=== PATIENT | male | born 1950 | race African-American/Black ===

== ENCOUNTER 2018-01-16 22:08 | Emergency (ER) | payer OTHER ==
[2018-01-16 22:37] VITALS: BP 137/91; PULSE 88; TEMP 98.2; BMI 22.8
--- NOTE | 2018-01-16 22:53 | PDOC ---
Attending Attestation - HPI HPI: 01/16/18 23:38 The patient is a 67 year old male brought in by EMS, with a significant past medical history of HIV, COPD, lung cancer, pneumonia, sepsis, and alcoholism, who presents to the emergency department for alcohol intoxication. The patient reports he drank "2 beers", took the #2 bus to go home, but ended up in a location he was not familiar with, and dialed 911, which prompted his visit to the emergency department. The patient denies falls, complaints, and any other symptoms. PCP: Dr. Cortes <Felicia Robles - Last Filed: 01/16/18 23:38> - Resident Resident Name: Ruth Ann Keyes - ED Attending Attestation I have performed the following: I have examined & evaluated the patient, The case was reviewed & discussed with the resident, I agree w/resident's findings & plan, Exceptions are as noted - Physicial Exam PE: 01/17/18 01:44 patient is Somnolent, easily arousable to verbal stimuli, alcohol on breath is noted, in no distress Normocephalic, atraumatic PERRLA, EOMI, no nystagmus Cranial nerves II through XII grossly intact, motor is 5 of 54; gait is deferred at this time - Medical Decision Making 01/17/18 01:45 Patient 67-year-old male with history of HIV, alcohol abuse who presents to the ER with acute alcohol intoxication. No traumatic injuries are noted. Patient denies toxic co-ingestion. No focal neurological deficits are noted. There is no evidence of overt trauma. Will observe to clinical sobriety and will discharge. <Walter Fine - Last Filed: 01/17/18 01:46> Attestations - Attestations Documentation prepared by Felicia Robles, acting as site medical director for Walter Fine MD. <Felicia Robles - Last Filed: 01/16/18 23:38>
--- NOTE | 2018-01-16 23:46 | PDOC ---
History of Present Illness - General Chief Complaint: Alcohol intoxication Stated Complaint: INTOX Time Seen by Provider: 01/16/18 22:13 History Source: Patient Exam Limitations: No Limitations - History of Present Illness Initial Comments: This is a 67 YOM with h/o HIV (CD4 256 and HIV-1 RNA 30 on 12/23/17, patient states he is on HAART), COPD, HLD, and elevated PSA for which he had a prostate biopsy about [address] Purcell, who was BIBA for intoxication. The patient states he was drinking around [facility] after buying beer from a convenience store, and he took the #2 bus to get home, but somehow the bus took him too far and he ended up being dropped off near our hospital. He called 911 because he did not know what else to do. He denies any symptoms currently, and denies having fallen or injured himself tonight or any time recently. He is followed by Dr. Cortes for ID and also by Dr. Purcell. Past History - Past Medical History Allergies/Adverse Reactions: Allergies Allergy/AdvReac Type Severity Reaction Status Date / Time No Known Allergies Allergy Verified 01/08/16 15:21 Home Medications: Ambulatory Orders Ipratropium/Albuterol Sulfate [Combivent Respimat Inhal [place]] 4 gm IH BID #1 mist.inhal 05/13/17 Albuterol Sulfate 0.5% [Ventolin 0.5% Nebulizing Soln. -] 1 amp NEB Q6H PRN #1 box 06/24/17 Budesonide/Formeterol Fumarate [SYMBICORT 160/4.5mcg -] 1 inh PO DAILY #1 cannister 06/24/17 Ipratropium/Albuterol Sulfate [Combivent Respimat Inhal [place]] 4 gm IH BID #30 aer.w.adap 06/24/17 Nebulizer [Compact Compressor Nebulizer] 1 each MC PRN #1 each 06/24/17 Albuterol Sulfate Inhaler - [Ventolin Hfa Inhaler -] 1 - 2 inh PO QID PRN #1 inhaler 06/25/17 Elviteg/Cob/Emtri/Tenof Alafen [Genvoya (Non-Formulary)] 1 each PO DAILY #30 tablet 08/12/17 Atorvastatin Ca [Lipitor] 10 mg PO HS #30 tablet 08/19/17 Anemia: No Asthma: No Cancer: No Cardiac Disorders: No CVA: No COPD: Yes CHF: No Dementia: No Diabetes: No GI Disorders: No Disorders: No HTN: No Hypercholesterolemia: No Liver Disease: No Seizures: No Thyroid Disease: No - Suicide/Smoking/Psychosocial Hx Smoking History: Former smoker Have you smoked in the past 12 months: Yes Number of Cigarettes Smoked Daily: 10 If you are a former smoker, when did you quit?: 3 MONTHS AGO Cigars Per Day: 0 Information on smoking cessation initiated: No 'Breaking Loose' booklet given: 01/21/15 Hx Alcohol Use: No Drug/Substance Use Hx: No Substance Use Type: None Hx Substance Use Treatment: No Review of Systems - Review of Systems Able to Perform ROS?: Yes Constitutional: No: Chills, Fever, Unexplained wgt Loss HEENTM: No: Nose Congestion, Throat Pain Respiratory: No: Cough, Shortness of Breath Cardiac (ROS): No: Chest Pain, Palpitations ABD/GI: No: Constipated, Diarrhea, Nausea, Vomiting : No: Burning, Dysuria Musculoskeletal: No: Back Pain, Neck Pain Integumentary: No: Bruising, Rash Neurological: No: Headache, Numbness, Tingling, Weakness, Dizziness Endocrine: No: Unexplained Weight Gain, Unexplained Weight Loss *Physical Exam - Vital Signs Last Vital Signs Temp Pulse Resp BP Pulse Ox 98.2 F 88 18 137/91 97 01/16/18 22:19 01/16/18 22:19 01/16/18 22:19 01/16/18 22:19 01/16/18 22:19 - Physical Exam General Appearance: Yes: Nourished, Other (slurred speech, odor of alcohol is present, appears intoxicated). No: Apparent Distress HEENT: positive: EOMI, SARIKA, Normal Voice, Hearing Grossly Normal. negative: Scleral Icterus (R), Scleral Icterus (L), Nasal Congestion Neck: positive: Trachea midline, Supple. negative: Tender, Rigid Respiratory/Chest: positive: Lungs Clear, Normal Breath Sounds. negative: Respiratory Distress, Crackles, Rhonchi, Stridor, Wheezing Cardiovascular: positive: Regular Rhythm, Regular Rate, S1, S2. negative: Edema , JVD, Murmur Gastrointestinal/Abdominal: positive: Normal Bowel Sounds, Flat, Soft. negative : Tender, Organomegaly, Pulsatile Mass, Guarding Musculoskeletal: positive: Normal Inspection. negative: Decreased Range of Motion, Vertebral Tenderness Extremity: positive: Normal Capillary Refill, Normal Inspection, Normal Range of Motion. negative: Tender, Cyanosis Integumentary: positive: Normal Color, Dry, Warm, Other (new-appearing superficial skin tears overlying anterior mid-shaft tibia which are hemostatic and appear clean). negative: Erythema, Rash, Bruising Neurologic: positive: mitten sewer II-XII NML intact, Fully Oriented, Alert, Normal Mood/ Affect, Normal Response, Motor Strength 5/5. negative: EOM Palsy, Facial Droop , Confused, Disoriented Medical Decision Making - Medical Decision Making 67 YOM patient p/w acute intoxication with alcohol. Initial Vital Signs Temp Pulse Resp BP Pulse Ox 98.2 F 88 18 137/91 97 01/16/18 22:19 01/16/18 22:19 01/16/18 22:19 01/16/18 22:19 01/16/18 22:19 Exam: Slurred speech, odor of alcohol present, appears intoxicated, atraumatic except superficial skin avulsions overlying left anterior tibia. The patient receives regular care with Dr. Cortes, which is corroborated by [facility] EMR. He does not have recent anemia on his labs, or macrocytosis of RBC, and his neuro exam is normal other than intoxication. I am not concerned for thiamine or B12 deficiency at this time. He has very clean-appearing superficial skin tears W/U ordered: None TX ordered: None The patient is acutely intoxicated and is not appropriate for discharge home at this time. He will stay in the ED pending sobriety. The patient's care is signed out to Dr. Cohen at the end of my shift. *DC/Admit/Observation/Transfer Diagnosis at time of Disposition: Alcohol intoxication - Referrals Referrals: Carlos Cortes MD [Primary Care Provider] - - Patient Instructions Additional Instructions: You were seen in the ER for alcohol intoxication. We did an examination, found some small skin tears you sustained tonight, and dressed them with gauze. We kept you in the ER until you became sober enough to walk out and get yourself home. Please follow up with your regular doctor in 1-3 days. Please avoid drinking alcohol to excess, especially because you have chronic illness and this could create complications. Please come back to the ER at any time, 24 hours a day, for any new or worsening symptoms. If you are having severe or life threatening symptoms, or symptoms that make it unsafe to drive or have someone drive you, please call 911. - Post Discharge Activity
--- NOTE | 2018-01-17 06:36 | PDOC ---
*Physical Exam - Vital Signs Last Vital Signs Temp Pulse Resp BP Pulse Ox 98.2 F 88 18 137/91 97 01/16/18 22:19 01/16/18 22:19 01/16/18 22:19 01/16/18 22:19 01/16/18 22:19 Medical Decision Making - Medical Decision Making 01/17/18 06:37 PT SIGNED OUT TO ME AND HE IS AWAKE AND ALERT. HANGING OUT AND WAITING FOR SUN TO COME UP. HE IS REQUESTING A MEDICAID CAB TO GET HOME IN . WE WILL CALL. *DC/Admit/Observation/Transfer Diagnosis at time of Disposition: Alcohol intoxication - Discharge Dispostion Disposition: HOME Condition at time of disposition: Improved Decision to Admit order: No - Referrals Referrals: Carlos Cortes MD [Primary Care Provider] - - Patient Instructions Printed Discharge Instructions: DI for Alcohol Abuse Additional Instructions: You were seen in the ER for alcohol intoxication. We did an examination, found some small skin tears you sustained tonight, and dressed them with gauze. We kept you in the ER until you became sober enough to walk out and get yourself home. Please follow up with your regular doctor in 1-3 days. Please avoid drinking alcohol to excess, especially because you have chronic illness and this could create complications. Please come back to the ER at any time, 24 hours a day, for any new or worsening symptoms. If you are having severe or life threatening symptoms, or symptoms that make it unsafe to drive or have someone drive you, please call 911. - Post Discharge Activity
== END 2018-01-17 07:04 | disposition home or self-care (01) ==
LOC: JER 22:08
DX: F10.120 Alcohol abuse with intoxication, uncomplicated (principal); J44.9 Chronic obstructive pulmonary disease, unspecified; Z21 Asymptomatic human immunodeficiency virus [HIV] infection status; Z85.118 Personal history of other malignant neoplasm of bronchus and lung
CPT/HCPCS: 99281-25

== ENCOUNTER 2018-07-03 09:41 | Emergency (ER) | payer OTHER ==
[2018-07-03 09:50] VITALS: BMI 20.9
--- NOTE | 2018-07-03 10:04 | PDOC ---
History of Present Illness - General Chief Complaint: Shortness of Breath Stated Complaint: SOB Time Seen by Provider: 07/03/18 10:04 History Source: Patient Exam Limitations: No Limitations - History of Present Illness Initial Comments: 07/03/18 11:48 Mr Carrillo is a 68 yo M h/o HIV (CD4 256 and HIV-1 RNA 30 on 12/23/17, on HAART) , COPD, HLD. He is s/p recent diagnosis of lung cancer s/p radiation therapy. Pt presents with a complaint of progressively worsening shortness of breath Pt states that approximately 2 weeks ago, he was set up for home O2 by Dr Gurrola He was supposed to call the company for some reason buy failed to do so He had an appointment with his Oncologist today who referred him to the ER because he reports dyspnea on exertion and shortness of breath AND pt was unable to set up his home O2 No fevers or chills No cough Pt has been using nebs with minimal improvement No chest pain No lower extremity edema PMH: HIV, COPD, HLD, Lung Cancer PSH: Meds: Combivent, Genvoya, Lipitor, Symbicort, Advair, Incruse ALL: NKDA Social: (+) tobacco use, denies drugs, (+) alcohol use Review of Systems Constitutional: No: Chills, Fever, Unexplained wgt Loss HEENTM: No: Nose Congestion, Throat Pain Respiratory: No: Cough, Shortness of Breath Cardiac (ROS): No: Chest Pain, Palpitations ABD/GI: No: Constipated, Diarrhea, Nausea, Vomiting : No: Burning, Dysuria Musculoskeletal: No: Back Pain, Neck Pain Integumentary: No: Bruising, Rash Neurological: No: Headache, Numbness, Tingling, Weakness, Dizziness Endocrine: No: Unexplained Weight Gain, Unexplained Weight Loss 07/03/18 12:05 GENERAL: The patient is in no acute distress. HEAD: Normal with no signs of trauma. EYES: PERRLA, EOMI, sclera anicteric, conjunctiva clear. ENT: Ears normal, nares patent, oropharynx clear without exudates. Moist mucous membranes. NECK: Normal range of motion LUNGS: faint breath sounds, expiratory wheezing noted HEART:Regular rate and rhythm, normal S1 and S2 without murmur, rub or gallop. ABDOMEN: Soft, nontender, normoactive bowel sounds. EXTREMITIES: Normal range of motion, no edema. No clubbing or cyanosis. No erythema, or tenderness. NEUROLOGICAL: Cranial nerves II through XII grossly intact. Normal speech. No focal neurological deficits. MUSCULOSKELETAL: Back non-tender to palpation, no CVA tenderness SKIN: Warm, Dry, normal turgor, no rashes or lesions noted. 07/03/18 12:09 07/03/18 12:10 Past History - Past Medical History Allergies/Adverse Reactions: Allergies Allergy/AdvReac Type Severity Reaction Status Date / Time No Known Allergies Allergy Verified 07/03/18 09:47 Home Medications: Ambulatory Orders Albuterol Sulfate Inhaler - [Ventolin Hfa Inhaler -] 1 - 2 inh PO QID PRN #1 inhaler 06/25/17 Budesonide/Formeterol Fumarate [SYMBICORT 160/4.5mcg -] 1 inh PO DAILY #1 cannister 01/23/18 Fluticasone/Salmeterol [Advair Hfa 230-21 Mcg Inhaler] 1 inh PO BID #1 inhaler 01/23/18 Albuterol Sulfate 0.5% [Ventolin 0.5% Nebulizing Soln. -] 1 amp NEB Q6H PRN #1 box 02/06/18 Atorvastatin Ca [Lipitor] 10 mg PO HS #30 tablet 03/17/18 Elviteg/Cob/Emtri/Tenof Alafen [Genvoya Tablet] 1 each PO DAILY #30 tablet 05/14 Ipratropium/Albuterol Sulfate [Combivent Respimat 20-100 Mcg] 1 inh IH QID #1 aer.w.adap 06/18/18 Anemia: No Asthma: No Cancer: Yes (lung cancer 2017) Cardiac Disorders: No CVA: No COPD: Yes CHF: No Dementia: No Diabetes: No GI Disorders: No Disorders: No HTN: No Hypercholesterolemia: No Liver Disease: No Seizures: No Thyroid Disease: No - Suicide/Smoking/Psychosocial Hx Smoking History: Former smoker Have you smoked in the past 12 months: No Number of Cigarettes Smoked Daily: 20 If you are a former smoker, when did you quit?: 2017 Cigars Per Day: 0 Information on smoking cessation initiated: No 'Breaking Loose' booklet given: 01/21/15 Hx Alcohol Use: No Drug/Substance Use Hx: No Substance Use Type: None Hx Substance Use Treatment: No *Physical Exam - Vital Signs Last Vital Signs Temp Pulse Resp BP Pulse Ox 98.3 F 82 22 H 119/77 98 07/03/18 09:45 07/03/18 09:45 07/03/18 09:45 07/03/18 09:45 07/03/18 09:45 ED Treatment Course - LABORATORY CBC & Chemistry Diagram: 07/03/18 10:45 07/03/18 10:45 Medical Decision Making - Medical Decision Making 07/03/18 12:10 Twelve-lead EKG was performed and reviewed by me. There is normal sinus rhythm with a normal rate of 71 bpm, axis nml, no ST elevation or depressions. T wave abnormalities. 07/03/18 12:57 Laboratory Tests 07/03/18 07/03/18 07/03/18 10:45 10:45 10:45 WBC 5.0 Hgb 13.9 Hct 42.5 Plt Count 310 D Neutrophils % 52.2 Lymphocytes % 30.0 Monocytes % 13.8 H INR 0.98 BUN 6 L Creatinine 0.7 CTA pending I have contacted case management They have contacted this patient's O2 supplier company Awaiting a call back to see if this can be scheduled 07/03/18 13:58 CTA: No PE, Slight increase in nodule size Call placed to Dr montgomery to update her on CT finding Pt O2 arranged, it will be delivered between 2:30 and 3pm Ambulance being arranged to get pt home Clinical impression: COPD requiring O2 *DC/Admit/Observation/Transfer Diagnosis at time of Disposition: COPD (chronic obstructive pulmonary disease) with chronic bronchitis - Discharge Dispostion Disposition: HOME Condition at time of disposition: Stable Decision to Admit order: No - Referrals - Patient Instructions Printed Discharge Instructions: DI for Chronic Obstructive Pulmonary Disease Additional Instructions: Thank you for coming in to the ER today Your Oxygen will be delivered today Please return to the ER for any other concerns or complaints Please follow up with your primary care physician within 1 week - Post Discharge Activity
[2018-07-03] MEDS ORDERED: ALBUTEROL SO4 2.5/IPRATROPIUM 0.5 INH SOL 3 ML VIAL.NEB. NEB ONE ×2 (10:27→10:56)
[2018-07-03 11:10] LABS: ARTERIAL BLD GAS O2 SATURATION 90.8 % (90-98.9); ARTERIAL BLOOD GAS BASE EXCESS 1.4 meq/l (-2-2); ARTERIAL BLOOD GAS PCO2 45.8 mmHg (35-45); ARTERIAL BLOOD GAS PO2 63.5 mmHg (80-100); ARTERIAL BLOOD GAS pH 7.38 (7.35-7.45); CARBOXYHEMOGLOBIN 1.5 gm% (0.5-2.0)
[2018-07-03 11:10] LABS: BASO % 1.3 % (0-2.0); EOS % 2.7 % (0-4.5); HEMATOCRIT 42.5 % (35.4-49); HEMOGLOBIN 13.9 GM/dL (11.7-16.9); MCH 31.7 pg (25.7-33.7); MCHC 32.7 g/dl (32.0-35.9); MEAN PLT VOLUME 7.7 fl (7.5-11.1); MONO % 13.8 % (3.8-10.2); NEUT % 52.2 % (42.8-82.8); PLATELET COUNT 310 K/MM3 (134-434); RBC 4.38 M/mm3 (4.00-5.60); RDW 14.8 % (11.9-15.9)
[2018-07-03 11:18] LABS: ALBUMIN 3.7 g/dl (3.4-5.0); ALK PHOS 148 U/L (45-117); ANION GAP 9 MMOL/L (8-16); BILIRUBIN,TOTAL 0.7 mg/dL (0.2-1); BLOOD UREA NITROGEN 6 mg/dL (7-18); CALCIUM 9.4 mg/dL (8.5-10.1); CHLORIDE 104 mmol/L (98-107); CO2 27 mmol/L (21-32); CREATININE 0.7 mg/dL (0.55-1.3); GLUCOSE,RANDOM 100 mg/dL (74-106); POTASSIUM 4.1 mmol/L (3.5-5.1); SGOT/AST 36 U/L (15-37); SGPT/ALT 24 U/L (13-61); SODIUM 140 mmol/L (136-145); TOT PROT 7.2 g/dl (6.4-8.2)
[2018-07-03 11:18] LABS: ALLENS TEST POSITIVE
[2018-07-03 11:48] LABS: INR 0.98 (0.83-1.09); PROTHROMBIN TIME (PATIENT) 11.6 SEC (9.7-13.0)
[2018-07-03 13:54] VITALS: BP 146/77; PULSE 86; TEMP 98.4
[2018-07-03 23:49] LABS: PLATELET ESTIMATE ADEQUATE
--- NOTE | 2018-07-04 12:47 | EKG ---
Test Reason : Blood Pressure : / mmHG Vent. Rate : 071 BPM Atrial Rate : 071 BPM P-R Int : 156 ms QRS Dur : 076 ms QT Int : 368 ms P-R-T Axes : 086 077 071 degrees QTc Int : 399 ms NORMAL SINUS RHYTHM RIGHT ATRIAL ENLARGEMENT WHEN COMPARED WITH ECG OF 18-JUN-2018 10:57, NO SIGNIFICANT CHANGE WAS FOUND Confirmed by ANNIE NOLASCO MD ([id number]) on 07/04/2018 12:47:19 PM Referred By: Confirmed By:ANNIE NOLASCO MD
== END 2018-07-03 14:25 | disposition home or self-care (01) ==
LOC: JER 09:41
PROC: 3E0F7GC Introduction of Other Therapeutic Substance into Respiratory Tract, Via Natural or Artificial Opening (ICD-10-PCS; principal; 2018-07-03)
DX: J44.9 Chronic obstructive pulmonary disease, unspecified (principal); Z87.891 Personal history of nicotine dependence; Z85.118 Personal history of other malignant neoplasm of bronchus and lung
CPT/HCPCS: 36415; 36600; 71275-TC; 80053; 82375; 82803; 83050; 85025; 85610; 93005; 93010; 94640; 99284-25

== ENCOUNTER 2018-07-31 12:32 | Inpatient (IN) | payer OTHER ==
--- NOTE | 2018-07-31 12:46 | PDOC ---
History of Present Illness - General Chief Complaint: Shortness of Breath Stated Complaint: FLUID IN LUNG Time Seen by Provider: 07/31/18 12:46 History Source: Patient Exam Limitations: No Limitations - History of Present Illness Initial Comments: 07/31/18 13:11 68 year old male with PMH HIV (compliant with medication, unknown last CD4), COPD, lung CA (radiation), hydrocele, thrush x1 month ago presented to ED for SOB. Pt was seen by urologist today for hydrocele, was noted to have increased work of breathing, and sent to ED. Pt reported increasing SOB, increasing productive yellow cough, sore throat, rhinorrhea x2 weeks. Pt finished his last steroid course x2 weeks ago, and since then has had increased work of breathing/ cough. Pt denied fever, chills, chest pain, nausea, vomiting, diarrhea, abdominal pain. Pt is prescribed 2L home O2, but per home health aid pt is noncompliant. Recent PE study 07/03/18 negative. Lumbar spine MRI 10/09/17 concerning for mets to L3. Recent bone scan 06/10/18 was concerning for mets to lumbar/thoracic spine. Pending PET scan. Supervisor [employer]: Dr. Gurrola Hem/Onc: Claritza Past History - Past Medical History Allergies/Adverse Reactions: Allergies Allergy/AdvReac Type Severity Reaction Status Date / Time No Known Allergies Allergy Verified 07/03/18 09:47 Home Medications: Ambulatory Orders Albuterol Sulfate Inhaler - [Ventolin Hfa Inhaler -] 1 - 2 inh PO QID PRN #1 inhaler 06/25/17 Albuterol Sulfate 0.5% [Ventolin 0.5% Nebulizing Soln. -] 1 amp NEB Q6H PRN #1 box 02/06/18 Atorvastatin Ca [Lipitor] 10 mg PO HS #30 tablet 03/17/18 Elviteg/Cob/Emtri/Tenof Alafen [Genvoya Tablet] 1 each PO DAILY #30 tablet 05/14 Ipratropium/Albuterol Sulfate [Combivent Respimat 20-100 Mcg] 1 inh IH QID #1 aer.w.adap 06/18/18 Albuterol 2.5/Ipratropium 0.5 [Duoneb -] 1 neb NEB Q8H PRN #30 vial 11/08/18 Fluticasone/Salmeterol [Advair Hfa 230-21 Mcg Inhaler] 1 inh PO BID #1 inhaler 07/09/18 Anemia: No Asthma: No Cancer: Yes (lung cancer 2017) Cardiac Disorders: No CVA: No COPD: Yes CHF: No Dementia: No Diabetes: No GI Disorders: No Disorders: No HTN: No Hypercholesterolemia: No Liver Disease: No Seizures: No Thyroid Disease: No - Suicide/Smoking/Psychosocial Hx Smoking History: Smoker current status UNK Have you smoked in the past 12 months: No Number of Cigarettes Smoked Daily: 20 If you are a former smoker, when did you quit?: 2017 Cigars Per Day: 0 'Breaking Loose' booklet given: 01/21/15 Hx Alcohol Use: No Drug/Substance Use Hx: No Substance Use Type: None Hx Substance Use Treatment: No Review of Systems - Review of Systems Able to Perform ROS?: Yes Comments:: 07/31/18 13:13 General: denied fever, chills, night sweats, generalized weakness. HEENT: denied sore throat, rhinorrhea, ear pain. Heart: denied chest pain, palpitations, syncope, lower extremity swelling, diaphoresis. Respiratory: admitted to shortness of breath, cough, sputum production. denied hemoptysis. Abdomen: denied abdominal pain, nausea, vomiting, diarrhea, constipation, blood in stool. : denied dysuria, increased urinary frequency, hematuria, urinary incontinence , flank pain. Back: denied back pain. Musculoskeletal: denied joint pain, muscle pain, joint swelling. Neurological: denied headache, dizziness, numbness, tingling, weakness. Skin: denied rash, laceration, abrasion. *Physical Exam - Vital Signs Last Vital Signs Temp Pulse Resp BP Pulse Ox 97.9 F 119 H 28 H 109/74 90 L 07/31/18 12:42 07/31/18 12:42 07/31/18 12:42 07/31/18 12:42 07/31/18 12:42 - Physical Exam Comments: 07/31/18 13:14 Constitutional: Well-nourished, Well-developed, appearing stated age. HEENT: head is normocephalic, atraumatic. EOMI. PERRLA. no posterior pharyngeal erythema. no tonsillar swelling. no tonsillar exudates. white patch on tongue, unable to be scraped off with tongue depressor. Neck: supple. Full ROM. Heart: regular rhythm. no murmurs, rubs or gallops. Lungs: decreased air movement and wheezing bilaterally. speaking full sentences. Abdomen: soft, nontender. normal bowel sounds. no rebound, guarding, masses. Extremities: Peripheral pulses intact. No lower extremity edema. Neurological: CN 2-12 grossly intact. Moves all four extremities. Psych: awake, alert, oriented x3. Follows commands. Answers questions appropriately. Moderate Sedation - Procedure Monitoring Vital Signs: Procedure Monitoring Vital Signs Temperature 97.9 F 07/31/18 12:42 Pulse Rate 119 H 07/31/18 12:42 Respiratory Rate 28 H 07/31/18 12:42 Blood Pressure 109/74 07/31/18 12:42 O2 Sat by Pulse Oximetry (%) 90 L 07/31/18 12:42 ED Treatment Course - LABORATORY CBC & Chemistry Diagram: 07/31/18 13:41 07/31/18 13:20 Medical Decision Making - Medical Decision Making 07/31/18 13:14 68 year old male with PMH HIV unknown last CD4, COPD, lung CA (radiation) presented to ED for increasing SOB/cough/sputum production x1-2 weeks since finishing last steroid course. REcent CTA negative for PE 07/03/18. Recent bone scan 06/10/18 was concerning for mets to lumbar/thoracic spine. Initial Vital Signs Temp Pulse Resp BP Pulse Ox 97.9 F 119 H 28 H 109/74 90 L 07/31/18 12:42 07/31/18 12:42 07/31/18 12:42 07/31/18 12:42 07/31/18 12:42 Afebrile. Tachycardic. Tachypneic. Hypotensive. Hypoxic on room air. 500 cc bolus normal saline ordered for hydration. Duonebs ordered for SOB/hypoxia. Pt was placed on 2L O2, SpO2 increased to 97%. Pt was taken off O2, SpO2 94%. - Will conservatively use O2 to prevent CO2 retention. Magnesium ordered for COPD exacerbation. EKG performed at 1409: rate 100, regular rhythm, normal axis, normal intervals, no acute ST changes. 07/31/18 15:40 Pt reassesed, reported improved SOB with duonebs. Increased air movement on auscultation. Improved wheezing. CBC WBC 7.0 K/mm3 (4.0-10.0) 07/31/18 13:41 RBC 4.43 M/mm3 (4.00-5.60) 07/31/18 13:41 Hgb 14.7 GM/dL (11.7-16.9) 07/31/18 13:41 Hct 43.0 % (35.4-49) 07/31/18 13:41 MCV 97.0 fl (80-96) H 07/31/18 13:41 MCH 33.3 pg (25.7-33.7) 07/31/18 13:41 MCHC 34.3 g/dl (32.0-35.9) 07/31/18 13:41 RDW 13.4 % (11.9-15.9) 07/31/18 13:41 Plt Count 240 K/MM3 (134-434) D 07/31/18 13:41 MPV 8.8 fl (7.5-11.1) D 07/31/18 13:41 Absolute Neuts (auto) 5.9 K/mm3 (1.5-8.0) 07/31/18 13:41 Neutrophils % 84.6 % (42.8-82.8) H D 07/31/18 13:41 Lymphocytes % 10.6 % (8-40) D 07/31/18 13:41 Monocytes % 4.6 % (3.8-10.2) 07/31/18 13:41 Eosinophils % 0.1 % (0-4.5) D 07/31/18 13:41 Basophils % 0.1 % (0-2.0) 07/31/18 13:41 Nucleated RBC % 0 % (0-0) 07/31/18 13:41 No leukocytosis. No anemia. CMP Sodium 136 mmol/L (136-145) 07/31/18 13:20 Potassium 4.4 mmol/L (3.5-5.1) 07/31/18 13:20 Chloride 101 mmol/L (98-107) 07/31/18 13:20 Carbon Dioxide 26 mmol/L (21-32) 07/31/18 13:20 Anion Gap 9 MMOL/L (8-16) 07/31/18 13:20 BUN 14 mg/dL (7-18) 07/31/18 13:20 Creatinine 0.9 mg/dL (0.55-1.3) 07/31/18 13:20 Creat Clearance w eGFR > 60 (>60) 07/31/18 13:20 Random Glucose 142 mg/dL (74-106) H 07/31/18 13:20 Lactic Acid 2.1 mmol/L (0.4-2.0) H 07/31/18 13:20 Calcium 10.2 mg/dL (8.5-10.1) H 07/31/18 13:20 Total Bilirubin 0.6 mg/dL (0.2-1) 07/31/18 13:20 AST 42 U/L (15-37) H 07/31/18 13:20 ALT 47 U/L (13-61) 07/31/18 13:20 Alkaline Phosphatase 121 U/L (45-117) H 07/31/18 13:20 Creatine Kinase 248 IU/L (26-308) 07/31/18 13:41 Creatine Kinase Index 3.9 % (0.0-5.0) 07/31/18 13:41 CK-MB (CK-2) 9.9 ng/mL (0.5-3.6) H 07/31/18 13:41 Troponin I < 0.02 ng/ml (0.00-0.05) 07/31/18 13:41 B-Natriuretic Peptide 85.2 pg/ml (5-125) 07/31/18 13:41 Total Protein 7.8 g/dl (6.4-8.2) 07/31/18 13:20 Albumin 4.0 g/dl (3.4-5.0) 07/31/18 13:20 No electrolyte deficiencies. Mild lactic acidosis. - second 500 cc normal saline bolus ordered No MICHAEL Normal troponin Elevated CKMB BNP normal VBG: no acidosis. no CO2 retention. increased O2. mild increased HCO3. 07/31/18 15:58 Pt to be admitted for COPD exacerbation. - Microblog sent - Ceftriaxone ordered CXR: no focal airspace disease or pleural effusion. normal cardiac silhouette size. old healed right posterior rib fractures. calcification of the aortic knob. 07/31/18 16:35 I spoke with Claritza, hem/onc, about the patient to let her know he will be admitted to the hospital. She stated that his lung cancer is stable and she will not consult on his admission at this time. She rec outpatient PET scan. 07/31/18 17:38 Repeat lactate 3.0 - Microblog sent to admitting team *DC/Admit/Observation/Transfer Diagnosis at time of Disposition: COPD exacerbation, HIV (human immunodeficiency virus infection), Hypoxia, Lung cancer - Discharge Dispostion Condition at time of disposition: Stable Decision to Admit order: Yes - Referrals Referrals: Melissa Coronel MD [Primary Care Provider] - - Patient Instructions - Post Discharge Activity
[2018-07-31] MEDS ORDERED: methylPREDNISolone NA SUCC 125 MG/2 ML VIAL IVPB ONE (13:06)
[2018-07-31] MEDS ORDERED: ALBUTEROL SO4 2.5/IPRATROPIUM 0.5 INH SOL 3 ML VIAL.NEB. NEB ONE ×5 (13:06→20:05)
[2018-07-31] MEDS ORDERED: MAGNESIUM SULF 50% (8.12 MEQ/2 ML-1 GM VIAL) IVPB ONE (13:06)
[2018-07-31] MEDS ORDERED: SODIUM CHLORIDE 500 ML IV STA ×2 (13:06→15:47)
[2018-07-31] MEDS ORDERED: MAGNESIUM 1GM/D5W - 2 GM/200 ML IVPB IVPB ONE (13:21)
[2018-07-31] MEDS ORDERED: methylPREDNISolone NA SUCC 125 MG/2 ML VIAL ONE (13:21)
[2018-07-31 14:05] LABS: VENOUS PC02 50.3 mmHg (38-52); VENOUS PH 7.34 (7.32-7.42)
[2018-07-31 14:06] LABS: BASO % 0.1 % (0-2.0); EOS % 0.1 % (0-4.5); HEMOGLOBIN 14.7 GM/dL (11.7-16.9); LYMPH % 10.6 % (8-40); MCH 33.3 pg (25.7-33.7); MCHC 34.3 g/dl (32.0-35.9); MEAN PLT VOLUME 8.8 fl (7.5-11.1); MONO % 4.6 % (3.8-10.2); NEUT % 84.6 % (42.8-82.8); PLATELET COUNT 240 K/MM3 (134-434); RBC 4.43 M/mm3 (4.00-5.60); RDW 13.4 % (11.9-15.9)
[2018-07-31 14:30] LABS: ALK PHOS 121 U/L (45-117); ANION GAP 9 MMOL/L (8-16); BILIRUBIN,TOTAL 0.6 mg/dL (0.2-1); BLOOD UREA NITROGEN 14 mg/dL (7-18); CALCIUM 10.2 mg/dL (8.5-10.1); CHLORIDE 101 mmol/L (98-107); CO2 26 mmol/L (21-32); CREATININE 0.9 mg/dL (0.55-1.3); GLUCOSE,RANDOM 142 mg/dL (74-106); POTASSIUM 4.4 mmol/L (3.5-5.1); SGOT/AST 42 U/L (15-37); SGPT/ALT 47 U/L (13-61); SODIUM 136 mmol/L (136-145); TOT PROT 7.8 g/dl (6.4-8.2)
--- NOTE | 2018-07-31 14:43 | PDOC ---
Attending Attestation - Resident Resident Name: Debby Castaneda - ED Attending Attestation I have performed the following: I have examined & evaluated the patient, The case was reviewed & discussed with the resident, I agree w/resident's findings & plan, Exceptions are as noted - HPI HPI: 07/31/18 14:40 68 yo male ho HIV copd, htn lung CA ( s/p radiation) questionable mets to spine unclear , followed by dr peter and dr montgomery, here from urologist office where he was being evaluated for a hydrocele, noted to be sob. pt states has been feeling more sob for last two days. no f/c no leg swelling. no ho pe or dvt. pt did have a negative cta for pe earlier this month. no leg swelling. no other comlaints. - Physicial Exam PE: 07/31/18 14:41 awake alert lungs decrased air flow bilaterally, prolonged expiration, wheezing bilaterally heart rrr no mrg abd soft nt nd. ext wwp no edema no calf tenderness. nuero alert oriented x 3 skin warm and dry. - Medical Decision Making 07/31/18 14:42 differential copd, postobstructive pna, chf, effusion. plan labs ekg cxr trop duonebs steroids. pardeep admit.
[2018-07-31 14:44] LABS: N-TERMINAL BNP 85.2 pg/ml (5-125)
[2018-07-31] MEDS ORDERED: CEFTRIAXONE 1 GM in DEXTROSE 5%-WATER - 100 ML IVPB ONE (15:54)
--- NOTE | 2018-07-31 16:08 | HP ---
CHIEF COMPLAINT:sob PCP:Dr peter HISTORY OF PRESENT ILLNESS: 68 year old male with PMH HIV (compliant with medication, unknown last CD4), COPD, lung CA (radiation), hydrocele, thrush x1 month ago presented to ED for SOB. Pt was seen by urologist today for hydrocele, was noted to have increased work of breathing, and sent to ED. Pt reported increasing SOB, increasing productive yellow cough, sore throat, rhinorrhea x2 weeks. Pt finished his last steroid course x2 weeks ago, and since then has had increased work of breathing/ cough. Pt denied fever, chills, chest pain, nausea, vomiting, diarrhea, abdominal pain. Pt is prescribed 2L home O2, but per home health aid pt is noncompliant. Recent PE study 07/03/18 negative. Lumbar spine MRI 10/09/17 concerning for mets to L3. Recent bone scan 06/10/18 was concerning for mets to lumbar/thoracic spine. Pending PET scan. Medical Practice Administrator: Dr. Gurrola Hem/Onc: Claritza ER course was notable for: (1)cbc, cmp (2)NS bolus 500 ccx 2 (3)Broncho dilators Recent Travel:denies PAST MEDICAL HISTORY: as per HPI PAST SURGICAL HISTORY: hydrocele drainage 3 years ago Social History: Smokin PPD for 54 years quit 2 years ago Alcohol:used to be heavy drinker bottle of vodka daily , quit 2 years ago Drugs: Marijuana Family History: Allergies No Known Allergies Allergy (Verified 07/03/18 09:47) HOME MEDICATIONS: Home Medications Medication Instructions Recorded Albuterol Sulfate Inhaler - 1 - 2 inh PO QID PRN #1 inhaler 06/25/17 [Ventolin Hfa Inhaler -] Albuterol Sulfate 0.5% [Ventolin 1 amp NEB Q6H PRN #1 box 02/06/18 0.5% Nebulizing Soln. -] Atorvastatin Ca [Lipitor] 10 mg PO HS #30 tablet 03/17/18 Elviteg/Cob/Emtri/Tenof Alafen 1 each PO DAILY #30 tablet 05/14/18 [Genvoya Tablet] Ipratropium/Albuterol Sulfate 1 inh IH QID #1 aer.w.adap 06/18/18 [Combivent Respimat 20-100 Mcg] Albuterol 2.5/Ipratropium 0.5 1 neb NEB Q8H PRN #30 vial 07/09/18 [Duoneb -] Fluticasone/Salmeterol [Advair Hfa 1 inh PO BID #1 inhaler 07/09/18 230-21 Mcg Inhaler] REVIEW OF SYSTEMS CONSTITUTIONAL: Absent: fever, chills, diaphoresis, generalized weakness, malaise, loss of appetite, weight change HEENT: Absent: rhinorrhea, nasal congestion, throat pain, throat swelling, difficulty swallowing, mouth swelling, ear pain, eye pain, visual changes CARDIOVASCULAR: Absent: chest pain, syncope, palpitations, irregular heart rate, lightheadedness , peripheral edema RESPIRATORY: Absent: cough, shortness of breath, dyspnea with exertion, orthopnea, wheezing, stridor, hemoptysis GASTROINTESTINAL: Absent: abdominal pain, abdominal distension, nausea, vomiting, diarrhea, constipation, melena, hematochezia GENITOURINARY: Absent: dysuria, frequency, urgency, hesitancy, hematuria, flank pain, genital pain MUSCULOSKELETAL: Absent: myalgia, arthralgia, joint swelling, back pain, neck pain SKIN: Absent: rash, itching, pallor HEMATOLOGIC/IMMUNOLOGIC: Absent: easy bleeding, easy bruising, lymphadenopathy, frequent infections ENDOCRINE: Absent: unexplained weight gain, unexplained weight loss, heat intolerance, cold intolerance NEUROLOGIC: Absent: headache, focal weakness or paresthesias, dizziness, unsteady gait, seizure, mental status changes, bladder or bowel incontinence PSYCHIATRIC: Absent: anxiety, depression, suicidal or homicidal ideation, hallucinations. PHYSICAL EXAMINATION Vital Signs - 24 hr 07/31/18 07/31/18 12:42 13:41 Temperature 97.9 F Pulse Rate 119 H Respiratory 28 H Rate Blood Pressure 109/74 O2 Sat by Pulse 90 L 87 L Oximetry (%) GENERAL: Awake, alert, and fully oriented, in no acute distress.with poor hygiene HEAD: Normal with no signs of trauma. EYES: Pupils equal, round and reactive to light, extraocular movements intact, ENT: Dry mucous membranes. NECK: Normal range of motion, LUNGS:diffuse exp wheezing HEART: Regular rate and rhythm, normal S1 and S2 without murmur, rub or gallop. ABDOMEN: Soft, nontender, not distended, normoactive bowel sounds, LOWER EXTREMITIES: 2+ pulses, warm, well-perfused. No calf tenderness. No peripheral edema. NEUROLOGICAL: Cranial nerves II-XII intact. Normal speech. Normal gait. Laboratory Results - last 24 hr 07/31/18 07/31/18 07/31/18 13:20 13:20 13:38 WBC RBC Hgb Hct MCV MCH MCHC RDW Plt Count MPV Absolute Neuts (auto) Neutrophils % Lymphocytes % Monocytes % Eosinophils % Basophils % Nucleated RBC % VBG pH POC VBG pCO2 POC VBG pO2 Mixed VBG HCO3 Sodium 136 Potassium 4.4 Chloride 101 Carbon Dioxide 26 Anion Gap 9 BUN 14 Creatinine 0.9 Creat Clearance w eGFR > 60 Random Glucose 142 H Lactic Acid 2.1 H Calcium 10.2 H Total Bilirubin 0.6 AST 42 H ALT 47 Alkaline Phosphatase 121 H Creatine Kinase Creatine Kinase Index CK-MB (CK-2) Troponin I B-Natriuretic Peptide Total Protein 7.8 Albumin 4.0 Influenza A (Rapid) Negative Influenza B (Rapid) Negative 07/31/18 07/31/18 07/31/18 13:41 13:41 13:41 WBC 7.0 RBC 4.43 Hgb 14.7 Hct 43.0 MCV 97.0 H MCH 33.3 MCHC 34.3 RDW 13.4 Plt Count 240 D MPV 8.8 D Absolute Neuts (auto) 5.9 Neutrophils % 84.6 H D Lymphocytes % 10.6 D Monocytes % 4.6 Eosinophils % 0.1 D Basophils % 0.1 Nucleated RBC % 0 VBG pH 7.34 POC VBG pCO2 50.3 POC VBG pO2 49.0 H Mixed VBG HCO3 26.7 H Sodium Potassium Chloride Carbon Dioxide Anion Gap BUN Creatinine Creat Clearance w eGFR Random Glucose Lactic Acid Calcium Total Bilirubin AST ALT Alkaline Phosphatase Creatine Kinase 248 Creatine Kinase Index 3.9 CK-MB (CK-2) 9.9 H Troponin I < 0.02 B-Natriuretic Peptide 85.2 Total Protein Albumin Influenza A (Rapid) Influenza B (Rapid) CBC, BMP 07/31/18 13:41 07/31/18 13:20 ASSESSMENT/PLAN: 68 year old male with PMH HIV (compliant with medication, unknown last CD4), COPD, lung CA (radiation), hydrocele,was sent to ED by his primary due to SOB was found to have acute asthma exacerbation,. # Acute respiratory Failure due to copd exacerbation * DUO neb * Albuterol * MG sulfate * Prednison 40 mg IV q 8hr * Pulse oxy * o2 to keep o2 sat > 89-92% * Abx ceftriaxone /azithro * incentive spirometry when improved * sputum cx , RAPID , Flue swap # elevated Lactc acid due to hypoxia * repeat lab after iv fluids # HIV * ID on board * Continue home meds # Lung CA S/P radiation with possible L5 mets * f/u out pt with Dr montgomery # Thrush X1 month * fluconazole 100 mg IV BP Daily for 7 days # Hydrocele * conservative management * f/u out pt # FEN * F: NS bolus [id number] in ED , 1L Bolus , 100 CC NS maintenance * E: monitor * N: NPO for now , low sodium diabetic diet when stable # Proph * DVTS: SCDs B/L , hip SQ TID # dispo * admit to med surg # Code * Full code Visit type - Emergency Visit Emergency Visit: Yes ED Registration Date: 07/31/18 Care time: The patient presented to the Emergency Department on the above date and was hospitalized for further evaluation of their emergent condition. - New Patient This patient is new to me today: Yes Date on this admission: 07/31/18 - Critical Care Critical Care patient: No
[2018-07-31] MEDS ORDERED: CEFTRIAXONE 1 GM/50 ML BAG ONE (16:30)
[2018-07-31] MEDS ORDERED: ALBUTEROL SO4 0.083% IH SOL 2.5 MG/3 ML VIAL.NEB. NEB PRN (17:13)
[2018-07-31] MEDS ORDERED: SODIUM CHLORIDE 1,000 ML IV STA (17:41)
[2018-07-31] MEDS ORDERED: SODIUM CHLORIDE 1,000 ML IV SCH (17:45)
[2018-07-31] MEDS ORDERED: PATIENT'S OWN MEDICATION (NON-FORMULARY) (Ipratropium/Albuterol Sulfate [Combivent Respima IH SCH (18:00)
--- NOTE | 2018-07-31 18:29 | PN ---
Teaching Attending Note Name of Resident: Max Alfredo ATTENDING PHYSICIAN STATEMENT I saw and evaluated the patient. I reviewed the resident's note and discussed the case with the resident. I agree with the resident's findings and plan as documented. SUBJECTIVE:68yo M with PMH HIV on HARRT, lung ca s/p RTx, COPD on home O2 ( however is not compliant),hydrocele with drainage done today in urologist presented to the ER [facility] SOB and cough. cough is productive of yellow sputum. assoc with subjective fever and chills and rhinorrhea. states he is supposed to be on home O2 but ran out of the tank for about a month and has not been using it. denies CP, N/V/C/D, blurred vision. pt also reports he was treated for oral thrush a month ago with nystatin. has no odynophagia or dysphagia OBJECTIVE: Last Vital Signs Temp Pulse Resp BP Pulse Ox 97.9 F 119 H 28 H 109/74 87 L 07/31/18 12:42 07/31/18 12:42 07/31/18 12:42 07/31/18 12:42 07/31/18 13:41 General NAD HEENT plaques on tongue. no throat erythema. no sinus tenderness CV S1 S2 RRR no murmur/rub/gallop Lungs tight lungs,. poor inspiratory effort. no wheezing Abdomen soft NT/ND extremities no pedal edema ASSESSMENT AND PLAN: 68yo M with PMH HIV on HARRT, lung ca s/p RTx, COPD on home O2 (however is not compliant),hydrocele with drainage done today in urologist presented to the ER wt SOB 1. Acute COPD exacerbation-medical admission. start on medrol 40mg Q8H, ceftriaxone, Azithromycin. nebs RTC and prn. supplemental oxygen spO2 >90%. cont home inhalers 2. Lactic acidosis- due to hypoxia. will bolus 1L NS. and repeat. 3. HIV on HARRT- cont therapy 4. Lung ca- outpatient follow up 5. Oral thrush- completed nystatin x1 month and has not responded. start fluconazole x7D 6. DVT ppx- hep sq
[2018-07-31] MEDS ORDERED: AZITHROMYCIN 500 MG TABLET ONE (18:57)
[2018-07-31] MEDS ORDERED: methylPREDNISolone NA SUCC 40 MG/1 ML VIAL ONE (18:57)
[2018-07-31] MEDS: AZITHROMYCIN 500 MG TABLET PO SCH ×2 (19:01→19:04)
[2018-07-31] MEDS: methylPREDNISolone NA SUCC 40 MG/1 ML VIAL IVPUSH SCH (19:01)
[2018-07-31] MEDS: ALBUTEROL SO4 2.5/IPRATROPIUM 0.5 INH SOL 3 ML VIAL.NEB. NEB SCH ×2 (20:11→21:15)
[2018-07-31] MEDS: NYSTATIN 500,000 UNITS/5 ML SUSPENSION PO SCH (20:11)
[2018-07-31] MEDS ORDERED: PATIENT'S OWN MEDICATION (NON-FORMULARY) (Fluticasone/Salmeterol [Advair Hfa 230-21 Mcg In PO SCH (22:00)
[2018-07-31] MEDS: BUDESONIDE/FORMETEROL FUMARATE 80/4.5 mcg INHALER IH SCH (22:44)
[2018-07-31] MEDS: ATORVASTATIN CA 10 MG TABLET (FP) PO SCH (22:45)
[2018-07-31] MEDS: HEPARIN NA (PORCINE) 5,000 UNITS/ML 1ML VIAL SQ SCH (22:46)
[2018-08-01] MEDS: NYSTATIN 500,000 UNITS/5 ML SUSPENSION PO SCH ×2 (00:05→06:20)
[2018-08-01] MEDS: ALBUTEROL SO4 2.5/IPRATROPIUM 0.5 INH SOL 3 ML VIAL.NEB. NEB SCH ×5 (01:15→20:30)
[2018-08-01] MEDS: methylPREDNISolone NA SUCC 40 MG/1 ML VIAL IVPUSH SCH ×3 (01:35→17:26)
[2018-08-01] MEDS: HEPARIN NA (PORCINE) 5,000 UNITS/ML 1ML VIAL SQ SCH ×3 (06:18→21:48)
--- NOTE | 2018-08-01 08:02 | PN ---
Progress Note (short form) - Note Progress Note: states breathing is slightly improved. feels better with rescue inhaler. has not gotten out of bed since arrival. denies CP, SOB, fever, chills, N/V/C/D Current Medications Generic Name Dose Route Start Last Admin Trade Name Freq PRN Reason Stop Dose Admin Albuterol Sulfate 1 amp 07/31/18 17:13 08/01/18 01:36 Ventolin 0.083% Nebulizer Soln - NEB 1 amp Q4H PRN Administration SHORT OF BREATH/WHEEZING Albuterol/Ipratropium 1 amp 07/31/18 18:00 08/01/18 06:52 Duoneb - NEB 1 amp Q4HPO JAY JAY Administration Atorvastatin Calcium 10 mg 07/31/18 22:00 07/31/18 22:45 Lipitor - PO 10 mg HS JAY JAY Administration Azithromycin 500 mg 07/31/18 19:00 07/31/18 19:04 Azithromycin PO 08/02/18 10:01 500 mg DAILY JAY JAY Administration Budesonide/Formoterol Fumarate 2 puff 07/31/18 22:00 07/31/18 22:44 Symbicort 80/4.5mcg - IH 2 puff BID JAY JAY Administration Heparin Sodium (Porcine) 5,000 unit 07/31/18 22:00 08/01/18 06:18 Heparin - SQ 5,000 unit TID JAY JAY Administration Sodium Chloride 1,000 mls @ 83 mls/hr 07/31/18 17:45 07/31/18 20:11 Normal Saline - IV 83 mls/hr ASDIR JAY JAY Administration Ceftriaxone Sodium 1 gm/ 50 mls @ 100 mls/hr 08/01/18 10:00 Dextrose IVPB DAILY JAY JAY Protocol Fluconazole 50 mls @ 50 mls/hr 08/01/18 10:00 Diflucan 100 Mg/D5w Premixed Ivpb - IVPB DAILY JAY JAY Methylprednisolone Sodium Succinate 40 mg 07/31/18 18:00 08/01/18 01:35 Solu-Medrol - IVPUSH 40 mg Q8H-IV JAY JAY Administration Non-Formulary Medication 1 each 08/01/18 10:00 Elviteg/Cob/Emtri/Tenof Alafen [Genvoya Tablet] PO DAILY JAY JAY Last Vital Signs Temp Pulse Resp BP Pulse Ox 97.7 F 77 20 112/59 L 96 08/01/18 06:00 08/01/18 06:00 08/01/18 06:00 08/01/18 06:00 07/31/18 21:00 General NAD HEENT plaques on tongue. no throat erythema. no sinus tenderness CV S1 S2 RRR no murmur/rub/gallop Lungs tight lungs, poor inspiratory effort. no wheezing Abdomen soft NT/ND extremities no pedal edema CBCD WBC 7.0 K/mm3 (4.0-10.0) 07/31/18 13:41 RBC 4.43 M/mm3 (4.00-5.60) 07/31/18 13:41 Hgb 14.7 GM/dL (11.7-16.9) 07/31/18 13:41 Hct 43.0 % (35.4-49) 07/31/18 13:41 MCV 97.0 fl (80-96) H 07/31/18 13:41 MCHC 34.3 g/dl (32.0-35.9) 07/31/18 13:41 RDW 13.4 % (11.9-15.9) 07/31/18 13:41 Plt Count 240 K/MM3 (134-434) D 07/31/18 13:41 MPV 8.8 fl (7.5-11.1) D 07/31/18 13:41 CMP Sodium 142 mmol/L (136-145) 08/01/18 07:00 Potassium 4.3 mmol/L (3.5-5.1) 08/01/18 07:00 Chloride 109 mmol/L (98-107) H 08/01/18 07:00 Carbon Dioxide 26 mmol/L (21-32) 08/01/18 07:00 Anion Gap 7 MMOL/L (8-16) L 08/01/18 07:00 BUN 11 mg/dL (7-18) 08/01/18 07:00 Creatinine 0.8 mg/dL (0.55-1.3) 08/01/18 07:00 Creat Clearance w eGFR > 60 (>60) 08/01/18 07:00 Calcium 8.5 mg/dL (8.5-10.1) 08/01/18 07:00 Total Bilirubin 0.5 mg/dL (0.2-1) 08/01/18 07:00 AST 32 U/L (15-37) 08/01/18 07:00 ALT 35 U/L (13-61) 08/01/18 07:00 Alkaline Phosphatase 94 U/L (45-117) 08/01/18 07:00 Total Protein 6.1 g/dl (6.4-8.2) L 08/01/18 07:00 Albumin 3.1 g/dl (3.4-5.0) L 08/01/18 07:00 ASSESSMENT AND PLAN: 68yo M with PMH HIV on HARRT, lung ca s/p RTx, COPD on home O2 (however is not compliant),hydrocele with drainage done today in urologist presented to the ER wtih SOB 1. Acute COPD exacerbation-only mild improvement since yesterday. will keep same dosing of steroids. cont medrol 40mg Q8H, ceftriaxone and azithro day 2. nebs and inhalers. supplemental oxygen spO2 >90%. 2. Lactic acidosis- due to hypoxia. will bolus 1L NS. resolved. d/c IVF 3. HIV on HARRT- cont therapy 4. Lung ca- outpatient follow up 5. Oral thrush- completed nystatin x1 month and has not responded. on fluconazole day 09/07 6. DVT ppx- hep sq Visit type - Emergency Visit Emergency Visit: Yes ED Registration Date: 07/31/18 Care time: The patient presented to the Emergency Department on the above date and was hospitalized for further evaluation of their emergent condition. - New Patient This patient is new to me today: No - Critical Care Critical Care patient: No - Discharge Referral Referred to [facility] No
[2018-08-01 08:50] LABS: ALBUMIN 3.1 g/dl (3.4-5.0); ALK PHOS 94 U/L (45-117); ANION GAP 7 MMOL/L (8-16); BILIRUBIN,TOTAL 0.5 mg/dL (0.2-1); BLOOD UREA NITROGEN 11 mg/dL (7-18); CALCIUM 8.5 mg/dL (8.5-10.1); CHLORIDE 109 mmol/L (98-107); CO2 26 mmol/L (21-32); CREATININE 0.8 mg/dL (0.55-1.3); GLUCOSE,RANDOM 132 mg/dL (74-106); MAGNESIUM 2.4 mg/dL (1.8-2.4); PHOSPHOROUS 3.1 mg/dL (2.5-4.9); POTASSIUM 4.3 mmol/L (3.5-5.1); SGOT/AST 32 U/L (15-37); SGPT/ALT 35 U/L (13-61); SODIUM 142 mmol/L (136-145); TOT PROT 6.1 g/dl (6.4-8.2)
[2018-08-01 09:11] LABS: INR 0.99 (0.83-1.09); PROTHROMBIN TIME (PATIENT) 11.7 SEC (9.7-13.0)
[2018-08-01 09:14] LABS: ACTIVATED PTT 31.1 SECONDS (25.2-36.5)
[2018-08-01] MEDS ORDERED: PT OWN MED DRAWER 7, Y5N ONE ×2 (10:05→10:10)
[2018-08-01] MEDS ORDERED: cefTRIAXone SODIUM 1 GM VIAL ONE (10:06)
[2018-08-01] MEDS ORDERED: DEXTROSE 5%-WATER - 50 ML IVPB ONE (10:06)
[2018-08-01 10:08] LABS: BASO % 0.1 % (0-2.0); HEMATOCRIT 39.2 % (35.4-49); HEMOGLOBIN 12.7 GM/dL (11.7-16.9); LYMPH % 13.9 % (8-40); MCH 32.1 pg (25.7-33.7); MCHC 32.3 g/dl (32.0-35.9); MEAN CELL VOLUME 99.3 fl (80-96); MEAN PLT VOLUME 8.8 fl (7.5-11.1); MONO % 3.2 % (3.8-10.2); NEUT % 82.8 % (42.8-82.8); PLATELET COUNT 218 K/MM3 (134-434); RBC 3.95 M/mm3 (4.00-5.60); RDW 13.1 % (11.9-15.9); WHITE BLOOD COUNT 4.5 K/mm3 (4.0-10.0)
[2018-08-01] MEDS: CEFTRIAXONE 1 GM in DEXTROSE 5%-WATER - 50 ML IVPB SCH (10:08)
[2018-08-01] MEDS: BUDESONIDE/FORMETEROL FUMARATE 80/4.5 mcg INHALER IH SCH ×2 (10:08→21:48)
[2018-08-01] MEDS ORDERED: AZITHROMYCIN 250 MG TABLET PO SCH (10:13)
[2018-08-01] MEDS: AZITHROMYCIN 500 MG TABLET PO SCH (10:17)
[2018-08-01] MEDS: FLUCONAZOLE 100 MG/D5W 50 ML IVPB SCH (12:31)
--- NOTE | 2018-08-01 17:19 | EKG ---
Test Reason : Blood Pressure : / mmHG Vent. Rate : 100 BPM Atrial Rate : 100 BPM P-R Int : 154 ms QRS Dur : 066 ms QT Int : 316 ms P-R-T Axes : 090 073 068 degrees QTc Int : 407 ms POOR DATA QUALITY, INTERPRETATION MAY BE ADVERSELY AFFECTED NORMAL SINUS RHYTHM SEPTAL INFARCT , AGE UNDETERMINED ABNORMAL ECG WHEN COMPARED WITH ECG OF 03-JUL-2018 10:09, SEPTAL INFARCT IS NOW PRESENT ST NOW DEPRESSED IN ANTERIOR LEADS Confirmed by MD EMILEE, BRUNO ([id number]) on 08/01/2018 5:18:55 PM Referred By: Confirmed By:BRUNO HEBERT MD
[2018-08-01] MEDS: ATORVASTATIN CA 10 MG TABLET (FP) PO SCH (21:48)
[2018-08-02] MEDS: ALBUTEROL SO4 2.5/IPRATROPIUM 0.5 INH SOL 3 ML VIAL.NEB. NEB SCH ×6 (00:37→20:40)
[2018-08-02] MEDS: methylPREDNISolone NA SUCC 40 MG/1 ML VIAL IVPUSH SCH ×3 (01:28→22:58)
[2018-08-02] MEDS: HEPARIN NA (PORCINE) 5,000 UNITS/ML 1ML VIAL SQ SCH ×3 (07:30→22:58)
[2018-08-02] MEDS ORDERED: PT OWN MED DRAWER 7, Y5N ONE (10:13)
[2018-08-02] MEDS ORDERED: cefTRIAXone SODIUM 1 GM VIAL ONE (10:13)
[2018-08-02] MEDS ORDERED: DEXTROSE 5%-WATER - 50 ML IVPB ONE (10:13)
[2018-08-02] MEDS: BUDESONIDE/FORMETEROL FUMARATE 80/4.5 mcg INHALER IH SCH ×2 (10:27→22:58)
[2018-08-02] MEDS: CEFTRIAXONE 1 GM in DEXTROSE 5%-WATER - 50 ML IVPB SCH (10:28)
[2018-08-02] MEDS ORDERED: ALBUTEROL SO4 0.083% IH SOL 2.5 MG/3 ML VIAL.NEB. NEB PRN (10:43)
[2018-08-02] MEDS: FLUCONAZOLE 100 MG/D5W 50 ML IVPB SCH (11:33)
--- NOTE | 2018-08-02 11:34 | PN ---
Teaching Attending Note Name of Resident: Wil Mckenzie ATTENDING PHYSICIAN STATEMENT I saw and evaluated the patient. I reviewed the resident's note and discussed the case with the resident. I agree with the resident's findings and plan as documented. SUBJECTIVE:breathing is improved but still cant walk too far. states cough is no longer productive. denies CP, SOB, fever, chills, N/V/C/D OBJECTIVE: Last Vital Signs Temp Pulse Resp BP Pulse Ox 97.5 F L 95 H 20 128/80 98 08/02/18 06:00 08/02/18 06:00 08/02/18 06:00 08/02/18 06:00 08/01/18 21:00 General NAD Lungs CTA B/L no wheezing. improved inspiratory effort ASSESSMENT AND PLAN: 68yo M with PMH HIV on HARRT, lung ca s/p RTx, COPD on home O2 (however is not compliant),hydrocele with drainage done today in urologist presented to the ER wtih SOB 1. Acute COPD exacerbation-improved inspiratory effort. decrease medrol to BID dosing. ceftriaxone and azithro day 3. nebs and inhalers. supplemental oxygen spO2 >90%. check pre and post in the AM. is supposed to be on home O2 however unclear if pt has tank at home 2. Lactic acidosis- due to hypoxia. resolved 3. HIV on HARRT- cont therapy 4. Lung ca- outpatient follow up 5. Oral thrush- completed nystatin x1 month and has not responded. on fluconazole day 10/08 6. DVT ppx- hep sq
--- NOTE | 2018-08-02 12:35 | PN ---
Physical Exam: SUBJECTIVE: Patient seen and examined at bedside. No acute events. Pt has no complaints. Somewhat difficult historian. Circumferential OBJECTIVE: Vital Signs Period Temp Pulse Resp BP Sys/Pollock Pulse Ox Last 24 Hr 97.5 F-98.1 F 82-95 18-20 128-142/77-80 98-98 Gen: tachypnic. Not speaking in full sentences, however, very talkative. Pt does not appear to be uncomfortable with his breathing HEENT: NCAT, EOMI Cardio: rrr, norm s1s2, no mrg Pulm: poor inspiratory effort, limited exam. poor air entry b/l Abd: soft, nondistended, nontender. Scrotum with mild residual swelling. Nontender Ext: no edema Laboratory Results - last 24 hr 08/01/18 08/02/18 23:35 07:32 POC Glucometer 174 116 Active Medications Generic Name Dose Route Start Last Admin Trade Name Freq PRN Reason Stop Dose Admin Albuterol Sulfate 1 amp 08/02/18 10:43 Ventolin 0.083% Nebulizer Soln - NEB Q6H PRN SHORT OF BREATH/WHEEZING Albuterol/Ipratropium 1 amp 08/01/18 08:49 08/02/18 11:37 Duoneb - NEB 1 amp RQ4H JAY JAY Administration Atorvastatin Calcium 10 mg 07/31/18 22:00 08/01/18 21:48 Lipitor - PO 10 mg HS JAY JAY Administration Budesonide/Formoterol Fumarate 2 puff 07/31/18 22:00 08/02/18 10:27 Symbicort 80/4.5mcg - IH 2 puff BID JAY JAY Administration Heparin Sodium (Porcine) 5,000 unit 07/31/18 22:00 08/02/18 07:30 Heparin - SQ 5,000 unit TID JAY JAY Administration Ceftriaxone Sodium 1 gm/ 50 mls @ 100 mls/hr 08/01/18 10:00 08/02/18 10:28 Dextrose IVPB 100 mls/hr DAILY JAY JAY Administration Protocol Fluconazole 50 mls @ 50 mls/hr 08/01/18 10:00 08/02/18 11:33 Diflucan 100 Mg/D5w Premixed Ivpb - IVPB 50 mls/hr DAILY JAY JAY Administration Methylprednisolone Sodium Succinate 40 mg 08/02/18 22:00 Solu-Medrol - IVPUSH BID JAY JAY (Non-Formulary) ( 1 each 08/01/18 14:00 08/02/18 10:28 Elviteg/Cob/Emtri/ PO 1 each Tenof Alafen [ DAILY JAY JAY Administration Genvoya Tablet] ASSESSMENT/PLAN: Pt is a 68 y/o M with PMH COPD, lung CA, HIV (on HARRT) who recently had a hydrocele drained by urologist and was subsequently sent to ED with SOB. #COPD exacerbation -improving -good O2 sat on 2L -duonebs q6h -solumedrol bid -O2 -Azith/Roceph day 3 -Pre and post #HIV -c/w home HARRT #Lung CA -f/u out pt #oral thrush -failed nystatin -fluconazole day 2 of 7 #lactic acidosis -? work of breathing -resolved #FEN -not on fluids -lytes wnl -reg diet #PPx -Hep SubQ #Dispo -Med surg Wil Mckenzie MD PGY-2 IM Visit type - Emergency Visit Emergency Visit: No - New Patient This patient is new to me today: No - Critical Care Critical Care patient: No
[2018-08-02] MEDS: ATORVASTATIN CA 10 MG TABLET (FP) PO SCH (22:58)
[2018-08-03] MEDS ORDERED: PT OWN MED DRAWER 7, Y5N ONE ×2 (00:07→12:49)
[2018-08-03] MEDS: HEPARIN NA (PORCINE) 5,000 UNITS/ML 1ML VIAL SQ SCH ×3 (06:13→22:20)
[2018-08-03] MEDS: ALBUTEROL SO4 2.5/IPRATROPIUM 0.5 INH SOL 3 ML VIAL.NEB. NEB SCH ×5 (07:26→23:37)
[2018-08-03] MEDS ORDERED: cefTRIAXone SODIUM 1 GM VIAL ONE (09:45)
[2018-08-03] MEDS ORDERED: DEXTROSE 5%-WATER - 50 ML IVPB ONE (09:45)
[2018-08-03] MEDS: CEFTRIAXONE 1 GM in DEXTROSE 5%-WATER - 50 ML IVPB SCH (09:58)
[2018-08-03] MEDS: BUDESONIDE/FORMETEROL FUMARATE 80/4.5 mcg INHALER IH SCH ×2 (09:59→22:20)
[2018-08-03] MEDS: methylPREDNISolone NA SUCC 40 MG/1 ML VIAL IVPUSH SCH ×3 (09:59→19:27)
[2018-08-03] MEDS: FLUCONAZOLE 100 MG/D5W 50 ML IVPB SCH (10:17)
--- NOTE | 2018-08-03 12:18 | PN ---
Teaching Attending Note Name of Resident: Wil Purcell ATTENDING PHYSICIAN STATEMENT I saw and evaluated the patient. I reviewed the resident's note and discussed the case with the resident. I agree with the resident's findings and plan as documented. SUBJECTIVE:c/o dyspnea after walking several feet to the bathroom. pt is found tripod in the room 86% on 2L NC OBJECTIVE: Last Vital Signs Temp Pulse Resp BP Pulse Ox 98.4 F 105 H 18 137/85 98 08/03/18 10:00 08/03/18 10:00 08/03/18 10:00 08/03/18 10:00 08/02/18 21:00 General tachypnic, tripoding, unable to speak in complete sentences Lungs diffuse wheezing ASSESSMENT AND PLAN: 68yo M with PMH HIV on HARRT, lung ca s/p RTx, COPD on home O2 (however is not compliant),hydrocele with drainage done today in urologist presented to the ER wtih SOB 1. Acute Hypoxic respiratory failure- found to tachpnic and hypoxic after exertion. states he just received a nebulizer treatment less than an hour ago. stat solumedrol 80mg IVP, placed on non-rebreather with saturation improved to 99%. will obtain CT chest when more stable. will need to consider PE as well due to acute hypoxic episode but believe this was more from exertion. will re- assess later. 1. Acute COPD exacerbation- will increase medrol back to Q8H dosing. On ceftriaxone and azithro day 4. nebs and inhalers. supplemental oxygen spO2 >90% . refused pre and post yesterday. may need to repeat prior to d/c if pt does not have O2 tank at home. unclear if he has one currently. 2. Lactic acidosis- due to hypoxia. resolved 3. HIV on HARRT- cont therapy 4. Lung ca- outpatient follow up 5. Oral thrush- completed nystatin x1 month and has not responded. on fluconazole day 11/05 6. DVT ppx- hep sq
[2018-08-03] MEDS: ELVITEG/COB/EMTRI/TENOF (GENVOYA) TABLET (NF) PO SCH (13:00)
--- NOTE | 2018-08-03 14:53 | PN ---
Physical Exam: SUBJECTIVE: Patient seen and examined at bedside in am. C/o shortness of breath while receiving nebulizer treatment. No acute events overnight. OBJECTIVE: Vital Signs Period Temp Pulse Resp BP Sys/Pollock Pulse Ox Last 24 Hr 97.9 F-98.4 F 98-107 18-22 137-154/85-97 98 GENERAL: AAOx3 HEAD: NC/AT EYES: EOMI ENT: Ears normal, nares patent, oropharynx clear without exudates, moist mucous membranes. NECK: Trachea midline, full range of motion, supple. LUNGS: Diffuse Expiratory wheezing HEART: Tachycardic No MRG S1S2 ABDOMEN: Soft, NDNT EXTREMITIES: 2+ pulses, warm, well-perfused, no edema. NEUROLOGICAL: Cranial nerves II through XII grossly intact. Normal speech, gait not observed. PSYCH: Normal mood, normal affect. SKIN: No rashes or lesions appreciated Laboratory Results - last 24 hr 08/02/18 08/03/18 08/03/18 17:42 05:44 12:24 POC Glucometer 132 119 163 Active Medications Generic Name Dose Route Start Last Admin Trade Name Freq PRN Reason Stop Dose Admin Albuterol Sulfate 1 amp 08/02/18 10:43 Ventolin 0.083% Nebulizer Soln - NEB Q6H PRN SHORT OF BREATH/WHEEZING Albuterol/Ipratropium 1 amp 08/01/18 08:49 08/03/18 11:33 Duoneb - NEB 1 amp RQ4H JAY JAY Administration Atorvastatin Calcium 10 mg 07/31/18 22:00 08/02/18 22:58 Lipitor - PO 10 mg HS JAY JAY Administration Budesonide/Formoterol Fumarate 2 puff 07/31/18 22:00 08/03/18 09:59 Symbicort 80/4.5mcg - IH 2 puff BID JAY JAY Administration Elvitegravir/Cobicis/Emtricit/Tenof 1 tab 08/03/18 10:54 08/03/18 13:00 Genvoya (Non-Formulary) PO 1 tab DAILY JAY JAY Administration Heparin Sodium (Porcine) 5,000 unit 07/31/18 22:00 08/03/18 06:13 Heparin - SQ 5,000 unit TID JAY JAY Administration Ceftriaxone Sodium 1 gm/ 50 mls @ 100 mls/hr 08/01/18 10:00 08/03/18 09:58 Dextrose IVPB 100 mls/hr DAILY JAY JAY Administration Protocol Fluconazole 50 mls @ 50 mls/hr 08/01/18 10:00 08/03/18 10:17 Diflucan 100 Mg/D5w Premixed Ivpb - IVPB 50 mls/hr DAILY JAY JAY Administration Methylprednisolone Sodium Succinate 40 mg 08/03/18 13:15 Solu-Medrol - IVPUSH Q8H-IV JAY JAY ASSESSMENT/PLAN: Pt is a 68 y/o M with PMH COPD, lung CA, HIV (on HARRT) who recently had a hydrocele drained by urologist and was subsequently sent to ED with SOB. #COPD exacerbation -NC 2L -Duonebs q6h -Solumedtrol 80 IVPUSH STAT in AM as pt in respiratory distress satting in mid 80's -Solumedrol 40 Q8H. Previously BID -O2 -Azith/Roceph day 4 -Pre and post refused by pt last night. Chest CT performed today--> Moderate centrilobular emphysema. 0.4 cm RU pulmonary nodule. Repeat CT in 2 mo follow up. #HIV -c/w home HARRT #Lung CA -f/u out pt #Yolette -fluconazole day 3 of 7 #FEN -not on fluids -lytes wnl -reg diet #PPx -Hep SubQ #Dispo -Med surg Visit type - Emergency Visit Emergency Visit: Yes ED Registration Date: 07/31/18 Care time: The patient presented to the Emergency Department on the above date and was hospitalized for further evaluation of their emergent condition. - New Patient This patient is new to me today: No - Critical Care Critical Care patient: No - Discharge Referral Referred to [facility] Med P.C.: No
[2018-08-03] MEDS: ATORVASTATIN CA 10 MG TABLET (FP) PO SCH (22:20)
[2018-08-04] MEDS: methylPREDNISolone NA SUCC 40 MG/1 ML VIAL IVPUSH SCH ×3 (01:23→18:20)
[2018-08-04] MEDS: ALBUTEROL SO4 2.5/IPRATROPIUM 0.5 INH SOL 3 ML VIAL.NEB. NEB SCH ×4 (05:50→20:05)
[2018-08-04] MEDS: HEPARIN NA (PORCINE) 5,000 UNITS/ML 1ML VIAL SQ SCH ×3 (06:23→21:37)
[2018-08-04 07:23] LABS: HEMATOCRIT 42.4 % (35.4-49); HEMOGLOBIN 13.6 GM/dL (11.7-16.9); MCH 31.5 pg (25.7-33.7); MEAN CELL VOLUME 98.5 fl (80-96); MEAN PLT VOLUME 8.3 fl (7.5-11.1); PLATELET COUNT 239 K/MM3 (134-434); RBC 4.31 M/mm3 (4.00-5.60); RDW 12.5 % (11.9-15.9); WHITE BLOOD COUNT 5.9 K/mm3 (4.0-10.0)
[2018-08-04 08:02] LABS: ANION GAP 9 MMOL/L (8-16); BLOOD UREA NITROGEN 18 mg/dL (7-18); CALCIUM 9.3 mg/dL (8.5-10.1); CHLORIDE 98 mmol/L (98-107); CO2 35 mmol/L (21-32); CREATININE 0.8 mg/dL (0.55-1.3); GLUCOSE,RANDOM 122 mg/dL (74-106); MAGNESIUM 2.5 mg/dL (1.8-2.4); PHOSPHOROUS 3.2 mg/dL (2.5-4.9); SODIUM 141 mmol/L (136-145)
[2018-08-04] MEDS ORDERED: DEXTROSE 5%-WATER - 50 ML IVPB ONE (08:49)
[2018-08-04] MEDS ORDERED: cefTRIAXone SODIUM 1 GM VIAL ONE (08:49)
[2018-08-04] MEDS ORDERED: PT OWN MED DRAWER 7, Y5N ONE ×2 (08:52→21:32)
[2018-08-04] MEDS: CEFTRIAXONE 1 GM in DEXTROSE 5%-WATER - 50 ML IVPB SCH (10:53)
[2018-08-04] MEDS: ELVITEG/COB/EMTRI/TENOF (GENVOYA) TABLET (NF) PO SCH (10:54)
[2018-08-04] MEDS: BUDESONIDE/FORMETEROL FUMARATE 80/4.5 mcg INHALER IH SCH ×2 (11:01→21:37)
[2018-08-04] MEDS: FLUCONAZOLE 100 MG/D5W 50 ML IVPB SCH (12:51)
--- NOTE | 2018-08-04 14:30 | PN ---
Progress Note (short form) - Note Progress Note: PULMONARY CONSULTATION DICTATED 08/04/18 IMP ACUTE ON CHRONIC HYPOXEMIC RESPIRATORY FAILURE COPD EXACERBATION H/O LUNG CA S/P RT RUL NODULE HIV PLAN IV STEROIDS INHALED BRONCHODILATORS O2 PFTS OUTPATIENT STRESS COMPLIANCE WITH HOME O2 DR GRAHAM Problem List - Problems (1) Acute and chronic respiratory failure with hypoxia Code(s): J96.21 - ACUTE AND CHRONIC RESPIRATORY FAILURE WITH HYPOXIA (2) HIV (human immunodeficiency virus infection) Code(s): Z21 - ASYMPTOMATIC HUMAN IMMUNODEFICIENCY VIRUS INFECTION STATUS (3) Lung cancer Code(s): C34.90 - MALIGNANT NEOPLASM OF UNSP PART OF UNSP BRONCHUS OR LUNG (4) HIV antibody positive Code(s): Z21 - ASYMPTOMATIC HUMAN IMMUNODEFICIENCY VIRUS INFECTION STATUS (5) COPD exacerbation Code(s): J44.1 - CHRONIC OBSTRUCTIVE PULMONARY DISEASE W (ACUTE) EXACERBATION
[2018-08-04] MEDS: TIOTROPIUM BROMIDE 2.5 MCG (SPIRIVA) RESPIMAT INHALER IH SCH (16:06)
--- NOTE | 2018-08-04 16:21 | PN ---
Physical Exam: SUBJECTIVE: Patient seen and examined at bedside. Endorses shortness of breath when walking to bathroom right next to bed. No acute events overnight. OBJECTIVE: Vital Signs Period Temp Pulse Resp BP Sys/Pollock Pulse Ox Last 24 Hr 97.7 F-98.2 F 66-91 18-20 131-146/76-99 100 GENERAL:NAD AAOx3 HEAD: NC/AT EYES: EOMI ENT: MMM NECK: Supple, no accessory muscle use for respiration LUNGS: Wheezing b/l HEART: Tachycardic No MRG S1S2 ABDOMEN: Soft, NDNT EXTREMITIES: 2+ pulses, warm, well-perfused, no edema. PSYCH: Normal mood, normal affect. SKIN: No rashes or lesions appreciated Laboratory Results - last 24 hr 08/03/18 08/03/18 08/04/18 17:03 23:24 06:15 WBC 5.9 RBC 4.31 Hgb 13.6 Hct 42.4 MCV 98.5 H MCH 31.5 MCHC 32.0 RDW 12.5 Plt Count 239 MPV 8.3 Sodium Potassium Chloride Carbon Dioxide Anion Gap BUN Creatinine Creat Clearance w eGFR POC Glucometer 133 194 Random Glucose Hemoglobin A1c % Calcium Phosphorus Magnesium 08/04/18 08/04/18 08/04/18 06:15 06:22 11:22 WBC RBC Hgb Hct MCV MCH MCHC RDW Plt Count MPV Sodium 141 Potassium 4.0 Chloride 98 Carbon Dioxide 35 H Anion Gap 9 BUN 18 Creatinine 0.8 Creat Clearance w eGFR > 60 POC Glucometer 119 192 Random Glucose 122 H Hemoglobin A1c % Calcium 9.3 Phosphorus 3.2 Magnesium 2.5 H 08/04/18 12:06 WBC RBC Hgb Hct MCV MCH MCHC RDW Plt Count MPV Sodium Potassium Chloride Carbon Dioxide Anion Gap BUN Creatinine Creat Clearance w eGFR POC Glucometer Random Glucose Hemoglobin A1c % 6.2 Calcium Phosphorus Magnesium Active Medications Generic Name Dose Route Start Last Admin Trade Name Freq PRN Reason Stop Dose Admin Albuterol Sulfate 1 amp 08/02/18 10:43 Ventolin 0.083% Nebulizer Soln - NEB Q6H PRN SHORT OF BREATH/WHEEZING Albuterol/Ipratropium 1 amp 08/01/18 08:49 08/04/18 11:20 Duoneb - NEB 1 amp RQ4H JAY JAY Administration Atorvastatin Calcium 10 mg 07/31/18 22:00 12/03/18 22:20 Lipitor - PO 10 mg HS JAY JAY Administration Budesonide/Formoterol Fumarate 2 puff 07/31/18 22:00 08/04/18 11:01 Symbicort 80/4.5mcg - IH 2 puff BID JAY JAY Administration Elvitegravir/Cobicis/Emtricit/Tenof 1 tab 08/03/18 10:54 08/04/18 10:54 Genvoya (Non-Formulary) PO 1 tab DAILY JAY JAY Administration Heparin Sodium (Porcine) 5,000 unit 07/31/18 22:00 08/04/18 14:01 Heparin - SQ 5,000 unit TID JAY JAY Administration Fluconazole 50 mls @ 50 mls/hr 08/01/18 10:00 08/04/18 12:51 Diflucan 100 Mg/D5w Premixed Ivpb - IVPB 50 mls/hr DAILY JAY JAY Administration Methylprednisolone Sodium Succinate 40 mg 08/03/18 13:15 08/04/18 10:52 Solu-Medrol - IVPUSH 40 mg Q8H-IV JAY JAY Administration Tiotropium [place] 2 puff 08/04/18 14:45 08/04/18 16:06 Spiriva Respimat IH 2 puff DAILY JAY JAY Administration ASSESSMENT/PLAN: Pt is a 68 y/o M with PMH COPD, lung CA, HIV (on HARRT) who recently had a hydrocele drained by urologist and was subsequently sent to ED with SOB. #COPD exacerbation -NC 2L -Duonebs q6h -Solumedrol 80 IVPUSH STAT yesterday 08/03/18. -Solumedrol 40 Q8H. -O2 3 l NC -Antibiotics discontinued Chest CT 08/03/18--> Moderate centrilobular emphysema. 0.4 cm RU pulmonary nodule. Repeat CT in [address] Vu on board. Spiriva started #HIV -c/w home HARRT #Lung CA -f/u out pt #Yolette -Fluconazole day 4 of 7 #FEN -Not on fluids -Monitor Electrolytes -Reg Diet #DVTPPx -Hep SubQ #Dispo -Med surg Visit type - Emergency Visit Emergency Visit: Yes ED Registration Date: 07/31/18 Care time: The patient presented to the Emergency Department on the above date and was hospitalized for further evaluation of their emergent condition. - New Patient This patient is new to me today: No - Critical Care Critical Care patient: No - Discharge Referral Referred to [facility] Med P.C.: No
--- NOTE | 2018-08-04 16:54 | PN ---
Teaching Attending Note Name of Resident: Wil Purcell ATTENDING PHYSICIAN STATEMENT I saw and evaluated the patient. I reviewed the resident's note and discussed the case with the resident. I agree with the resident's findings and plan as documented with exceptions below. SUBJECTIVE: Patient seen and examined, breathing with some improvement, ambulate to ambulate better today. OBJECTIVE: Vital Signs Period Temp Pulse Resp BP Sys/Pollock Pulse Ox Last 24 Hr 97.7 F-98.2 F 66-91 18-20 131-146/76-99 100-100 Intake & Output 08/01/18 08/02/18 08/03/18 08/04/18 23:59 23:59 23:59 23:59 Intake Total 2892 650 750 750 Balance 2892 650 750 750 Weight 123 lb 123 lb 2 oz 128 lb 124 lb 8 oz General: lying in bed in no acute distress, mild use of accessory muscles of respiration Chest: bibasilar fine rales, scattered wheezing, positive air entry Abdomen: Soft, NT, ND, positive bowel sounds Extremities: no edema Home Medications Medication Instructions Recorded Albuterol Sulfate Inhaler - 1 - 2 inh PO QID PRN #1 inhaler 06/25/17 [Ventolin Hfa Inhaler -] Albuterol Sulfate 0.5% [Ventolin 1 amp NEB Q6H PRN #1 box 02/06/18 0.5% Nebulizing Soln. -] Atorvastatin Ca [Lipitor] 10 mg PO HS #30 tablet 03/17/18 Elviteg/Cob/Emtri/Tenof Alafen 1 each PO DAILY #30 tablet 05/14/18 [Genvoya Tablet] Ipratropium/Albuterol Sulfate 1 inh IH QID #1 aer.w.adap 06/18/18 [Combivent Respimat 20-100 Mcg] Albuterol 2.5/Ipratropium 0.5 1 neb NEB Q8H PRN #30 vial 07/09/18 [Duoneb -] Fluticasone/Salmeterol [Advair Hfa 1 inh PO BID #1 inhaler 07/09/18 230-21 Mcg Inhaler] Active Medications Albuterol Sulfate (Ventolin 0.083% Nebulizer Soln -) 1 amp NEB Q6H PRN PRN Reason: SHORT OF BREATH/WHEEZING Albuterol/Ipratropium (Duoneb -) 1 amp NEB RQ4H [facility] Last Admin: 08/04/18 11:20 Dose: 1 amp Atorvastatin Calcium (Lipitor -) 10 mg PO HS [facility] Last Admin: 08/03/18 22:20 Dose: 10 mg Budesonide/Formoterol Fumarate (Symbicort 80/4.5mcg -) 2 puff IH BID [facility] Last Admin: 08/04/18 11:01 Dose: 2 puff Elvitegravir/Cobicis/Emtricit/Tenof (Genvoya (Non-Formulary)) 1 tab PO DAILY [facility] Last Admin: 08/04/18 10:54 Dose: 1 tab Heparin Sodium (Porcine) (Heparin -) 5,000 unit SQ TID [facility] Last Admin: 08/04/18 14:01 Dose: 5,000 unit Fluconazole (Diflucan 100 Mg/D5w Premixed Ivpb -) 50 mls @ 50 mls/hr IVPB DAILY [facility] Last Admin: 08/04/18 12:51 Dose: 50 mls/hr Methylprednisolone Sodium Succinate (Solu-Medrol -) 40 mg IVPUSH Q8H-IV [facility] Last Admin: 08/04/18 10:52 Dose: [address] (Spiriva Respimat) 2 puff IH DAILY [facility] Last Admin: 08/04/18 16:06 Dose: 2 puff Laboratory Results - last 24 hr 08/03/18 08/03/18 08/04/18 17:03 23:24 06:15 WBC 5.9 RBC 4.31 Hgb 13.6 Hct 42.4 MCV 98.5 H MCH 31.5 MCHC 32.0 RDW 12.5 Plt Count 239 MPV 8.3 Sodium Potassium Chloride Carbon Dioxide Anion Gap BUN Creatinine Creat Clearance w eGFR POC Glucometer 133 194 Random Glucose Hemoglobin A1c % Calcium Phosphorus Magnesium 08/04/18 08/04/18 08/04/18 06:15 06:22 11:22 WBC RBC Hgb Hct MCV MCH MCHC RDW Plt Count MPV Sodium 141 Potassium 4.0 Chloride 98 Carbon Dioxide 35 H Anion Gap 9 BUN 18 Creatinine 0.8 Creat Clearance w eGFR > 60 POC Glucometer 119 192 Random Glucose 122 H Hemoglobin A1c % Calcium 9.3 Phosphorus 3.2 Magnesium 2.5 H 08/04/18 12:06 WBC RBC Hgb Hct MCV MCH MCHC RDW Plt Count MPV Sodium Potassium Chloride Carbon Dioxide Anion Gap BUN Creatinine Creat Clearance w eGFR POC Glucometer Random Glucose Hemoglobin A1c % 6.2 Calcium Phosphorus Magnesium Microbiology 07/31/18 13:20 Blood - Peripheral Venous Blood Culture - Preliminary NO GROWTH OBTAINED AFTER 96 HOURS, INCUBATION TO CONTINUE FOR 1 DAYS. 07/31/18 13:30 Blood - Peripheral Venous Blood Culture - Preliminary NO GROWTH OBTAINED AFTER 96 HOURS, INCUBATION TO CONTINUE FOR 1 DAYS. ASSESSMENT AND PLAN: 68yo M with PMH HIV on HARRT, lung ca s/p RTx, COPD on home O2 (however is not compliant),hydrocele with drainage done on the day of admission in urologist presented to the ER wtih SOB -Acute hypoxic respiratory failure -ACute COPD exacerbation -Lung Ca s/p radiation tx (Pulmonlogist Dr. Gurrola, Oncology Dr. Jerry) -Lactic acidosis, suspect from respiratory effort, resolved -HIV on HAART -Oral thrush, s/p nystatin x 1 month, now on diflucan Plan: slow improvement. Continue current dose of solumedrol, nebs standing and prn. CT chest noted. Pulmonary consult. Counseling on compliance with home oxygen. Continue HAART therapy. Fluconazole day 4/7. DVTPP heparin Dispo pending clinical improvement, anticipate in 2-3 days. Plan discussed with patient in detail, all questions answered.
[2018-08-04] MEDS: ATORVASTATIN CA 10 MG TABLET (FP) PO SCH (21:37)
[2018-08-05] MEDS: ALBUTEROL SO4 2.5/IPRATROPIUM 0.5 INH SOL 3 ML VIAL.NEB. NEB SCH ×6 (00:10→20:55)
[2018-08-05] MEDS: methylPREDNISolone NA SUCC 40 MG/1 ML VIAL IVPUSH SCH ×4 (01:14→22:52)
[2018-08-05] MEDS: HEPARIN NA (PORCINE) 5,000 UNITS/ML 1ML VIAL SQ SCH ×3 (05:55→21:23)
[2018-08-05 08:33] LABS: ANION GAP 5 MMOL/L (8-16); BLOOD UREA NITROGEN 17 mg/dL (7-18); CALCIUM 9.3 mg/dL (8.5-10.1); CHLORIDE 97 mmol/L (98-107); CO2 36 mmol/L (21-32); CREATININE 0.8 mg/dL (0.55-1.3); GLUCOSE,RANDOM 148 mg/dL (74-106); MAGNESIUM 2.6 mg/dL (1.8-2.4); PHOSPHOROUS 3.2 mg/dL (2.5-4.9); POTASSIUM 3.8 mmol/L (3.5-5.1); SODIUM 138 mmol/L (136-145)
[2018-08-05 08:52] LABS: HEMATOCRIT 40.1 % (35.4-49); HEMOGLOBIN 13.2 GM/dL (11.7-16.9); MCHC 32.8 g/dl (32.0-35.9); MEAN CELL VOLUME 97.4 fl (80-96); PLATELET COUNT 249 K/MM3 (134-434); RBC 4.12 M/mm3 (4.00-5.60); RDW 12.7 % (11.9-15.9); WHITE BLOOD COUNT 7.5 K/mm3 (4.0-10.0)
[2018-08-05] MEDS ORDERED: PT OWN MED DRAWER 7, Y5N ONE (09:06)
[2018-08-05] MEDS: ELVITEG/COB/EMTRI/TENOF (GENVOYA) TABLET (NF) PO SCH (09:17)
[2018-08-05] MEDS: TIOTROPIUM BROMIDE 2.5 MCG (SPIRIVA) RESPIMAT INHALER IH SCH (09:18)
[2018-08-05] MEDS: BUDESONIDE/FORMETEROL FUMARATE 80/4.5 mcg INHALER IH SCH ×2 (09:18→21:24)
[2018-08-05] MEDS: FLUCONAZOLE 100 MG/D5W 50 ML IVPB SCH (11:09)
[2018-08-05] MEDS: amLODIPine BESYLATE 5 MG TABLET (FP) PO SCH (11:20)
--- NOTE | 2018-08-05 12:28 | CONS ---
DATE OF CONSULTATION: 08/04/2018 PULMONARY CONSULTATION REFERRING PHYSICIAN: Radha Galo MD HISTORY OF PRESENT ILLNESS: The patient is a 68-year-old black male with a past medical history of HIV on antiretroviral therapy, COPD on home O2, a history of lung cancer, recently status post RT, and a hydrocele, admitted to [facility] with increasing shortness of breath and dyspnea on exertion. The patient was seen by a urologist on the day of admission. At that time, he was noted on physical exam to be in respiratory distress with a cough productive of yellow sputum. He went to [facility] ER for the above. The patient denies any fevers, chills, nausea, vomiting or diaphoresis. On admission, he was felt to be in moderate respiratory distress. He was started on inhaled bronchodilators and IV steroids and was transferred to the medical floor for further management. The patient is apparently on home O2 with questionable compliance. He has no history of occupational exposure to chemical fumes. Of note, the patient underwent a bone scan on June 10, 2018 showing increased uptake in the left iliac and proximal femoral shaft, possibly due to Paget's. A malignancy cannot be completely excluded. The patient is apparently to undergo a PET scan as an outpatient. The patient has a history of smoking but quit a few years ago. Again, he has no history of occupational exposure to chemical fumes. He denies any history of respiratory failure on ventilatory support. PAST MEDICAL HISTORY: Again, this includes HIV, advanced COPD on O2, lung cancer and a hydrocele. REVIEW OF SYSTEMS: No orthopnea, PND, positive shortness of breath, positive dyspnea on exertion. No chest pain, no palpitations, positive dry cough, no hemoptysis, no lower extremity edema. SOCIAL HISTORY: History of tobacco smoking, one pack per day for 40 years; he quit 2 years ago, history of ETOH in the past. He denies IV drug abuse. CURRENT MEDICATIONS: Symbicort 80/4.5, Solu-Medrol 40 q. 8 hours, Diflucan, heparin, Januvia, albuterol DuoNeb and Lipitor. PHYSICAL EXAMINATION: General: The patient is a thin black male, wide awake, alert, in no acute distress. Vital Signs: He is afebrile. Blood pressure is 134/76, respiratory rate 20, O2 saturation is 100% on 3 liters of oxygen. HEENT: Head is normocephalic, atraumatic. Neck: Supple. Heart: Regular. S1, S2. Chest: Diminished breath sounds bilaterally. Abdomen: Soft. Bowel sounds are positive. Extremities: No cyanosis or edema. LABORATORY: WBC is 5.9, hemoglobin 13.6, hematocrit 42.4, platelet count of 239,000. INR is 0.99. Venous blood gas pH is 7.34, PCO2 of 50, PO2 of 49, bicarb of 26, BUN 18, creatinine 0.8. A chest CT shows no pulmonary embolism. A chest x-ray shows no infiltrates or effusions. There is a 0.4 x 0.4 irregular, stable right upper lobe nodule. IMPRESSION: 1. [id number] hypoxemic respiratory failure secondary to decompensated COPD. 2. History of lung cancer status post radiation therapy. 3. Right upper lobe nodule. 4. HIV. PLAN: 1. Continue IV steroids and taper, inhaled bronchodilators, supplemental O2. 2. as an outpatient. 3. Followup PET scan as an outpatient to evaluate for possible bone metastases. 4. Stressed compliance with oxygen and home O2. DANE GRAHAM M.D. [id number]
--- NOTE | 2018-08-05 14:45 | PN ---
Progress Note (short form) - Note Progress Note: PULMONARY States breathing about the same. Still with cough and wheezing. Vital Signs Period Temp Pulse Resp BP Sys/Pollock Pulse Ox Last 24 Hr 97.9 F-98.6 F 77-90 18-20 131-173/78-99 98-98 Gen: mildly tachypneic with speaking Heart: RRR Lung: bilateral rhonchi, wheezes Abd: soft, nontender Ext: no edema CBC, BMP 08/05/18 06:15 08/05/18 06:15 Active Medications Albuterol Sulfate (Ventolin 0.083% Nebulizer Soln -) 1 amp NEB Q6H PRN PRN Reason: SHORT OF BREATH/WHEEZING Albuterol/Ipratropium (Duoneb -) 1 amp NEB RQID [facility] Amlodipine Besylate (Norvasc -) 5 mg PO DAILY [facility] Last Admin: 08/05/18 11:20 Dose: 5 mg Atorvastatin Calcium (Lipitor -) 10 mg PO HS [facility] Last Admin: 08/04/18 21:37 Dose: 10 mg Budesonide/Formoterol Fumarate (Symbicort 80/4.5mcg -) 2 puff IH BID [facility] Last Admin: 08/05/18 09:18 Dose: 2 puff Elvitegravir/Cobicis/Emtricit/Tenof (Genvoya (Non-Formulary)) 1 tab PO DAILY [facility] Last Admin: 08/05/18 09:17 Dose: 1 tab Heparin Sodium (Porcine) (Heparin -) 5,000 unit SQ TID [facility] Last Admin: 08/05/18 14:20 Dose: 5,000 unit Fluconazole (Diflucan 100 Mg/D5w Premixed Ivpb -) 50 mls @ 50 mls/hr IVPB DAILY [facility] Last Admin: 08/05/18 11:09 Dose: 50 mls/hr Methylprednisolone Sodium Succinate (Solu-Medrol -) 40 mg IVPUSH Q12H [facility] Last Admin: 08/05/18 11:15 Dose: Not Given Tiotropium [place] (Spiriva Respimat) 2 puff IH DAILY [facility] Last Admin: 08/05/18 09:18 Dose: 2 puff A/P Acute on Chronic Hypoxic Respiratory Failure Acute COPD Exacerbation h/o Lung Cancer HIV - continue medrol - inhaled bronchodilators - o2 to keep Spo2 >90% - DVT prophylaxis
--- NOTE | 2018-08-05 17:58 | PN ---
Teaching Attending Note Name of Resident: Wil Purcell ATTENDING PHYSICIAN STATEMENT I saw and evaluated the patient. I reviewed the resident's note and discussed the case with the resident. I agree with the resident's findings and plan as documented with exceptions below. SUBJECTIVE: Patient seen and examined, breathing with slow improvement. OBJECTIVE: Vital Signs Period Temp Pulse Resp BP Sys/Pollock Pulse Ox Last 24 Hr 97.9 F-98.6 F 77-107 18-20 139-162/75-89 87-98 Intake & Output 08/02/18 08/03/18 08/04/18 08/05/18 23:59 23:59 23:59 23:59 Intake Total 613 497 4202 320 Balance 055 849 0036 320 Weight 123 lb 2 oz 128 lb 124 lb 8 oz 130 lb 3.2 oz General: sitting in bed in no acute distress, no use of accessory muscles of respiration Chest; improved air entry, decreased rales today Abdomen:soft, NT, ND Extremities: no edema Active Medications Albuterol Sulfate (Ventolin 0.083% Nebulizer Soln -) 1 amp NEB Q6H PRN PRN Reason: SHORT OF BREATH/WHEEZING Albuterol/Ipratropium (Duoneb -) 1 amp NEB RQID [facility] Last Admin: 08/05/18 15:56 Dose: 1 amp Amlodipine Besylate (Norvasc -) 5 mg PO DAILY [facility] Last Admin: 08/05/18 11:20 Dose: 5 mg Atorvastatin Calcium (Lipitor -) 10 mg PO HS [facility] Last Admin: 08/04/18 21:37 Dose: 10 mg Budesonide/Formoterol Fumarate (Symbicort 80/4.5mcg -) 2 puff IH BID [facility] Last Admin: 08/05/18 09:18 Dose: 2 puff Elvitegravir/Cobicis/Emtricit/Tenof (Genvoya (Non-Formulary)) 1 tab PO DAILY [facility] Last Admin: 08/05/18 09:17 Dose: 1 tab Heparin Sodium (Porcine) (Heparin -) 5,000 unit SQ TID [facility] Last Admin: 08/05/18 14:20 Dose: 5,000 unit Fluconazole (Diflucan 100 Mg/D5w Premixed Ivpb -) 50 mls @ 50 mls/hr IVPB DAILY [facility] Last Admin: 12/05/18 11:09 Dose: 50 mls/hr Methylprednisolone Sodium Succinate (Solu-Medrol -) 40 mg IVPUSH Q12H [facility] Last Admin: 08/05/18 11:15 Dose: Not Given Laboratory Results - last 24 hr 08/05/18 08/05/18 08/05/18 01:19 05:34 06:15 WBC 7.5 RBC 4.12 Hgb 13.2 Hct 40.1 MCV 97.4 H MCH 32.0 MCHC 32.8 RDW 12.7 Plt Count 249 MPV 9.0 Sodium Potassium Chloride Carbon Dioxide Anion Gap BUN Creatinine Creat Clearance w eGFR POC Glucometer 145 175 Random Glucose Calcium Phosphorus Magnesium 08/05/18 08/05/18 06:15 12:15 WBC RBC Hgb Hct MCV MCH MCHC RDW Plt Count MPV Sodium 138 Potassium 3.8 Chloride 97 L Carbon Dioxide 36 H Anion Gap 5 L BUN 17 Creatinine 0.8 Creat Clearance w eGFR > 60 POC Glucometer 264 Random Glucose 148 H Calcium 9.3 Phosphorus 3.2 Magnesium 2.6 H Microbiology 07/31/18 13:20 Blood - Peripheral Venous Blood Culture - Final NO GROWTH AFTER 5 DAYS INCUBATION 07/31/18 13:30 Blood - Peripheral Venous Blood Culture - Final NO GROWTH AFTER 5 DAYS INCUBATION ASSESSMENT AND PLAN: 68yo M with PMH HIV on HARRT, lung ca s/p RTx, COPD on home O2 (however is not compliant),hydrocele with drainage done on the day of admission in urologist presented to the ER [facility] SOB -Acute hypoxic respiratory failure -ACute COPD exacerbation -Lung Ca s/p radiation tx (Pulmonlogist Dr. Gurrola, Oncology Dr. Jerry) -Lactic acidosis, suspect from respiratory effort, resolved -HIV on HAART -Oral thrush, s/p nystatin x 1 month, now on diflucan Plan: slow improvement.taper solumedrol q12h, nebs standing and prn. CT chest noted. Pulmonary consult noted. Counseling on compliance with home oxygen. Continue HAART therapy. Fluconazole day 01/05. DVTPP heparin Will need 3-4L oxygen on d/c Dispo d/c in 24 hours of po steroids with slow taper if continues to improve. Plan discussed with patient in detail, all questions answered.
--- NOTE | 2018-08-05 20:43 | PN ---
Physical Exam: SUBJECTIVE: Patient seen and examined at bedside. Endorses SOB this am. On 3L NC upon room entry. Hypertensive overnight. OBJECTIVE: Vital Signs Period Temp Pulse Resp BP Sys/Pollock Pulse Ox Last 24 Hr 98 F-98.6 F 85-107 18-20 139-162/75-89 87-98 GENERAL: Tachypneic HEAD: NC/AT EYES: EOMI ENT: MMM NECK: Supple, no accessory muscle use for respiration LUNGS: Wheezing remains b/l. HEART: RRR MRG S1S2 ABDOMEN: Soft, NDNT EXTREMITIES: No CCE PSYCH: Normal mood, normal affect. SKIN: No rashes or lesions appreciated Laboratory Results - last 24 hr 08/05/18 08/05/18 08/05/18 01:19 05:34 06:15 WBC 7.5 RBC 4.12 Hgb 13.2 Hct 40.1 MCV 97.4 H MCH 32.0 MCHC 32.8 RDW 12.7 Plt Count 249 MPV 9.0 Sodium Potassium Chloride Carbon Dioxide Anion Gap BUN Creatinine Creat Clearance w eGFR POC Glucometer 145 175 Random Glucose Calcium Phosphorus Magnesium 08/05/18 08/05/18 08/05/18 06:15 12:15 17:52 WBC RBC Hgb Hct MCV MCH MCHC RDW Plt Count MPV Sodium 138 Potassium 3.8 Chloride 97 L Carbon Dioxide 36 H Anion Gap 5 L BUN 17 Creatinine 0.8 Creat Clearance w eGFR > 60 POC Glucometer 264 212 Random Glucose 148 H Calcium 9.3 Phosphorus 3.2 Magnesium 2.6 H Active Medications Generic Name Dose Route Start Last Admin Trade Name Freq PRN Reason Stop Dose Admin Albuterol Sulfate 1 amp 08/02/18 10:43 Ventolin 0.083% Nebulizer Soln - NEB Q6H PRN SHORT OF BREATH/WHEEZING Albuterol/Ipratropium 1 amp 08/05/18 16:00 08/05/18 15:56 Duoneb - NEB 1 amp RQID [facility] Administration Amlodipine Besylate 5 mg 08/05/18 10:45 08/05/18 11:20 Norvasc - PO 5 mg DAILY [facility] Administration Atorvastatin Calcium 10 mg 07/31/18 22:00 08/04/18 21:37 Lipitor - PO 10 mg HS [facility]AY [facility]AY Administration Budesonide/Formoterol Fumarate 2 puff 07/31/18 22:00 08/05/18 09:18 Symbicort 80/4.5mcg - IH 2 puff BID JAY JAY Administration Elvitegravir/Cobicis/Emtricit/Tenof 1 tab 08/03/18 10:54 08/05/18 09:17 Genvoya (Non-Formulary) PO 1 tab DAILY [facility] Administration Heparin Sodium (Porcine) 5,000 unit 07/31/18 22:00 08/05/18 14:20 Heparin - SQ 5,000 unit TID [facility] Administration Fluconazole 50 mls @ 50 mls/hr 08/01/18 10:00 08/05/18 11:09 Diflucan 100 Mg/D5w Premixed Ivpb - IVPB 50 mls/hr DAILY [facility] Administration Methylprednisolone Sodium Succinate 40 mg 08/05/18 11:00 08/05/18 11:15 Solu-Medrol - IVPUSH Not Given Q12H [facility] ASSESSMENT/PLAN: Pt is a 68 y/o M with PMH COPD, lung CA, HIV (on HARRT) who recently had a hydrocele drained by urologist and was subsequently sent to ED with SOB. #COPD exacerbation -NC 3L -Duonebs q6h -Solumedrol 40 Q8H Tapered down to 40Q12 -O2 [address] 08/03/18--> Moderate centrilobular emphysema. 0.4 cm RU pulmonary nodule. Repeat CT in 2 mo follow up. Pulmonary on board #HIV -Genvoya #HTN Norvasc 5 mg po aily #Lung CA -Has appointment with Dr Jerry tomorrow 08/06/18 #Yolette -Fluconazole day 5 of 7 #FEN -Not on fluids -Monitor Electrolytes -Reg Diet #DVTPPx -Hep SubQ #Dispo -Med surg Visit type - Emergency Visit Emergency Visit: Yes ED Registration Date: 07/31/18 Care time: The patient presented to the Emergency Department on the above date and was hospitalized for further evaluation of their emergent condition. - New Patient This patient is new to me today: No - Critical Care Critical Care patient: No - Discharge Referral Referred to [facility] Med P.C.: No
[2018-08-05] MEDS: ATORVASTATIN CA 10 MG TABLET (FP) PO SCH (21:23)
[2018-08-06] MEDS: HEPARIN NA (PORCINE) 5,000 UNITS/ML 1ML VIAL SQ SCH ×2 (06:37→13:58)
[2018-08-06] MEDS: ALBUTEROL SO4 2.5/IPRATROPIUM 0.5 INH SOL 3 ML VIAL.NEB. NEB SCH ×3 (07:50→15:28)
--- NOTE | 2018-08-06 08:48 | PN ---
Teaching Attending Note Name of Resident: Wil Purcell ATTENDING PHYSICIAN STATEMENT I saw and evaluated the patient. I reviewed the resident's note and discussed the case with the resident. I agree with the resident's findings and plan as documented with exceptions below. SUBJECTIVE: Patient seen and examined. Breathing improved, no complaints. OBJECTIVE: Vital Signs Period Temp Pulse Resp BP Sys/Pollock Pulse Ox Last 24 Hr 97.6 F-98.6 F 66-107 18-20 131-146/75-89 87-98 Intake & Output 08/03/18 08/04/18 08/05/18 08/06/18 23:59 23:59 23:59 23:59 Intake Total 750 1190 620 Balance 750 1190 620 Weight 128 lb 124 lb 8 oz 130 lb 3.2 oz 133 lb 0.5 oz General; sitting in bed, no use of accessory muscles of respiration Chest: improved air entry today, occasional to no wheezing Abdomen: soft, NT Extremities: no edema Active Medications Albuterol Sulfate (Ventolin 0.083% Nebulizer Soln -) 1 amp NEB Q6H PRN PRN Reason: SHORT OF BREATH/WHEEZING Albuterol/Ipratropium (Duoneb -) 1 amp NEB RQID [facility] Last Admin: 08/06/18 07:50 Dose: 1 amp Amlodipine Besylate (Norvasc -) 5 mg PO DAILY [facility] Last Admin: 08/05/18 11:20 Dose: 5 mg Atorvastatin Calcium (Lipitor -) 10 mg PO HS [facility] Last Admin: 08/05/18 21:23 Dose: 10 mg Budesonide/Formoterol Fumarate (Symbicort 80/4.5mcg -) 2 puff IH BID [facility] Last Admin: 08/05/18 21:24 Dose: 2 puff Elvitegravir/Cobicis/Emtricit/Tenof (Genvoya (Non-Formulary)) 1 tab PO DAILY [facility] Last Admin: 08/05/18 09:17 Dose: 1 tab Heparin Sodium (Porcine) (Heparin -) 5,000 unit SQ TID [facility] Last Admin: 08/06/18 06:37 Dose: 5,000 unit Fluconazole (Diflucan 100 Mg/D5w Premixed Ivpb -) 50 mls @ 50 mls/hr IVPB DAILY [facility] Last Admin: 08/05/18 11:09 Dose: 50 mls/hr Methylprednisolone Sodium Succinate (Solu-Medrol -) 40 mg IVPUSH Q12H [facility] Last Admin: 08/05/18 22:52 Dose: 40 mg Laboratory Results - last 24 hr 08/05/18 08/05/18 08/05/18 06:15 12:15 17:52 WBC 7.5 RBC 4.12 Hgb 13.2 Hct 40.1 MCV 97.4 H MCH 32.0 MCHC 32.8 RDW 12.7 Plt Count 249 MPV 9.0 POC Glucometer 264 212 08/05/18 08/06/18 22:54 06:37 WBC RBC Hgb Hct MCV MCH MCHC RDW Plt Count MPV POC Glucometer 170 144 ASSESSMENT AND PLAN: 68yo M with PMH HIV on HARRT, lung ca s/p RTx, COPD on home O2 (however is not compliant),hydrocele with drainage done on the day of admission in urologist presented to the ER wtih SOB -Acute hypoxic respiratory failure -Acute COPD exacerbation -Lung Ca s/p radiation tx (Pulmonlogist Dr. Gurrola, Oncology Dr. Jerry) -Lactic acidosis, suspect from respiratory effort, resolved -HIV on HAART -Oral thrush, s/p nystatin x 1 month, now on diflucan Plan: Continues to improve. Change to PO prednisone. Nebs standing and prn. CT chest noted. Pulmonary consult noted. Counseling on compliance with home oxygen. Continue HAART therapy. Fluconazole day 5/7. DVTPP heparin Will need 3-4L oxygen on d/c Dispo d/c today on PO steroids with slow taper. Advised patient to use 3 l oxygen at rest and 4 l with activity/ambulation till further assessed by pulmonary Dr. Jerry updated on patient's current hospital stay. Plan discussed with patient in detail, all questions answered.
[2018-08-06] MEDS ORDERED: predniSONE 20 MG TABLET (UD) PO SCH (10:00)
[2018-08-06] MEDS ORDERED: PT OWN MED DRAWER 7, Y5N ONE (10:22)
[2018-08-06] MEDS: amLODIPine BESYLATE 5 MG TABLET (FP) PO SCH (10:23)
[2018-08-06] MEDS: ELVITEG/COB/EMTRI/TENOF (GENVOYA) TABLET (NF) PO SCH (10:24)
[2018-08-06] MEDS: BUDESONIDE/FORMETEROL FUMARATE 80/4.5 mcg INHALER IH SCH (10:26)
--- NOTE | 2018-08-06 11:26 | PN ---
Progress Note (short form) - Note Progress Note: PULMONARY Breathing improving. Less cough and wheezing. Vital Signs Period Temp Pulse Resp BP Sys/Pollock Pulse Ox Last 24 Hr 97.6 F-98.2 F 66-107 18-22 131-146/75-89 87-98 Gen: less tachypneic with speaking Heart: RRR Lung: rare rhonchi, wheezes Abd: soft, nontender Ext: no edema CBC, BMP 08/05/18 06:15 08/05/18 06:15 Active Medications Albuterol Sulfate (Ventolin 0.083% Nebulizer Soln -) 1 amp NEB Q6H PRN PRN Reason: SHORT OF BREATH/WHEEZING Albuterol/Ipratropium (Duoneb -) 1 amp NEB RQID [facility] Last Admin: 08/06/18 11:05 Dose: 1 amp Amlodipine Besylate (Norvasc -) 5 mg PO DAILY [facility] Last Admin: 08/06/18 10:23 Dose: 5 mg Atorvastatin Calcium (Lipitor -) 10 mg PO HS [facility] Last Admin: 08/05/18 21:23 Dose: 10 mg Budesonide/Formoterol Fumarate (Symbicort 80/4.5mcg -) 2 puff IH BID [facility] Last Admin: 08/06/18 10:26 Dose: 2 puff Elvitegravir/Cobicis/Emtricit/Tenof (Genvoya (Non-Formulary)) 1 tab PO DAILY [facility] Last Admin: 08/06/18 10:24 Dose: 1 tab Heparin Sodium (Porcine) (Heparin -) 5,000 unit SQ TID [facility] Last Admin: 08/06/18 06:37 Dose: 5,000 unit Fluconazole (Diflucan 100 Mg/D5w Premixed Ivpb -) 50 mls @ 50 mls/hr IVPB DAILY [facility] Last Admin: 08/05/18 11:09 Dose: 50 mls/hr Prednisone (Deltasone -) 60 mg PO DAILY [facility] Last Admin: 08/06/18 10:23 Dose: 60 mg A/P Acute on Chronic Hypoxic Respiratory Failure Acute COPD Exacerbation h/o Lung Cancer HIV - agree with changing steroids to PO and can taper as outpt - inhaled bronchodilators - o2 to keep Spo2 >90% - DVT prophylaxis
[2018-08-06 12:35] VITALS: BMI 22.8
[2018-08-06] MEDS: FLUCONAZOLE 100 MG/D5W 50 ML IVPB SCH (14:01)
[2018-08-06 14:55] VITALS: BP 148/75; PULSE 85; TEMP 98
--- NOTE | 2018-08-06 18:07 | DS ---
Physical Exam: SUBJECTIVE: Patient seen and examined at bedside. Endorses SOB remains, unchanged from yesterday. No acute events overnight. OBJECTIVE: Vital Signs Period Temp Pulse Resp BP Sys/Pollock Pulse Ox Last 24 Hr 97.6 F-98.0 F 66-96 18-22 131-148/75-83 98-98 PHYSICAL EXAM GENERAL: NAD, AAOx3, on 3L Nc O2 HEAD: NC/AT EYES: EOMI ENT: MMM LUNGS: Expiratory wheezing b/l, crackles at bases HEART: RRR MRG S1S2 ABDOMEN: Soft, NDNT EXTREMITIES: No CCE PSYCH: Normal mood, normal affect. SKIN: No rashes or lesions appreciated LABS Laboratory Results - last 24 hr 08/05/18 08/05/18 08/06/18 17:52 22:54 06:37 POC Glucometer 212 170 144 08/06/18 08/06/18 11:52 17:02 POC Glucometer 175 157 HOSPITAL COURSE: Date of Admission:07/31/18 Pt with PMH of COPD, lung CA, and HIV (on HARRT) presented to [facility] due to increasing shortness of breath, increased work of breathing, cough and diffuse wheezing. Pt was treated with steroids, antibiotics, and multiple nebulizer treatments. Pt remained on NC O2 3l for the duration of his stay. CT Chest revealed a nodule in the right upper lung 0.4 cm. Pt was informed to follow up with his welt drawer as outpatient as well as his oncologist to work this up. Furthermore, pt underwent Pre and Post testing which he could not perform as his O2 saturation on room air fell to 85%. Pt was advised to remain on home O2 3L on rest and 4L with activity. Pt was also placed on Amlodipine 5 mg as he was noted to be hypertensive during his stay. Date of Discharge: 08/06/18 Minutes to complete discharge: 35 Discharge Summary Reason For Visit: MALIGNANT NEOPLASM LUNG; ACUTE COPD EXACERBATION Condition: Improved - Instructions Diet, Activity, Other Instructions: You presented to [facility] due to increasing shortness of breath and found to have a COPD exacerbation. You were treated with Steroids, antibiotics, as well as nebulizer treatments. Your oxygen level was noticeably low. It is very important for you to remain on your home oxygen therapy. You will continue your steroid medication after you are discharged from the hospital. It is recommended that you use 3L oxygen at rest and 4 l with activity/ ambulation until further assessed by welt drawer, Dr Vu. Please take the following steroid medication as detailed below: Please take 60mg Prednisone for 3 days, then taper on the following schedule: We will give you pills in 10mg increments. If you need to, break the pill in half to achieve the correct dose. 55mg for 3 days 50mg for 3 days 45mg for 3 days 40mg for 3 days 35mg for 3 days Please see your welt drawer Dr. Vu before this time point 30mg for 3 days 25mg for 3 days 20mg for 3 days 15mg for 3 days 10mg for 3 days 5mg for 3 days We started you on amlodipine 5mg for blood pressure. Please continue this medication and check your blood pressure every morning. Please follow with your primary care doctor. You were also noted to have a nodule in the upper lobe of your right lung. Please follow up with your cancer doctor, Dr Jerry within 1 week. Please follow up with the lung doctor Dr. Vu in 1-2 weeks, a referral has been attached to your discharge papers Please see your cancer doctor this week. A referral has been attached with your discharge papers. Referrals: Earnest Vu MD [Staff Physician] - 2 Weeks Melissa Coronel MD [Primary Care Provider] - 1 Week Disposition: VNS/HOME HEALTH CARE - Home Medications Comprehensive Discharge Medication List: Ambulatory Orders Albuterol Sulfate Inhaler - [Ventolin HFA Inhaler -] 1 - 2 inh PO QID PRN #1 inhaler 06/25/17 Albuterol Sulfate 0.5% [Ventolin 0.5% Nebulizing Soln. -] 1 amp NEB Q6H PRN #1 box 02/06/18 Atorvastatin Ca [Lipitor] 10 mg PO HS #30 tablet 03/17/18 Elviteg/Cob/Emtri/Tenof Alafen [Genvoya Tablet] 1 each PO DAILY #30 tablet 05/14 Ipratropium/Albuterol Sulfate [Combivent Respimat 20-100 Mcg] 1 inh IH QID #1 aer.w.adap 06/18/18 Albuterol 2.5/Ipratropium 0.5 [Duoneb -] 1 neb NEB Q8H PRN #30 vial 07/09/18 Fluticasone/Salmeterol [Advair Hfa 230-21 Mcg Inhaler] 1 inh PO BID #1 inhaler 07/09/18 Amlodipine Besylate [Norvasc -] 5 mg PO DAILY #14 tablet 08/06/18 Prednisone See Taper PO DAILY #120 tablet 08/06/18 This patient is new to me today: No Emergency Visit: Yes ED Registration Date: 07/31/18 Care time: The patient presented to the Emergency Department on the above date and was hospitalized for further evaluation of their emergent condition. Critical Care patient: No - Discharge Referral Referred to [facility] Med P.C.: No
== END 2018-08-06 17:29 | disposition home health service (06) | DRG 189 ==
LOC: JER 12:32 → JERBED 15:42 → J8W 20:53
PROVIDERS: ADMIT Internal Medicine; ATTEND Hospitalist
DX: J96.21 Acute and chronic respiratory failure with hypoxia (principal); C34.90 Malignant neoplasm of unspecified part of unspecified bronchus or lung; J44.1 Chronic obstructive pulmonary disease with (acute) exacerbation; E87.2 Acidosis; B37.0 Candidal stomatitis; N43.3 Hydrocele, unspecified; R91.1 Solitary pulmonary nodule; Z21 Asymptomatic human immunodeficiency virus [HIV] infection status; R00.0 Tachycardia, unspecified; Z99.81 Dependence on supplemental oxygen
CPT/HCPCS: 36415; 71045-TC-FY; 71046-TC-FY; 71250-TC; 80048; 80053; 82550; 82553; 82803; 82962; 83036; 83605; 83735; 83880; 84100; 84484; 85025; 85027; 85610; 85730; 87040; 93005; 93010; 94640; 94761; 97116-GP; 97161-GP; 99283-25; J1644; J7030

== ENCOUNTER 2018-08-13 11:39 | Emergency (ER) | payer OTHER ==
[2018-08-13 11:49] VITALS: BMI 22.3
--- NOTE | 2018-08-13 12:50 | PDOC ---
History of Present Illness - General Chief Complaint: Edema Stated Complaint: EDEMA Time Seen by Provider: 08/13/18 12:49 History Source: Patient - History of Present Illness Initial Comments: 08/13/18 13:26 The patient is a 68 year old male with a PMH of HIV (on HAART), COPD, lung CA, COPD on 3 L Oxygen at rest, hydrocele that presented to ED today complaining of swollen feet that he noticed after discharge from hospital on 08/06/18. He was hospitalized for COPD exacerbation and sent home on steroid taper. The patient is compliant with taking his medications, still on Prednisone. He states that his feet are swollen all the time,, left more than right and is complaining of discomfort when walking, standing. He denies SOB, wheezing, chest pain, palpitations, abdominal pain, nausea/vomiting. Timing/Duration: 1 week Severity: mild Past History - Past Medical History Allergies/Adverse Reactions: Allergies Allergy/AdvReac Type Severity Reaction Status Date / Time No Known Allergies Allergy Verified 07/03/18 09:47 Home Medications: Ambulatory Orders Albuterol Sulfate Inhaler - [Ventolin HFA Inhaler -] 1 - 2 inh PO QID PRN #1 inhaler 06/25/17 Albuterol Sulfate 0.5% [Ventolin 0.5% Nebulizing Soln. -] 1 amp NEB Q6H PRN #1 box 02/06/18 Atorvastatin Ca [Lipitor] 10 mg PO HS #30 tablet 03/17/18 Elviteg/Cob/Emtri/Tenof Alafen [Genvoya Tablet] 1 each PO DAILY #30 tablet 05/14 Ipratropium/Albuterol Sulfate [Combivent Respimat 20-100 Mcg] 1 inh IH QID #1 aer.w.adap 06/18/18 Albuterol 2.5/Ipratropium 0.5 [Duoneb -] 1 neb NEB Q8H PRN #30 vial 07/09/18 Fluticasone/Salmeterol [Advair Hfa 230-21 Mcg Inhaler] 1 inh PO BID #1 inhaler 07/09/18 Amlodipine Besylate [Norvasc -] 5 mg PO DAILY #14 tablet 08/06/18 Prednisone See Taper PO DAILY #120 tablet 08/06/18 Hydrochlorothiazide [Hctz -] 12.5 mg PO DAILY #30 cap 08/13/18 Anemia: No Asthma: No Cancer: Yes (lung cancer 2017) Cardiac Disorders: No CVA: No COPD: Yes CHF: No Dementia: No Diabetes: No GI Disorders: No Disorders: No HTN: No Hypercholesterolemia: No Liver Disease: No Seizures: No Thyroid Disease: No - Immunization History Immunization Up to Date: (UNKNOWN) - Suicide/Smoking/Psychosocial Hx Smoking History: Former smoker Have you smoked in the past 12 months: No Number of Cigarettes Smoked Daily: 20 If you are a former smoker, when did you quit?: 2016 Cigars Per Day: 0 Information on smoking cessation initiated: No 'Breaking Loose' booklet given: 01/21/15 Hx Alcohol Use: No Drug/Substance Use Hx: No Substance Use Type: None Hx Substance Use Treatment: No Review of Systems - Review of Systems Able to Perform ROS?: Yes Constitutional: No: Symptoms Reported HEENTM: No: Symptoms Reported Respiratory: No: Symptoms reported, Cough, Shortness of Breath, Wheezing Cardiac (ROS): Yes: Symptoms Reported (feet, lmore than r), Edema ABD/GI: No: Symptoms Reported, Diarrhea, Nausea : No: Symptoms Reported *Physical Exam - Vital Signs Last Vital Signs Temp Pulse Resp BP Pulse Ox 97.8 F 86 22 H 139/69 95 08/13/18 11:46 08/13/18 11:46 08/13/18 11:46 08/13/18 11:46 08/13/18 11:46 - Physical Exam General Appearance: Yes: Nourished HEENT: positive: EOMI Respiratory/Chest: positive: Crackles (occasional crackles at bases bilaterally) . negative: Accessory Muscle Use, Rales, Rhonchi, Wheezing Cardiovascular: positive: Regular Rhythm, Regular Rate, S1, S2, Edema (feet, left more than right). negative: Murmur Vascular Pulses: Dorsalis-Pedis (R): 2+, Doralis-Pedis (L): 2+ Gastrointestinal/Abdominal: positive: Normal Bowel Sounds, Flat, Soft. negative : Tenderness Extremity: positive: Pedal Edema, Swelling. negative: Tender, Calf Tenderness Neurologic: positive: Fully Oriented, Alert Moderate Sedation - Procedure Monitoring Vital Signs: Procedure Monitoring Vital Signs Temperature 97.8 F 08/13/18 11:46 Pulse Rate 86 08/13/18 11:46 Respiratory Rate 22 H 08/13/18 11:46 Blood Pressure 139/69 08/13/18 11:46 O2 Sat by Pulse Oximetry (%) 95 08/13/18 11:46 ED Treatment Course - LABORATORY CBC & Chemistry Diagram: 08/13/18 13:12 08/13/18 13:12 Medical Decision Making - Medical Decision Making 08/13/18 13:36 The patient with a PMH of HIV, COPD, lung Ca presents to ED complaining od swollen feet since discharge from hospital one week ago. CBC, CMP, ekg ordered, most likely side effect to steroids that cause water retention, side effect of Amlodypine, less likely CHF exacerbation, DVT. 08/13/18 15:10 CBC nl, CMP with mildly elevated AST, ALT. We changed Amlodypine to 12.5 of HCTZ. DC home with recommendation to follow up with PCP next week to f/u labs and swelling. *DC/Admit/Observation/Transfer Diagnosis at time of Disposition: Edema Qualifiers: Edema type: unspecified Qualified Code(s): R60.9 - Edema, unspecified - Discharge Dispostion Disposition: HOME Condition at time of disposition: Good Decision to Admit order: No - Prescriptions Prescriptions: Hydrochlorothiazide [Hctz -] 12.5 mg PO DAILY #30 cap - Referrals - Patient Instructions Printed Discharge Instructions: DI for Peripheral Edema -- Bilateral Additional Instructions: You were evaluated in Emergency Room for ankle edema. We believe it was caused by blood pressure medication that you were taking: Amlodypine. We changed it to HCTZ 12.5 mg daily. Please take it every day and see your primary care physician next week. We also would like you to repeat lab work next week to monitor your liver. - Post Discharge Activity
--- NOTE | 2018-08-13 13:57 | PDOC ---
Attending Attestation - Resident Resident Name: Viola Hernandez - ED Attending Attestation I have performed the following: I have examined & evaluated the patient, The case was reviewed & discussed with the resident, I agree w/resident's findings & plan, Exceptions are as noted - HPI HPI: 68 yo M history HTN, COPD, HIV on ART presents with swelling to B/L feet. He states he was recently discharged from the hospital with a steroid taper, started to develop swelling in his feet. Denies pain, weakness, numbness. No redness, rash. Denies any trauma. No prior history of CHF. - Physicial Exam PE: GENERAL: Awake, alert, and fully oriented, in no acute distress HEAD: No signs of trauma EYES: PERRLA, EOMI, sclera anicteric, conjunctiva clear ENT: Auricles normal inspection, hearing grossly normal, nares patent, oropharynx clear without exudates. Moist mucosa NECK: Normal ROM, supple, no lymphadenopathy, JVD, or masses LUNGS: Breath sounds equal, clear to auscultation bilaterally. No wheezes, and no crackles HEART: Regular rate and rhythm, normal S1 and S2, no murmurs, rubs or gallops ABDOMEN: Soft, nontender, normoactive bowel sounds. No guarding, no rebound. No masses EXTREMITIES: Normal range of motion, 2+ pitting edema to feet B/L. No clubbing or cyanosis. No cords, erythema, or tenderness NEUROLOGICAL: Cranial nerves II through XII grossly intact. Normal speech, normal gait SKIN: Warm, Dry, normal turgor, no rashes or lesions noted. - Medical Decision Making Pt was started on norvasc upon his discharge from the hospital, which may be causing the swelling. Labs show normal BNP and renal function. Will DC the norvasc and switch to HCTZ.
[2018-08-13 14:30] LABS: BASO % 0.1 % (0-2.0); EOS % 0.8 % (0-4.5); HEMATOCRIT 39.6 % (35.4-49); HEMOGLOBIN 13.4 GM/dL (11.7-16.9); LYMPH % 25.4 % (8-40); MCH 32.9 pg (25.7-33.7); MCHC 33.8 g/dl (32.0-35.9); MEAN CELL VOLUME 97.3 fl (80-96); MEAN PLT VOLUME 8.3 fl (7.5-11.1); MONO % 13.2 % (3.8-10.2); NEUT % 60.5 % (42.8-82.8); PLATELET COUNT 190 K/MM3 (134-434); RBC 4.07 M/mm3 (4.00-5.60); RDW 13.9 % (11.9-15.9); WHITE BLOOD COUNT 7.7 K/mm3 (4.0-10.0)
[2018-08-13 14:54] LABS: ALBUMIN 3.1 g/dl (3.4-5.0); ALK PHOS 110 U/L (45-117); ANION GAP 5 MMOL/L (8-16); BILIRUBIN,TOTAL 0.3 mg/dL (0.2-1); BLOOD UREA NITROGEN 8 mg/dL (7-18); CHLORIDE 106 mmol/L (98-107); CO2 30 mmol/L (21-32); CREATININE 0.8 mg/dL (0.55-1.3); GLUCOSE,RANDOM 79 mg/dL (74-106); N-TERMINAL BNP 13.5 pg/ml (5-125); POTASSIUM 4.3 mmol/L (3.5-5.1); SGOT/AST 46 U/L (15-37); SGPT/ALT 64 U/L (13-61); SODIUM 142 mmol/L (136-145)
[2018-08-13 15:22] LABS: ANISOCYTOSIS 1+; MACROCYTOSIS 1+; PLATELET ESTIMATE NORMAL
[2018-08-13 15:42] VITALS: BP 132/74; PULSE 80; TEMP 98.3
--- NOTE | 2018-08-14 10:22 | EKG ---
Test Reason : Blood Pressure : / mmHG Vent. Rate : 075 BPM Atrial Rate : 075 BPM P-R Int : 148 ms QRS Dur : 070 ms QT Int : 370 ms P-R-T Axes : 064 070 064 degrees QTc Int : 413 ms NORMAL SINUS RHYTHM SEPTAL INFARCT (CITED ON OR BEFORE 31-JUL-2018) ABNORMAL ECG WHEN COMPARED WITH ECG OF 31-JUL-2018 14:09, ST NO LONGER DEPRESSED IN ANTERIOR LEADS Confirmed by FIDEL DELGADO MD [id number]) on 08/14/2018 10:22:09 AM Referred By: Confirmed By:FIDEL DELGADO MD
== END 2018-08-13 15:43 | disposition home or self-care (01) ==
LOC: JER 11:39
DX: R60.9 Edema, unspecified (principal); J44.9 Chronic obstructive pulmonary disease, unspecified; Z85.118 Personal history of other malignant neoplasm of bronchus and lung; Z21 Asymptomatic human immunodeficiency virus [HIV] infection status
CPT/HCPCS: 36415; 80053; 83880; 85025; 93005; 93010; 99282-25

== ENCOUNTER → 2019-04-28 | Outpatient (CLI) | payer OTHER | LOC: YHH 10:27 ==

== ENCOUNTER 2020-08-28 11:46 | Emergency (ER) | payer OTHER ==
[2020-08-28 11:58] VITALS: BMI 25.4
[2020-08-28 12:56] LABS: BASO % 0.4 % (0-2.0); EOS % 0.7 % (0-4.5); HEMATOCRIT 37.3 % (35.4-49); HEMOGLOBIN 12.7 GM/dL (11.7-16.9); LYMPH % 24.8 % (8-40); MCH 31.4 pg (25.7-33.7); MCHC 33.9 g/dl (32.0-35.9); MEAN CELL VOLUME 92.6 fl (80-96); MEAN PLT VOLUME 8.6 fl (7.5-11.1); MONO % 8.1 % (3.8-10.2); PLATELET COUNT 250 K/MM3 (134-434); RBC 4.03 M/mm3 (4.00-5.60); RDW 13.2 % (11.9-15.9); WHITE BLOOD COUNT 8.2 K/mm3 (4.0-10.0)
[2020-08-28 13:13] LABS: CHLORIDE 100 mmol/L (98-107); SODIUM 138 mmol/L (136-145)
[2020-08-28 13:15] LABS: CALCIUM 9.8 mg/dL (8.5-10.1)
[2020-08-28 13:16] LABS: ANION GAP 4 MMOL/L (8-16); BLOOD UREA NITROGEN 14.4 mg/dL (7-18); CO2 35 mmol/L (21-32); GLUCOSE,RANDOM 97 mg/dL (74-106)
[2020-08-28 13:19] LABS: CREATININE 0.9 mg/dL (0.55-1.3); SGOT/AST 33 U/L (15-37); SGPT/ALT 26 U/L (13-61)
[2020-08-28 13:20] LABS: BILIRUBIN,TOTAL 0.6 mg/dL (0.2-1); TOT PROT 7.5 g/dl (6.4-8.2)
[2020-08-28 13:22] LABS: ALK PHOS 189 U/L (45-117)
[2020-08-28 14:43] VITALS: BP 130/87; PULSE 90; TEMP 98.1
== END 2020-08-28 14:41 | disposition home or self-care (01) ==
LOC: JER 11:46
DX: J44.1 Chronic obstructive pulmonary disease with (acute) exacerbation (principal); C34.90 Malignant neoplasm of unspecified part of unspecified bronchus or lung; B20 Human immunodeficiency virus [HIV] disease
CPT/HCPCS: 36415; 71045-TC-FY; 71250-TC; 80053; 83880; 84484; 85025; 93005; 93010; 99285-25

== ENCOUNTER 2022-12-23 12:57 | Observation (INO) | payer OTHER ==
[2022-12-23 13:20] VITALS: BMI 20.5
[2022-12-23] MEDS ORDERED: ALBUTEROL SO4 2.5/IPRATROPIUM 0.5 INH SOL 3 ML VIAL.NEB. NEB ONE ×4 (13:32→14:46)
[2022-12-23 14:24] LABS: VENOUS BASE EXCESS 5.1 mmol/L (-2-2)
[2022-12-23 14:27] LABS: VENOUS PCO2 101.1 mmHg (38-52); VENOUS PH 7.193 (7.310-7.410)
[2022-12-23] MEDS ORDERED: methylPREDNISolone NA SUCC 125 MG/2 ML VIAL IVPUSH ONE (14:32)
[2022-12-23 14:35] LABS: BASO % 0.5 % (0-2.0); EOS % 0.4 % (0-4.5); HEMATOCRIT 44.9 % (35.4-49); HEMOGLOBIN 15.1 GM/dL (11.7-16.9); LYMPH % 8.1 % (8-40); MCH 31.7 pg (25.7-33.7); MCHC 33.8 g/dl (32.0-35.9); MEAN CELL VOLUME 94.1 fl (80-96); MEAN PLT VOLUME 8.8 fl (7.5-11.1); MONO % 6.5 % (3.8-10.2); NEUT % 84.5 % (42.8-82.8); PLATELET COUNT 202 10^3/uL (134-434); RBC 4.77 M/mm3 (4.00-5.60); WHITE BLOOD COUNT 8.1 K/mm3 (4.0-10.0)
[2022-12-23 14:39] LABS: INR 1.03 (0.83-1.09)
[2022-12-23] MEDS ORDERED: methylPREDNISolone NA SUCC 125 MG/2 ML VIAL ONE (14:46)
[2022-12-23 14:47] LABS: POTASSIUM 4.2 mmol/L (3.5-5.1)
[2022-12-23 14:50] LABS: ALBUMIN 3.8 g/dl (3.4-5.0); BLOOD UREA NITROGEN 9.9 mg/dL (7-18); CALCIUM 9.6 mg/dL (8.5-10.1)
[2022-12-23 14:53] LABS: CREATININE 0.9 mg/dL (0.55-1.3)
[2022-12-23 14:55] LABS: BILIRUBIN,TOTAL 1.1 mg/dL (0.2-1); TOT PROT 7.7 g/dl (6.4-8.2)
[2022-12-23 14:58] LABS: N-TERMINAL BNP 52.6 pg/ml (5-125)
[2022-12-23 15:03] LABS: URINE APPEARANCE CLEAR; URINE BILIRUBIN NEGATIVE (NEGATIVE); URINE COLOR YELLOW; URINE GLUCOSE (UA) NEGATIVE (NEGATIVE); URINE KETONE NEGATIVE (NEGATIVE); URINE LEUK ESTERASE NEGATIVE (NEGATIVE); URINE NITRITE NEGATIVE (NEGATIVE); URINE PROTEIN NEGATIVE (NEGATIVE); URINE UROBILINOGEN 0.2 mg/dL (0.2-1.0)
[2022-12-23] MEDS ORDERED: PIPERACILLIN/TAZOB 4.5 GM 4.5 GM in DEXTROSE 5%-WATER 100 ML IVPB ONE (15:04)
[2022-12-23] MEDS ORDERED: PIPERACILLIN/TAZOB 4.5 GM 4.5 GM/100 ML BAG IVPB ONE (15:21)
[2022-12-23] MEDS ORDERED: MAGNESIUM 1GM/D5W - 1 GM/100 ML IVPB IVPB ONE (15:21)
[2022-12-23] MEDS ORDERED: LORATADINE 10 MG TABLET PO PRN (17:56)
[2022-12-23] MEDS ORDERED: ALBUTEROL SO4 HFA INHALER IH PRN (17:59)
[2022-12-23 18:28] LABS: ARTERIAL BLD GAS O2 SATURATION 39.3 % (95-98); ARTERIAL BLOOD GAS BASE EXCESS 5.7 mmol/L (-2-2); ARTERIAL BLOOD GAS pH 7.264 (7.350-7.450)
[2022-12-23 18:48] LABS: ARTERIAL BLOOD GAS PO2 26.8 mmHg (80-100)
[2022-12-23] MEDS ORDERED: FUROSEMIDE 20 MG TABLET (FP) ONE (18:50)
[2022-12-23] MEDS: FUROSEMIDE 20 MG TABLET (FP) PO SCH (18:57)
[2022-12-23] MEDS: ALBUTEROL SO4 2.5/IPRATROPIUM 0.5 INH SOL 3 ML VIAL.NEB. NEB SCH (20:31)
[2022-12-23] MEDS: HEPARIN NA (PORCINE) 5,000 UNITS/ML 1ML VIAL SQ SCH (21:37)
[2022-12-23] MEDS: ATORVASTATIN CA 20 MG TABLET (FP) PO SCH (21:38)
[2022-12-23] MEDS: BUDESONIDE/FORMETEROL FUMARATE 160/4.5 mcg INHALER IH SCH (22:06)
[2022-12-24] MEDS: ALBUTEROL SO4 2.5/IPRATROPIUM 0.5 INH SOL 3 ML VIAL.NEB. NEB SCH ×4 (07:25→19:43)
[2022-12-24] MEDS: HEPARIN NA (PORCINE) 5,000 UNITS/ML 1ML VIAL SQ SCH ×2 (10:25→21:52)
[2022-12-24] MEDS: BICTEGRAV/EMTRICIT/TENOFOV (BIKTARVY) 50-200-25 MG TABLET PO SCH (10:26)
[2022-12-24] MEDS: FUROSEMIDE 20 MG TABLET (FP) PO SCH (10:26)
[2022-12-24] MEDS: BUDESONIDE/FORMETEROL FUMARATE 160/4.5 mcg INHALER IH SCH ×2 (10:26→21:52)
[2022-12-24] MEDS: predniSONE 20 MG TABLET (UD) PO SCH (10:26)
[2022-12-24] MEDS: AZITHROMYCIN IVPB 500 MG/250 ML BAG IVPB SCH (10:27)
[2022-12-24 11:34] LABS: BASO % 0.1 % (0-2.0); HEMATOCRIT 38.3 % (35.4-49); LYMPH % 12.5 % (8-40); MCH 31.7 pg (25.7-33.7); MCHC 33.9 g/dl (32.0-35.9); MEAN CELL VOLUME 93.6 fl (80-96); MEAN PLT VOLUME 8.5 fl (7.5-11.1); MONO % 8.9 % (3.8-10.2); NEUT % 78.5 % (42.8-82.8); PLATELET COUNT 215 10^3/uL (134-434); RBC 4.09 M/mm3 (4.00-5.60); RDW 14.4 % (11.9-15.9); WHITE BLOOD COUNT 8.5 K/mm3 (4.0-10.0)
[2022-12-24 11:50] LABS: POTASSIUM 4.1 mmol/L (3.5-5.1)
[2022-12-24] MEDS ORDERED: INSULIN (NOVOLOG) ASPART 100 UNITS/ML 10ML VIAL ONE (11:55)
[2022-12-24 12:05] LABS: BLOOD UREA NITROGEN 15.6 mg/dL (7-18); CALCIUM 9.5 mg/dL (8.5-10.1)
[2022-12-24 12:08] LABS: CREATININE 0.8 mg/dL (0.55-1.3)
[2022-12-24 13:26] LABS: ARTERIAL BLD GAS O2 SATURATION 94.6 % (95-98); ARTERIAL BLOOD GAS PO2 74.8 mmHg (80-100); ARTERIAL BLOOD GAS pH 7.387 (7.350-7.450)
[2022-12-24 13:27] LABS: ALLENS TEST POSITIVE
[2022-12-24] MEDS: ATORVASTATIN CA 20 MG TABLET (FP) PO SCH (21:52)
[2022-12-25] MEDS: ALBUTEROL SO4 2.5/IPRATROPIUM 0.5 INH SOL 3 ML VIAL.NEB. NEB SCH ×4 (07:38→20:30)
[2022-12-25] MEDS: FUROSEMIDE 20 MG TABLET (FP) PO SCH (09:20)
[2022-12-25] MEDS: predniSONE 20 MG TABLET (UD) PO SCH (09:20)
[2022-12-25] MEDS: HEPARIN NA (PORCINE) 5,000 UNITS/ML 1ML VIAL SQ SCH ×2 (09:20→21:04)
[2022-12-25] MEDS: BUDESONIDE/FORMETEROL FUMARATE 160/4.5 mcg INHALER IH SCH ×2 (09:21→21:07)
[2022-12-25] MEDS: BICTEGRAV/EMTRICIT/TENOFOV (BIKTARVY) 50-200-25 MG TABLET PO SCH (09:21)
[2022-12-25] MEDS: AZITHROMYCIN IVPB 500 MG/250 ML BAG IVPB SCH (09:21)
[2022-12-25 10:47] LABS: ARTERIAL BLOOD GAS PO2 85.2 mmHg (80-100); ARTERIAL BLOOD GAS pH 7.378 (7.350-7.450)
[2022-12-25 10:50] LABS: ALLENS TEST POSITIVE
[2022-12-25] MEDS: ATORVASTATIN CA 20 MG TABLET (FP) PO SCH (21:07)
[2022-12-26 04:26] VITALS: RESP 18
[2022-12-26] MEDS: ALBUTEROL SO4 2.5/IPRATROPIUM 0.5 INH SOL 3 ML VIAL.NEB. NEB SCH ×4 (07:38→20:25)
[2022-12-26] MEDS: predniSONE 20 MG TABLET (UD) PO SCH (09:15)
[2022-12-26] MEDS: FUROSEMIDE 20 MG TABLET (FP) PO SCH (09:15)
[2022-12-26] MEDS: BICTEGRAV/EMTRICIT/TENOFOV (BIKTARVY) 50-200-25 MG TABLET PO SCH (09:15)
[2022-12-26] MEDS: HEPARIN NA (PORCINE) 5,000 UNITS/ML 1ML VIAL SQ SCH ×2 (09:16→21:40)
[2022-12-26] MEDS: AZITHROMYCIN 500 MG TABLET PO SCH (09:16)
[2022-12-26] MEDS: BUDESONIDE/FORMETEROL FUMARATE 160/4.5 mcg INHALER IH SCH ×2 (09:16→21:41)
[2022-12-26] MEDS: ATORVASTATIN CA 20 MG TABLET (FP) PO SCH (21:40)
[2022-12-27] MEDS: ALBUTEROL SO4 2.5/IPRATROPIUM 0.5 INH SOL 3 ML VIAL.NEB. NEB SCH ×4 (08:40→20:23)
[2022-12-27] MEDS: HEPARIN NA (PORCINE) 5,000 UNITS/ML 1ML VIAL SQ SCH ×2 (09:08→21:08)
[2022-12-27] MEDS: predniSONE 20 MG TABLET (UD) PO SCH (09:08)
[2022-12-27] MEDS: FUROSEMIDE 20 MG TABLET (FP) PO SCH (09:08)
[2022-12-27] MEDS: AZITHROMYCIN 500 MG TABLET PO SCH (09:08)
[2022-12-27] MEDS: BICTEGRAV/EMTRICIT/TENOFOV (BIKTARVY) 50-200-25 MG TABLET PO SCH (09:09)
[2022-12-27] MEDS: BUDESONIDE/FORMETEROL FUMARATE 160/4.5 mcg INHALER IH SCH ×2 (09:10→21:08)
[2022-12-27] MEDS: ATORVASTATIN CA 20 MG TABLET (FP) PO SCH (21:07)
[2022-12-28] MEDS: ALBUTEROL SO4 2.5/IPRATROPIUM 0.5 INH SOL 3 ML VIAL.NEB. NEB SCH ×2 (08:22→11:22)
[2022-12-28 09:00] VITALS: BP 144/67; PULSE 81; TEMP 98.4
[2022-12-28] MEDS: FUROSEMIDE 20 MG TABLET (FP) PO SCH (09:11)
[2022-12-28] MEDS: HEPARIN NA (PORCINE) 5,000 UNITS/ML 1ML VIAL SQ SCH (09:11)
[2022-12-28] MEDS: predniSONE 20 MG TABLET (UD) PO SCH (09:11)
[2022-12-28] MEDS: BICTEGRAV/EMTRICIT/TENOFOV (BIKTARVY) 50-200-25 MG TABLET PO SCH (09:12)
[2022-12-28] MEDS: AZITHROMYCIN 500 MG TABLET PO SCH (09:12)
[2022-12-28] MEDS: BUDESONIDE/FORMETEROL FUMARATE 160/4.5 mcg INHALER IH SCH (09:13)
== END 2022-12-28 13:56 | disposition home or self-care (01) ==
LOC: JER 12:57 → JERBED 15:17 → J6S 19:39
PROVIDERS: ADMIT Internal Medicine; ATTEND Internal Medicine
PROC: 3E0F7GC Introduction of Other Therapeutic Substance into Respiratory Tract, Via Natural or Artificial Opening (ICD-10-PCS; principal; 2022-12-23)
PROC: 3E03329 Introduction of Other Anti-infective into Peripheral Vein, Percutaneous Approach (ICD-10-PCS; 2022-12-23)
PROC: 3E023GC Introduction of Other Therapeutic Substance into Muscle, Percutaneous Approach (ICD-10-PCS; 2022-12-23)
PROC: 3E033GC Introduction of Other Therapeutic Substance into Peripheral Vein, Percutaneous Approach (ICD-10-PCS; 2022-12-23)
DX: J44.1 Chronic obstructive pulmonary disease with (acute) exacerbation (principal); J96.11 Chronic respiratory failure with hypoxia; J96.22 Acute and chronic respiratory failure with hypercapnia; E43 Unspecified severe protein-calorie malnutrition; B20 Human immunodeficiency virus [HIV] disease; E78.5 Hyperlipidemia, unspecified; I10 Essential (primary) hypertension; Z99.81 Dependence on supplemental oxygen; Z87.891 Personal history of nicotine dependence; Z29.8 Encounter for other specified prophylactic measures
CPT/HCPCS: 0241U-QW; 36415; 36600; 71045-TC-FY; 80048; 80053; 81003; 82550; 82553; 82803; 82962; 83605; 83880; 84484; 85025; 85610; 87040; 93005; 93010; 94640; 94660; 96365; 96367; 96368; 96372; 96375; 99291; G0378; J1644

== ENCOUNTER 2023-01-06 10:07 | Emergency (ER) | payer OTHER ==
[2023-01-06 10:34] VITALS: BMI 19.2
[2023-01-06 13:48] VITALS: BP 135/59; PULSE 74; RESP 19; TEMP 98
== END 2023-01-06 14:32 | disposition home or self-care (01) ==
LOC: JER 10:07
DX: Z00.00 Encounter for general adult medical examination without abnormal findings (principal)
CPT/HCPCS: 99283-25

== ENCOUNTER 2023-01-21 17:14 | Inpatient (IN) | payer OTHER ==
[2023-01-21] MEDS ORDERED: SODIUM CHLORIDE 0.9% 1000 ML INFUS.BAG IV ONE (18:30)
[2023-01-21 19:00] LABS: BASO % 0.3 % (0-2.0); EOS % 1.1 % (0-4.5); HEMATOCRIT 40.9 % (35.4-49); HEMOGLOBIN 13.2 GM/dL (11.7-16.9); LYMPH % 11.8 % (8-40); MCH 30.6 pg (25.7-33.7); MCHC 32.3 g/dl (32.0-35.9); MEAN CELL VOLUME 94.8 fl (80-96); MEAN PLT VOLUME 8.6 fl (7.5-11.1); MONO % 11.2 % (3.8-10.2); NEUT % 75.6 % (42.8-82.8); PLATELET COUNT 213 10^3/uL (134-434); RBC 4.31 M/mm3 (4.00-5.60); RDW 13.9 % (11.9-15.9); WHITE BLOOD COUNT 5.7 K/mm3 (4.0-10.0)
[2023-01-21 19:22] LABS: POTASSIUM 3.8 mmol/L (3.5-5.1)
[2023-01-21 19:24] LABS: CALCIUM 9.6 mg/dL (8.5-10.1)
[2023-01-21 19:25] LABS: ALBUMIN 3.4 g/dl (3.4-5.0); BLOOD UREA NITROGEN 8.5 mg/dL (7-18); MAGNESIUM 2.3 mg/dL (1.8-2.4)
[2023-01-21 19:29] LABS: BILIRUBIN,TOTAL 0.3 mg/dL (0.2-1); CREATININE 0.7 mg/dL (0.55-1.3); TOT PROT 6.5 g/dl (6.4-8.2)
[2023-01-21 19:33] LABS: N-TERMINAL BNP 14.6 pg/ml (5-125)
[2023-01-21] MEDS ORDERED: ALBUTEROL SO4 2.5/IPRATROPIUM 0.5 INH SOL 3 ML VIAL.NEB. NEB ONE (20:15)
[2023-01-21] MEDS ORDERED: methylPREDNISolone NA SUCC 125 MG/2 ML VIAL IVPUSH ONE (20:23)
[2023-01-21] MEDS ORDERED: CEFTRIAXONE 1,000 MG in DEXTROSE 5%-WATER - 50 ML IVPB ONE (20:24)
[2023-01-21] MEDS ORDERED: methylPREDNISolone NA SUCC 125 MG/2 ML VIAL ONE (20:28)
[2023-01-21] MEDS ORDERED: CEFTRIAXONE 1 GM/50 ML BAG ONE (20:28)
[2023-01-21] MEDS: ALBUTEROL SO4 2.5/IPRATROPIUM 0.5 INH SOL 3 ML VIAL.NEB. NEB SCH ×3 (20:39→22:07)
[2023-01-21] MEDS ORDERED: LORATADINE 10 MG TABLET PO PRN (22:41)
[2023-01-21] MEDS ORDERED: ALBUTEROL SO4 2.5/IPRATROPIUM 0.5 INH SOL 3 ML VIAL.NEB. NEB PRN (22:41)
[2023-01-21] MEDS ORDERED: guaiFENesin/D-METHORPHAN HB 10 ML UNIT-DOSE CUPS PO PRN (22:41)
[2023-01-21] MEDS ORDERED: ALBUTEROL SO4 0.042% IH SOL 1.25 MG/3 ML VIAL.NEB NEB PRN (22:44)
[2023-01-22] MEDS: methylPREDNISolone NA SUCC 40 MG/1 ML VIAL IVPUSH SCH ×2 (01:03→10:32)
[2023-01-22 08:13] LABS: BASO % 0.4 % (0-2.0); EOS % 0.1 % (0-4.5); HEMATOCRIT 41.2 % (35.4-49); HEMOGLOBIN 13.7 GM/dL (11.7-16.9); LYMPH % 20.7 % (8-40); MCH 31.6 pg (25.7-33.7); MCHC 33.3 g/dl (32.0-35.9); MEAN PLT VOLUME 8.9 fl (7.5-11.1); MONO % 2.1 % (3.8-10.2); NEUT % 76.7 % (42.8-82.8); PLATELET COUNT 205 10^3/uL (134-434); RBC 4.34 M/mm3 (4.00-5.60); RDW 13.9 % (11.9-15.9); WHITE BLOOD COUNT 2.6 K/mm3 (4.0-10.0)
[2023-01-22 08:32] LABS: POTASSIUM 4.6 mmol/L (3.5-5.1)
[2023-01-22 08:37] LABS: CALCIUM 9.4 mg/dL (8.5-10.1)
[2023-01-22 08:38] LABS: ALBUMIN 3.5 g/dl (3.4-5.0); MAGNESIUM 2.2 mg/dL (1.8-2.4)
[2023-01-22 08:41] LABS: CREATININE 0.7 mg/dL (0.55-1.3); PHOSPHOROUS 4.4 mg/dL (2.5-4.9)
[2023-01-22 08:43] LABS: BILIRUBIN,TOTAL 0.4 mg/dL (0.2-1)
[2023-01-22] MEDS ORDERED: PATIENT'S OWN MEDICATION (NON-FORMULARY) (Tiotropium Bromide [Spiriva Handihaler] 18 MCG C PO SCH (10:00)
[2023-01-22] MEDS ORDERED: AZITHROMYCIN IVPB 500 MG in DEXTROSE 5%-WATER - 250 ML IVPB SCH (10:00)
[2023-01-22] MEDS: ENOXAPARIN NA (PORCINE) 40 MG/0.4 ML DISP.SYRIN SQ SCH (10:32)
[2023-01-22] MEDS: HYDROCHLOROTHIAZIDE 12.5 MG CAPSULE (FP) PO SCH (10:32)
[2023-01-22] MEDS: BICTEGRAV/EMTRICIT/TENOFOV (BIKTARVY) 50-200-25 MG TABLET PO SCH (10:33)
[2023-01-22] MEDS: BUDESONIDE/FORMETEROL FUMARATE 160/4.5 mcg INHALER IH SCH ×3 (10:36→21:58)
[2023-01-22 14:26] LABS: URINE APPEARANCE CLEAR; URINE COLOR YELLOW
[2023-01-22 14:27] LABS: URINE BILIRUBIN NEGATIVE (NEGATIVE); URINE GLUCOSE (UA) NEGATIVE (NEGATIVE); URINE KETONE NEGATIVE (NEGATIVE); URINE LEUK ESTERASE NEGATIVE (NEGATIVE); URINE NITRITE NEGATIVE (NEGATIVE); URINE PROTEIN NEGATIVE (NEGATIVE); URINE UROBILINOGEN 0.2 mg/dL (0.2-1.0)
[2023-01-22] MEDS: ATORVASTATIN CA 20 MG TABLET (FP) PO SCH (21:57)
[2023-01-23 07:44] LABS: HEMATOCRIT 38.8 % (35.4-49); HEMOGLOBIN 12.9 GM/dL (11.7-16.9); MCH 31.5 pg (25.7-33.7); MCHC 33.3 g/dl (32.0-35.9); MEAN CELL VOLUME 94.6 fl (80-96); MEAN PLT VOLUME 8.8 fl (7.5-11.1); PLATELET COUNT 211 10^3/uL (134-434); RDW 13.7 % (11.9-15.9); WHITE BLOOD COUNT 6.8 K/mm3 (4.0-10.0)
[2023-01-23 08:03] LABS: POTASSIUM 4.6 mmol/L (3.5-5.1)
[2023-01-23 08:14] LABS: CALCIUM 9.8 mg/dL (8.5-10.1)
[2023-01-23 08:15] LABS: BLOOD UREA NITROGEN 10.7 mg/dL (7-18)
[2023-01-23 08:17] LABS: CREATININE 0.7 mg/dL (0.55-1.3)
[2023-01-23] MEDS: ALBUTEROL SO4 2.5/IPRATROPIUM 0.5 INH SOL 3 ML VIAL.NEB. NEB SCH ×3 (08:35→20:01)
[2023-01-23] MEDS: ENOXAPARIN NA (PORCINE) 40 MG/0.4 ML DISP.SYRIN SQ SCH (09:38)
[2023-01-23] MEDS: BUDESONIDE/FORMETEROL FUMARATE 160/4.5 mcg INHALER IH SCH ×2 (09:38→21:32)
[2023-01-23] MEDS: HYDROCHLOROTHIAZIDE 12.5 MG CAPSULE (FP) PO SCH (09:38)
[2023-01-23] MEDS: BICTEGRAV/EMTRICIT/TENOFOV (BIKTARVY) 50-200-25 MG TABLET PO SCH (09:38)
[2023-01-23 10:40] VITALS: RESP 18
[2023-01-23] MEDS: ATORVASTATIN CA 20 MG TABLET (FP) PO SCH (21:32)
[2023-01-23 21:39] VITALS: BP 140/70; PULSE 67; TEMP 98
== END 2023-01-23 23:15 | disposition home or self-care (01) | DRG 312 ==
LOC: JER 17:14 → JERBED 20:24 → J4W 23:39
PROVIDERS: ADMIT Internal Medicine; ATTEND Internal Medicine
DX: I95.1 Orthostatic hypotension (principal); N13.30 Unspecified hydronephrosis; J96.11 Chronic respiratory failure with hypoxia; J43.9 Emphysema, unspecified; I10 Essential (primary) hypertension; E78.5 Hyperlipidemia, unspecified; Z21 Asymptomatic human immunodeficiency virus [HIV] infection status; N40.0 Benign prostatic hyperplasia without lower urinary tract symptoms
CPT/HCPCS: 0241U-QW; 36415; 71045-TC-FY; 71275-TC; 74176-TC; 80048; 80053; 81003; 83735; 83880; 84100; 84484; 85025; 85027; 85379; 93005; 93010; 93970-TC; 94150; 94640; 94761; 97116-GP; 97161-GP; 99285-25; Q9967

== ENCOUNTER 2023-03-03 11:08 | Inpatient (IN) | payer OTHER ==
[2023-03-03] MEDS ORDERED: methylPREDNISolone NA SUCC 125 MG/2 ML VIAL ONE (12:02)
[2023-03-03 12:20] LABS: BASO % 0.6 % (0-2.0); EOS % 0.7 % (0-4.5); HEMATOCRIT 38.3 % (35.4-49); MCH 30.4 pg (25.7-33.7); MCHC 31.4 g/dl (32.0-35.9); MEAN CELL VOLUME 96.8 fl (80-96); MEAN PLT VOLUME 8.2 fl (7.5-11.1); MONO % 9.1 % (3.8-10.2); NEUT % 78.6 % (42.8-82.8); PLATELET COUNT 212 10^3/uL (134-434); RBC 3.95 M/mm3 (4.00-5.60); RDW 13.4 % (11.9-15.9); WHITE BLOOD COUNT 8.8 K/mm3 (4.0-10.0)
[2023-03-03 12:21] LABS: VENOUS BASE EXCESS 8.3 mmol/L (-2-2); VENOUS O2 SATURATION 55.3 % (70-80); VENOUS PCO2 103.7 mmHg (38-52)
[2023-03-03 12:28] LABS: INR 0.99 (0.83-1.09); PROTHROMBIN TIME (PATIENT) 11.5 SEC (9.7-13.0); VENOUS PH 7.207 (7.310-7.410)
[2023-03-03 12:30] LABS: ACTIVATED PTT 33.5 SECONDS (25.2-36.5)
[2023-03-03] MEDS: ALBUTEROL SO4 2.5/IPRATROPIUM 0.5 INH SOL 3 ML VIAL.NEB. NEB SCH ×4 (12:44→21:52)
[2023-03-03 12:49] LABS: POTASSIUM 4.1 mmol/L (3.5-5.1)
[2023-03-03 12:51] LABS: CALCIUM 9.9 mg/dL (8.5-10.1)
[2023-03-03 12:52] LABS: ALBUMIN 3.8 g/dl (3.4-5.0)
[2023-03-03 12:55] LABS: CREATININE 0.7 mg/dL (0.55-1.3)
[2023-03-03 12:56] LABS: TOT PROT 7.1 g/dl (6.4-8.2)
[2023-03-03 12:57] LABS: BILIRUBIN,TOTAL 0.7 mg/dL (0.2-1)
[2023-03-03 13:01] LABS: N-TERMINAL BNP 31.2 pg/ml (5-125)
[2023-03-03 13:16] LABS: MAGNESIUM 2.4 mg/dL (1.8-2.4)
[2023-03-03] MEDS ORDERED: LORATADINE 10 MG TABLET PO PRN (14:53)
[2023-03-03] MEDS: HEPARIN NA (PORCINE) 5,000 UNITS/ML 1ML VIAL SQ SCH (21:20)
[2023-03-03] MEDS: ATORVASTATIN CA 20 MG TABLET (FP) PO SCH (21:20)
[2023-03-03] MEDS: BUDESONIDE/FORMETEROL FUMARATE 160/4.5 mcg INHALER IH SCH (21:20)
[2023-03-04] MEDS: ALBUTEROL SO4 2.5/IPRATROPIUM 0.5 INH SOL 3 ML VIAL.NEB. NEB SCH ×3 (01:00→07:13)
[2023-03-04 02:44] VITALS: BMI 30.9
[2023-03-04 07:33] LABS: ALLENS TEST POSITIVE; ARTERIAL BLD GAS O2 SATURATION 98.5 % (95-98); ARTERIAL BLOOD GAS BASE EXCESS 12.9 mmol/L (-2-2); ARTERIAL BLOOD GAS PO2 148.4 mmHg (80-100); ARTERIAL BLOOD GAS pH 7.283 (7.350-7.450)
[2023-03-04 07:55] LABS: EOS % 3.5 % (0-4.5); HEMATOCRIT 35.6 % (35.4-49); HEMOGLOBIN 11.2 GM/dL (11.7-16.9); LYMPH % 30.7 % (8-40); MCH 30.3 pg (25.7-33.7); MCHC 31.5 g/dl (32.0-35.9); MEAN CELL VOLUME 96.4 fl (80-96); MEAN PLT VOLUME 8.7 fl (7.5-11.1); MONO % 14.1 % (3.8-10.2); NEUT % 50.7 % (42.8-82.8); PLATELET COUNT 207 10^3/uL (134-434); RBC 3.69 M/mm3 (4.00-5.60); RDW 13.2 % (11.9-15.9); WHITE BLOOD COUNT 5.4 K/mm3 (4.0-10.0)
[2023-03-04 08:14] LABS: POTASSIUM 4.4 mmol/L (3.5-5.1)
[2023-03-04 08:25] LABS: BLOOD UREA NITROGEN 17.5 mg/dL (7-18)
[2023-03-04 08:29] LABS: CALCIUM 9.8 mg/dL (8.5-10.1); CREATININE 0.7 mg/dL (0.55-1.3)
[2023-03-04] MEDS: HEPARIN NA (PORCINE) 5,000 UNITS/ML 1ML VIAL SQ SCH (09:14)
[2023-03-04] MEDS: HYDROCHLOROTHIAZIDE 12.5 MG CAPSULE (FP) PO SCH (09:14)
[2023-03-04] MEDS: BICTEGRAV/EMTRICIT/TENOFOV (BIKTARVY) 50-200-25 MG TABLET PO SCH (09:14)
[2023-03-04] MEDS: BUDESONIDE/FORMETEROL FUMARATE 160/4.5 mcg INHALER IH SCH ×2 (09:15→21:30)
[2023-03-04] MEDS ORDERED: predniSONE 20 MG TABLET (UD) PO SCH (10:00)
[2023-03-04] MEDS ORDERED: ALBUTEROL SO4 0.083% IH SOL 2.5 MG/3 ML VIAL.NEB. NEB PRN ×3 (10:52→10:53)
[2023-03-04] MEDS: TIOTROPIUM BROMIDE 2.5 MCG (SPIRIVA) RESPIMAT INHALER IH SCH (11:57)
[2023-03-04] MEDS: methylPREDNISolone NA SUCC 40 MG/1 ML VIAL IVPUSH SCH (17:06)
[2023-03-04] MEDS: ATORVASTATIN CA 20 MG TABLET (FP) PO SCH (21:30)
[2023-03-05] MEDS: methylPREDNISolone NA SUCC 40 MG/1 ML VIAL IVPUSH SCH ×3 (01:26→17:00)
[2023-03-05 07:31] LABS: BASO % 0.1 % (0-2.0); HEMATOCRIT 35.5 % (35.4-49); HEMOGLOBIN 11.2 GM/dL (11.7-16.9); LYMPH % 10.9 % (8-40); MCHC 31.6 g/dl (32.0-35.9); MEAN CELL VOLUME 94.9 fl (80-96); MEAN PLT VOLUME 8.7 fl (7.5-11.1); MONO % 2.4 % (3.8-10.2); NEUT % 86.6 % (42.8-82.8); PLATELET COUNT 210 10^3/uL (134-434); RBC 3.74 M/mm3 (4.00-5.60); RDW 13.3 % (11.9-15.9); WHITE BLOOD COUNT 4.6 K/mm3 (4.0-10.0)
[2023-03-05 08:00] LABS: POTASSIUM 4.1 mmol/L (3.5-5.1)
[2023-03-05 08:10] LABS: BLOOD UREA NITROGEN 13.2 mg/dL (7-18); CALCIUM 9.7 mg/dL (8.5-10.1); MAGNESIUM 2.2 mg/dL (1.8-2.4)
[2023-03-05 08:13] LABS: CREATININE 0.6 mg/dL (0.55-1.3)
[2023-03-05 08:14] LABS: PHOSPHOROUS 3.3 mg/dL (2.5-4.9)
[2023-03-05 08:15] LABS: BILIRUBIN,TOTAL 0.8 mg/dL (0.2-1)
[2023-03-05 09:03] LABS: ARTERIAL BLD GAS O2 SATURATION 94.8 % (95-98); ARTERIAL BLOOD GAS BASE EXCESS 11.4 mmol/L (-2-2); ARTERIAL BLOOD GAS pH 7.344 (7.350-7.450)
[2023-03-05 09:04] LABS: ALLENS TEST POSITIVE
[2023-03-05] MEDS: HYDROCHLOROTHIAZIDE 12.5 MG CAPSULE (FP) PO SCH (09:07)
[2023-03-05] MEDS: BICTEGRAV/EMTRICIT/TENOFOV (BIKTARVY) 50-200-25 MG TABLET PO SCH (09:07)
[2023-03-05] MEDS: TIOTROPIUM BROMIDE 2.5 MCG (SPIRIVA) RESPIMAT INHALER IH SCH (09:08)
[2023-03-05] MEDS: BUDESONIDE/FORMETEROL FUMARATE 160/4.5 mcg INHALER IH SCH ×2 (09:15→21:19)
[2023-03-05] MEDS: ENOXAPARIN NA (PORCINE) 40 MG/0.4 ML DISP.SYRIN SQ SCH (09:49)
[2023-03-05] MEDS: ATORVASTATIN CA 20 MG TABLET (FP) PO SCH (21:19)
[2023-03-06] MEDS: methylPREDNISolone NA SUCC 40 MG/1 ML VIAL IVPUSH SCH ×3 (01:16→17:05)
[2023-03-06 08:06] LABS: BASO % 0.1 % (0-2.0); HEMATOCRIT 37.5 % (35.4-49); HEMOGLOBIN 11.6 GM/dL (11.7-16.9); LYMPH % 12.6 % (8-40); MCH 29.7 pg (25.7-33.7); MEAN CELL VOLUME 95.8 fl (80-96); MEAN PLT VOLUME 8.7 fl (7.5-11.1); MONO % 5.5 % (3.8-10.2); NEUT % 81.8 % (42.8-82.8); PLATELET COUNT 237 10^3/uL (134-434); RBC 3.91 M/mm3 (4.00-5.60); RDW 13.4 % (11.9-15.9)
[2023-03-06 08:24] LABS: POTASSIUM 4.2 mmol/L (3.5-5.1)
[2023-03-06 08:39] LABS: BLOOD UREA NITROGEN 18.8 mg/dL (7-18)
[2023-03-06 08:40] LABS: ALBUMIN 3.3 g/dl (3.4-5.0); CALCIUM 10.2 mg/dL (8.5-10.1); MAGNESIUM 2.3 mg/dL (1.8-2.4)
[2023-03-06 08:46] LABS: CREATININE 0.7 mg/dL (0.55-1.3); PHOSPHOROUS 3.5 mg/dL (2.5-4.9)
[2023-03-06 08:47] LABS: BILIRUBIN,TOTAL 0.9 mg/dL (0.2-1); TOT PROT 6.5 g/dl (6.4-8.2)
[2023-03-06] MEDS: BICTEGRAV/EMTRICIT/TENOFOV (BIKTARVY) 50-200-25 MG TABLET PO SCH (09:19)
[2023-03-06] MEDS: ENOXAPARIN NA (PORCINE) 40 MG/0.4 ML DISP.SYRIN SQ SCH (09:19)
[2023-03-06] MEDS: HYDROCHLOROTHIAZIDE 12.5 MG CAPSULE (FP) PO SCH (09:19)
[2023-03-06] MEDS: BUDESONIDE/FORMETEROL FUMARATE 160/4.5 mcg INHALER IH SCH ×2 (09:20→21:14)
[2023-03-06] MEDS: TIOTROPIUM BROMIDE 2.5 MCG (SPIRIVA) RESPIMAT INHALER IH SCH (09:20)
[2023-03-06] MEDS: ATORVASTATIN CA 20 MG TABLET (FP) PO SCH (21:10)
[2023-03-07] MEDS: methylPREDNISolone NA SUCC 40 MG/1 ML VIAL IVPUSH SCH ×3 (01:41→17:32)
[2023-03-07 07:18] LABS: HEMATOCRIT 35.1 % (35.4-49); HEMOGLOBIN 11.3 GM/dL (11.7-16.9); MCH 30.6 pg (25.7-33.7); MCHC 32.2 g/dl (32.0-35.9); MEAN CELL VOLUME 95.1 fl (80-96); MEAN PLT VOLUME 8.8 fl (7.5-11.1); PLATELET COUNT 221 10^3/uL (134-434); RBC 3.69 M/mm3 (4.00-5.60); RDW 13.3 % (11.9-15.9); WHITE BLOOD COUNT 7.1 K/mm3 (4.0-10.0)
[2023-03-07 07:31] LABS: POTASSIUM 4.2 mmol/L (3.5-5.1)
[2023-03-07 07:32] LABS: ALBUMIN 3.3 g/dl (3.4-5.0); BLOOD UREA NITROGEN 23.7 mg/dL (7-18); CALCIUM 9.8 mg/dL (8.5-10.1); MAGNESIUM 2.3 mg/dL (1.8-2.4)
[2023-03-07 07:35] LABS: CREATININE 0.8 mg/dL (0.55-1.3); PHOSPHOROUS 2.9 mg/dL (2.5-4.9)
[2023-03-07 07:37] LABS: BILIRUBIN,TOTAL 0.4 mg/dL (0.2-1); TOT PROT 6.1 g/dl (6.4-8.2)
[2023-03-07] MEDS: BICTEGRAV/EMTRICIT/TENOFOV (BIKTARVY) 50-200-25 MG TABLET PO SCH (09:03)
[2023-03-07] MEDS: HYDROCHLOROTHIAZIDE 12.5 MG CAPSULE (FP) PO SCH (09:03)
[2023-03-07] MEDS: ENOXAPARIN NA (PORCINE) 40 MG/0.4 ML DISP.SYRIN SQ SCH (09:03)
[2023-03-07] MEDS: BUDESONIDE/FORMETEROL FUMARATE 160/4.5 mcg INHALER IH SCH (09:05)
[2023-03-07] MEDS: TIOTROPIUM BROMIDE 2.5 MCG (SPIRIVA) RESPIMAT INHALER IH SCH (09:05)
[2023-03-07 09:18] VITALS: RESP 18
[2023-03-07 15:12] VITALS: BP 142/81; PULSE 70; TEMP 98
== END 2023-03-07 20:27 | disposition home or self-care (01) | DRG 189 ==
LOC: JER 11:08 → JERBED 14:22 → J4S 17:59 → OBSVTOIN 03-05 15:25
PROVIDERS: ADMIT Internal Medicine; ATTEND Internal Medicine
DX: J96.22 Acute and chronic respiratory failure with hypercapnia (principal); J44.1 Chronic obstructive pulmonary disease with (acute) exacerbation; J96.21 Acute and chronic respiratory failure with hypoxia; Z21 Asymptomatic human immunodeficiency virus [HIV] infection status; I10 Essential (primary) hypertension; Z85.118 Personal history of other malignant neoplasm of bronchus and lung; N43.3 Hydrocele, unspecified; N40.0 Benign prostatic hyperplasia without lower urinary tract symptoms
CPT/HCPCS: 0241U-QW; 36415; 36600; 71045-TC-FY; 76870-TC; 80048; 80053; 82803; 83735; 83880; 84100; 84484; 85025; 85027; 85610; 85730; 93005; 93010; 94640; 94660; 97116-GP; 97162-GP; 99285-25; G0378; J1644

== ENCOUNTER 2023-03-29 23:13 | Inpatient (IN) | payer OTHER ==
[2023-03-29] MEDS ORDERED: MAGNESIUM SULF 50% (8.12 MEQ/2 ML-1 GM VIAL) IVPB ONE (23:17)
[2023-03-29] MEDS ORDERED: MAGNESIUM SULFATE IN WATER 2 GM/50 ML IVPB IVPB ONE (23:19)
[2023-03-30] MEDS: ALBUTEROL SO4 2.5/IPRATROPIUM 0.5 INH SOL 3 ML VIAL.NEB. NEB SCH ×2 (00:03→04:01)
[2023-03-30 00:11] LABS: VENOUS BASE EXCESS 6.8 mmol/L (-2-2); VENOUS O2 SATURATION 83.4 % (70-80)
[2023-03-30 00:17] LABS: VENOUS PH 7.185 (7.310-7.410)
[2023-03-30 01:42] LABS: BASO % 0.7 % (0-2.0); EOS % 2.1 % (0-4.5); HEMATOCRIT 36.9 % (35.4-49); LYMPH % 48.5 % (8-40); MCH 30.6 pg (25.7-33.7); MCHC 32.5 g/dl (32.0-35.9); MEAN CELL VOLUME 94.2 fl (80-96); MEAN PLT VOLUME 8.5 fl (7.5-11.1); MONO % 10.3 % (3.8-10.2); NEUT % 38.4 % (42.8-82.8); PLATELET COUNT 201 10^3/uL (134-434); RBC 3.92 M/mm3 (4.00-5.60); RDW 13.3 % (11.9-15.9); WHITE BLOOD COUNT 6.9 K/mm3 (4.0-10.0)
[2023-03-30 01:44] LABS: VENOUS BASE EXCESS 6.7 mmol/L (-2-2); VENOUS O2 SATURATION 61.1 % (70-80); VENOUS PH 7.2 (7.310-7.410)
[2023-03-30 01:46] LABS: VENOUS PCO2 99.4 mmHg (38-52)
[2023-03-30 02:02] LABS: MAGNESIUM 2.9 mg/dL (1.8-2.4)
[2023-03-30 02:09] LABS: POTASSIUM 5.6 mmol/L (3.5-5.1)
[2023-03-30 02:10] LABS: N-TERMINAL BNP 10.6 pg/ml (5-125)
[2023-03-30 02:11] LABS: CALCIUM 9.3 mg/dL (8.5-10.1)
[2023-03-30 02:12] LABS: ALBUMIN 3.6 g/dl (3.4-5.0); BLOOD UREA NITROGEN 11.7 mg/dL (7-18)
[2023-03-30 02:15] LABS: CREATININE 0.8 mg/dL (0.55-1.3)
[2023-03-30 02:16] LABS: BILIRUBIN,TOTAL 0.6 mg/dL (0.2-1)
[2023-03-30 04:24] LABS: VENOUS BASE EXCESS 10.2 mmol/L (-2-2); VENOUS O2 SATURATION 36.4 % (70-80); VENOUS PH 7.225 (7.310-7.410)
[2023-03-30 04:28] LABS: VENOUS PCO2 103.8 mmHg (38-52)
[2023-03-30 04:42] LABS: CHLORIDE 99 mmol/L (98-107); SODIUM 141 mmol/L (136-145)
[2023-03-30 04:43] LABS: CALCIUM 9.2 mg/dL (8.5-10.1)
[2023-03-30 04:44] LABS: BLOOD UREA NITROGEN 12.6 mg/dL (7-18); CO2 42 mmol/L (21-32); GLUCOSE,RANDOM 120 mg/dL (74-106); MAGNESIUM 2.5 mg/dL (1.8-2.4)
[2023-03-30 04:47] LABS: CREATININE 0.8 mg/dL (0.55-1.3)
[2023-03-30 04:52] LABS: ANION GAP 0 MMOL/L (8-16); POTASSIUM 6.9 mmol/L (3.5-5.1)
[2023-03-30] MEDS ORDERED: CALCIUM GLUCONATE 10% - 1,000 MG/10 ML VIAL IVPUSH ONE (04:55)
[2023-03-30] MEDS ORDERED: SODIUM CHLORIDE 0.9% 500 ML INFUS.BAG IV ONE (04:58)
[2023-03-30 06:05] LABS: POTASSIUM 5.6 mmol/L (3.5-5.1)
[2023-03-30 06:07] LABS: CALCIUM 8.9 mg/dL (8.5-10.1)
[2023-03-30 06:08] LABS: BLOOD UREA NITROGEN 12.3 mg/dL (7-18)
[2023-03-30 06:11] LABS: CREATININE 0.7 mg/dL (0.55-1.3)
[2023-03-30] MEDS ORDERED: CALCIUM GLUC IN NACL, ISO-OSM 1 GM/50 ML BAG IVPB ONE (06:34)
[2023-03-30] MEDS ORDERED: ALBUTEROL SO4 HFA INHALER IH PRN (09:00)
[2023-03-30] MEDS ORDERED: ACETAMINOPHEN 500 MG TABLET (FP) PO PRN (09:08)
[2023-03-30] MEDS ORDERED: methylPREDNISolone NA SUCC 125 MG/2 ML VIAL IM ONE (09:09)
[2023-03-30] MEDS ORDERED: HYDROCHLOROTHIAZIDE 25 MG TABLET (FP) ONE (09:50)
[2023-03-30] MEDS ORDERED: HEPARIN NA (PORCINE) 5,000 UNITS/ML 1ML VIAL ONE ×2 (09:51→22:15)
[2023-03-30] MEDS ORDERED: CHOLECALCIFEROL (VIT D3) 1,000 UNIT (25 MCG) TABLET ONE (09:51)
[2023-03-30] MEDS ORDERED: SODIUM ZIRCONIUM CYCLOSILICATE (LOKELMA) 5 GM PACKET ONE (09:51)
[2023-03-30] MEDS ORDERED: methylPREDNISolone NA SUCC 125 MG/2 ML VIAL ONE (09:52)
[2023-03-30] MEDS ORDERED: AZITHROMYCIN IVPB 500 MG/250 ML BAG IVPB ONE (09:52)
[2023-03-30] MEDS ORDERED: PANTOPRAZOLE 20 MG TABLET PO ONE (09:55)
[2023-03-30] MEDS: HYDROCHLOROTHIAZIDE 12.5 MG CAPSULE (FP) PO SCH (10:13)
[2023-03-30] MEDS: HEPARIN NA (PORCINE) 5,000 UNITS/ML 1ML VIAL SQ SCH ×2 (10:13→23:10)
[2023-03-30] MEDS: SODIUM ZIRCONIUM CYCLOSILICATE (LOKELMA) 5 GM PACKET PO SCH (10:13)
[2023-03-30] MEDS: PANTOPRAZOLE 20 MG TABLET PO SCH (10:13)
[2023-03-30] MEDS: CHOLECALCIFEROL (VIT D3) 1,000 UNIT (25 MCG) TABLET PO SCH (10:14)
[2023-03-30] MEDS: BUDESONIDE/FORMETEROL FUMARATE 160/4.5 mcg INHALER IH SCH ×2 (10:14→23:10)
[2023-03-30] MEDS: AZITHROMYCIN IVPB 500 MG in DEXTROSE 5%-WATER - 250 ML IVPB SCH (10:14)
[2023-03-30] MEDS ORDERED: methylPREDNISolone NA SUCC 40 MG/1 ML VIAL ONE ×2 (14:33→22:15)
[2023-03-30] MEDS ORDERED: methylPREDNISolone NA SUCC 40 MG/1 ML VIAL IVPUSH SCH (15:00)
[2023-03-30] MEDS ORDERED: ALBUTEROL SO4 2.5/IPRATROPIUM 0.5 INH SOL 3 ML VIAL.NEB. NEB ONE (15:29)
[2023-03-30] MEDS: ALBUTEROL SO4 2.5/IPRATROPIUM 0.5 INH SOL 3 ML VIAL.NEB. NEB PRN (15:33)
[2023-03-30] MEDS ORDERED: ATORVASTATIN CA 20 MG TABLET (FP) ONE (22:15)
[2023-03-30] MEDS: ATORVASTATIN CA 20 MG TABLET (FP) PO SCH (23:10)
[2023-03-30] MEDS: methylPREDNISolone NA SUCC 40 MG/1 ML VIAL IVPUSH SCH (23:10)
[2023-03-31] MEDS ORDERED: methylPREDNISolone NA SUCC 40 MG/1 ML VIAL ONE ×3 (04:02→17:36)
[2023-03-31] MEDS: methylPREDNISolone NA SUCC 40 MG/1 ML VIAL IVPUSH SCH ×3 (04:09→17:44)
[2023-03-31 08:57] LABS: POTASSIUM 4.6 mmol/L (3.5-5.1)
[2023-03-31 09:02] LABS: ALBUMIN 3.3 g/dl (3.4-5.0); BLOOD UREA NITROGEN 17.3 mg/dL (7-18); CALCIUM 9.2 mg/dL (8.5-10.1)
[2023-03-31 09:06] LABS: BILIRUBIN,TOTAL 0.6 mg/dL (0.2-1); CREATININE 0.8 mg/dL (0.55-1.3); TOT PROT 6.4 g/dl (6.4-8.2)
[2023-03-31 09:25] LABS: BASO % 0.7 % (0-2.0); EOS % 0.1 % (0-4.5); HEMATOCRIT 35.8 % (35.4-49); HEMOGLOBIN 11.9 GM/dL (11.7-16.9); LYMPH % 11.9 % (8-40); MCH 30.9 pg (25.7-33.7); MCHC 33.2 g/dl (32.0-35.9); MEAN PLT VOLUME 8.3 fl (7.5-11.1); MONO % 3.7 % (3.8-10.2); NEUT % 83.6 % (42.8-82.8); PLATELET COUNT 204 10^3/uL (134-434); RBC 3.84 M/mm3 (4.00-5.60); RDW 13.2 % (11.9-15.9); WHITE BLOOD COUNT 8.3 K/mm3 (4.0-10.0)
[2023-03-31] MEDS ORDERED: FLUTICASONE/UMECLIDIN/VILANTER(200-62.5-25 TRELEGY ELLIPTA) INAHLER IH SCH (10:00)
[2023-03-31] MEDS ORDERED: CHOLECALCIFEROL (VIT D3) 1,000 UNIT (25 MCG) TABLET ONE (10:23)
[2023-03-31] MEDS ORDERED: SODIUM ZIRCONIUM CYCLOSILICATE (LOKELMA) 5 GM PACKET ONE (10:23)
[2023-03-31] MEDS ORDERED: PANTOPRAZOLE 20 MG TABLET PO ONE (10:23)
[2023-03-31] MEDS ORDERED: HEPARIN NA (PORCINE) 5,000 UNITS/ML 1ML VIAL ONE (10:23)
[2023-03-31] MEDS ORDERED: AZITHROMYCIN IVPB 500 MG/250 ML BAG IVPB ONE (10:24)
[2023-03-31] MEDS ORDERED: HYDROCHLOROTHIAZIDE 25 MG TABLET (FP) ONE (10:26)
[2023-03-31] MEDS: SODIUM ZIRCONIUM CYCLOSILICATE (LOKELMA) 5 GM PACKET PO SCH (10:43)
[2023-03-31] MEDS: HEPARIN NA (PORCINE) 5,000 UNITS/ML 1ML VIAL SQ SCH ×2 (10:43→21:43)
[2023-03-31] MEDS: AZITHROMYCIN IVPB 500 MG in DEXTROSE 5%-WATER - 250 ML IVPB SCH (10:43)
[2023-03-31] MEDS: PANTOPRAZOLE 20 MG TABLET PO SCH (10:43)
[2023-03-31] MEDS: HYDROCHLOROTHIAZIDE 12.5 MG CAPSULE (FP) PO SCH (10:43)
[2023-03-31] MEDS: CHOLECALCIFEROL (VIT D3) 1,000 UNIT (25 MCG) TABLET PO SCH (10:43)
[2023-03-31] MEDS ORDERED: ALBUTEROL SO4 2.5/IPRATROPIUM 0.5 INH SOL 3 ML VIAL.NEB. NEB ONE ×2 (10:44→15:37)
[2023-03-31] MEDS: ALBUTEROL SO4 2.5/IPRATROPIUM 0.5 INH SOL 3 ML VIAL.NEB. NEB PRN (10:47)
[2023-03-31] MEDS: BICTEGRAV/EMTRICIT/TENOFOV (BIKTARVY) 50-200-25 MG TABLET PO SCH (12:48)
[2023-03-31] MEDS: BUDESONIDE/FORMETEROL FUMARATE 160/4.5 mcg INHALER IH SCH ×2 (12:50→21:46)
[2023-03-31] MEDS ORDERED: ALBUTEROL SO4 2.5/IPRATROPIUM 0.5 INH SOL 3 ML VIAL.NEB. NEB SCH (13:00)
[2023-03-31] MEDS: ALBUTEROL SO4 2.5/IPRATROPIUM 0.5 INH SOL 3 ML VIAL.NEB. NEB SCH ×2 (15:43→20:09)
[2023-03-31 19:08] LABS: ARTERIAL BLD GAS O2 SATURATION 98.5 % (95-98); ARTERIAL BLOOD GAS BASE EXCESS 8.6 mmol/L (-2-2); ARTERIAL BLOOD GAS PO2 134.5 mmHg (80-100); ARTERIAL BLOOD GAS pH 7.362 (7.350-7.450)
[2023-03-31 19:12] LABS: ALLENS TEST POSITIVE
[2023-03-31] MEDS: ATORVASTATIN CA 20 MG TABLET (FP) PO SCH (21:43)
[2023-03-31 23:29] VITALS: BMI 24.5
[2023-04-01] MEDS: methylPREDNISolone NA SUCC 40 MG/1 ML VIAL IVPUSH SCH ×3 (03:27→19:15)
[2023-04-01] MEDS: ALBUTEROL SO4 2.5/IPRATROPIUM 0.5 INH SOL 3 ML VIAL.NEB. NEB SCH (08:12)
[2023-04-01] MEDS ORDERED: ALBUTEROL SO4 0.083% IH SOL 2.5 MG/3 ML VIAL.NEB. NEB PRN (10:47)
[2023-04-01] MEDS: HEPARIN NA (PORCINE) 5,000 UNITS/ML 1ML VIAL SQ SCH ×2 (13:13→21:42)
[2023-04-01] MEDS: BICTEGRAV/EMTRICIT/TENOFOV (BIKTARVY) 50-200-25 MG TABLET PO SCH (13:14)
[2023-04-01] MEDS: PANTOPRAZOLE 20 MG TABLET PO SCH (13:14)
[2023-04-01] MEDS: HYDROCHLOROTHIAZIDE 12.5 MG CAPSULE (FP) PO SCH (13:14)
[2023-04-01] MEDS: CHOLECALCIFEROL (VIT D3) 1,000 UNIT (25 MCG) TABLET PO SCH (13:14)
[2023-04-01] MEDS: SODIUM ZIRCONIUM CYCLOSILICATE (LOKELMA) 5 GM PACKET PO SCH (13:15)
[2023-04-01] MEDS: TIOTROPIUM BROMIDE 2.5 MCG (SPIRIVA) RESPIMAT INHALER IH SCH (13:16)
[2023-04-01] MEDS: BUDESONIDE/FORMETEROL FUMARATE 160/4.5 mcg INHALER IH SCH ×3 (13:21→23:23)
[2023-04-01] MEDS: ALBUTEROL SO4 0.083% IH SOL 2.5 MG/3 ML VIAL.NEB. NEB SCH ×2 (13:38→20:12)
[2023-04-01 15:38] LABS: BASO % 0.2 % (0-2.0); HEMATOCRIT 35.1 % (35.4-49); HEMOGLOBIN 11.5 GM/dL (11.7-16.9); LYMPH % 9.5 % (8-40); MCH 30.6 pg (25.7-33.7); MCHC 32.8 g/dl (32.0-35.9); MEAN CELL VOLUME 93.1 fl (80-96); MONO % 7.4 % (3.8-10.2); NEUT % 82.9 % (42.8-82.8); PLATELET COUNT 222 10^3/uL (134-434); RBC 3.77 M/mm3 (4.00-5.60); RDW 13.4 % (11.9-15.9); WHITE BLOOD COUNT 7.6 K/mm3 (4.0-10.0)
[2023-04-01 16:16] LABS: POTASSIUM 4.1 mmol/L (3.5-5.1)
[2023-04-01 16:19] LABS: ALBUMIN 3.3 g/dl (3.4-5.0); BLOOD UREA NITROGEN 17.6 mg/dL (7-18)
[2023-04-01 16:22] LABS: CREATININE 0.8 mg/dL (0.55-1.3)
[2023-04-01 16:23] LABS: BILIRUBIN,TOTAL 0.4 mg/dL (0.2-1); TOT PROT 6.1 g/dl (6.4-8.2)
[2023-04-01] MEDS: AZITHROMYCIN IVPB 500 MG in DEXTROSE 5%-WATER - 250 ML IVPB SCH (16:51)
[2023-04-01] MEDS: ATORVASTATIN CA 20 MG TABLET (FP) PO SCH (21:42)
[2023-04-01] MEDS ORDERED: guaiFENesin 200 MG/10 ML 10 ML UNIT-DOSE CUPS PO ONE (22:14)
[2023-04-02] MEDS: methylPREDNISolone NA SUCC 40 MG/1 ML VIAL IVPUSH SCH ×3 (01:50→17:34)
[2023-04-02] MEDS ORDERED: guaiFENesin 200 MG/10 ML 10 ML UNIT-DOSE CUPS PO PRN (04:00)
[2023-04-02] MEDS: ALBUTEROL SO4 0.083% IH SOL 2.5 MG/3 ML VIAL.NEB. NEB SCH ×3 (07:49→19:45)
[2023-04-02] MEDS: CHOLECALCIFEROL (VIT D3) 1,000 UNIT (25 MCG) TABLET PO SCH (09:17)
[2023-04-02] MEDS: HEPARIN NA (PORCINE) 5,000 UNITS/ML 1ML VIAL SQ SCH ×2 (09:17→21:38)
[2023-04-02] MEDS: HYDROCHLOROTHIAZIDE 12.5 MG CAPSULE (FP) PO SCH (09:17)
[2023-04-02] MEDS: PANTOPRAZOLE 20 MG TABLET PO SCH (09:17)
[2023-04-02] MEDS: SODIUM ZIRCONIUM CYCLOSILICATE (LOKELMA) 5 GM PACKET PO SCH (09:17)
[2023-04-02] MEDS: BICTEGRAV/EMTRICIT/TENOFOV (BIKTARVY) 50-200-25 MG TABLET PO SCH (09:17)
[2023-04-02] MEDS: TIOTROPIUM BROMIDE 2.5 MCG (SPIRIVA) RESPIMAT INHALER IH SCH (09:18)
[2023-04-02] MEDS: BUDESONIDE/FORMETEROL FUMARATE 160/4.5 mcg INHALER IH SCH ×2 (09:19→21:38)
[2023-04-02] MEDS ORDERED: AZITHROMYCIN IVPB 500 MG/250 ML BAG IVPB SCH (10:31)
[2023-04-02] MEDS: AZITHROMYCIN IVPB 500 MG in DEXTROSE 5%-WATER - 250 ML IVPB SCH (10:38)
[2023-04-02] MEDS: ATORVASTATIN CA 20 MG TABLET (FP) PO SCH (21:38)
[2023-04-02 22:41] VITALS: BP 145/80; PULSE 77; RESP 18; TEMP 97.8
== END 2023-04-03 00:40 | disposition home or self-care (01) | DRG 190 ==
LOC: JER 23:13 → JERBED 03-30 01:01 → J8W 03-31 15:15
PROVIDERS: ADMIT Internal Medicine; ATTEND Nurse Practitioner Family
DX: J44.1 Chronic obstructive pulmonary disease with (acute) exacerbation (principal); J96.21 Acute and chronic respiratory failure with hypoxia; J96.22 Acute and chronic respiratory failure with hypercapnia; Z99.81 Dependence on supplemental oxygen; E78.5 Hyperlipidemia, unspecified; E87.5 Hyperkalemia; Z21 Asymptomatic human immunodeficiency virus [HIV] infection status; N43.3 Hydrocele, unspecified; R73.9 Hyperglycemia, unspecified
CPT/HCPCS: 36415; 36600; 71045-TC-FY; 80048; 80053; 80061; 82803; 82962; 83036; 83735; 83880; 84484; 85025; 87040; 93005; 93010; 94640; 94660; 99285-25; J1644

== ENCOUNTER 2023-04-08 09:38 | Observation (INO) | payer OTHER ==
[2023-04-08] MEDS ORDERED: methylPREDNISolone NA SUCC 125 MG/2 ML VIAL IVPUSH ONE (10:12)
[2023-04-08] MEDS ORDERED: ALBUTEROL SO4 2.5/IPRATROPIUM 0.5 INH SOL 3 ML VIAL.NEB. NEB ONE ×2 (10:23→11:36)
[2023-04-08] MEDS ORDERED: methylPREDNISolone NA SUCC 125 MG/2 ML VIAL ONE (10:32)
[2023-04-08 12:14] LABS: HEMOGLOBIN 11.1 GM/dL (11.7-16.9); MCH 29.7 pg (25.7-33.7); MCHC 30.9 g/dl (32.0-35.9); MEAN CELL VOLUME 96.1 fl (80-96); MEAN PLT VOLUME 8.7 fl (7.5-11.1); PLATELET COUNT 248 10^3/uL (134-434); RBC 3.74 M/mm3 (4.00-5.60); RDW 13.4 % (11.9-15.9); WHITE BLOOD COUNT 11.9 K/mm3 (4.0-10.0)
[2023-04-08 12:15] LABS: POTASSIUM 4.1 mmol/L (3.5-5.1)
[2023-04-08 12:18] LABS: ALBUMIN 3.6 g/dl (3.4-5.0); BLOOD UREA NITROGEN 15.6 mg/dL (7-18); CALCIUM 9.8 mg/dL (8.5-10.1)
[2023-04-08 12:21] LABS: CREATININE 0.7 mg/dL (0.55-1.3)
[2023-04-08 12:22] LABS: BILIRUBIN,TOTAL 0.2 mg/dL (0.2-1); TOT PROT 6.5 g/dl (6.4-8.2)
[2023-04-08 12:45] LABS: ANISOCYTOSIS 0; HELMET CELLS 0; HOWELL-JOLLY BODIES 0; MACROCYTOSIS 0; OVALOCYTE 0; ROULEAU 0; SICKELED CELLS 0; TARGET CELLS 0; TEAR DROP CELLS 0; TOXIC GRANULATION 0
[2023-04-08] MEDS ORDERED: ASPIRIN 81 MG CHEWABLE TABLETS PO ONE (15:27)
[2023-04-08] MEDS ORDERED: ASPIRIN 325 MG TABLET ONE (15:42)
[2023-04-08] MEDS ORDERED: ALBUTEROL SO4 0.083% IH SOL 2.5 MG/3 ML VIAL.NEB. NEB PRN (17:12)
[2023-04-08] MEDS: ALBUTEROL SO4 2.5/IPRATROPIUM 0.5 INH SOL 3 ML VIAL.NEB. NEB SCH (20:35)
[2023-04-08] MEDS: ATORVASTATIN CA 20 MG TABLET (FP) PO SCH (22:05)
[2023-04-08] MEDS: FLUTICASONE/UMECLIDIN/VILANTER(200-62.5-25 TRELEGY ELLIPTA) INAHLER IH SCH (23:07)
[2023-04-08 23:35] VITALS: BMI 21.2
[2023-04-09 08:01] LABS: BASO % 0.4 % (0-2.0); HEMATOCRIT 35.6 % (35.4-49); LYMPH % 10.5 % (8-40); MCH 29.8 pg (25.7-33.7); MCHC 30.9 g/dl (32.0-35.9); MEAN CELL VOLUME 96.3 fl (80-96); MEAN PLT VOLUME 9.1 fl (7.5-11.1); MONO % 10.4 % (3.8-10.2); NEUT % 78.7 % (42.8-82.8); PLATELET COUNT 218 10^3/uL (134-434); RDW 13.7 % (11.9-15.9); WHITE BLOOD COUNT 13.2 K/mm3 (4.0-10.0)
[2023-04-09 08:19] LABS: POTASSIUM 4.9 mmol/L (3.5-5.1)
[2023-04-09 08:25] LABS: ALBUMIN 3.2 g/dl (3.4-5.0); CALCIUM 9.6 mg/dL (8.5-10.1)
[2023-04-09 08:26] LABS: BLOOD UREA NITROGEN 17.3 mg/dL (7-18); MAGNESIUM 2.3 mg/dL (1.8-2.4)
[2023-04-09 08:28] LABS: CREATININE 0.7 mg/dL (0.55-1.3)
[2023-04-09 08:29] LABS: PHOSPHOROUS 3.3 mg/dL (2.5-4.9)
[2023-04-09 08:30] LABS: BILIRUBIN,TOTAL 0.6 mg/dL (0.2-1); TOT PROT 5.8 g/dl (6.4-8.2)
[2023-04-09] MEDS: ALBUTEROL SO4 2.5/IPRATROPIUM 0.5 INH SOL 3 ML VIAL.NEB. NEB SCH ×4 (09:08→20:30)
[2023-04-09] MEDS ORDERED: ENOXAPARIN NA (PORCINE) 40 MG/0.4 ML DISP.SYRIN SQ SCH (10:00)
[2023-04-09] MEDS ORDERED: PANTOPRAZOLE 20 MG TABLET PO SCH (10:00)
[2023-04-09] MEDS ORDERED: predniSONE 20 MG TABLET (UD) PO SCH (10:00)
[2023-04-09] MEDS ORDERED: HYDROCHLOROTHIAZIDE 12.5 MG CAPSULE (FP) PO SCH (10:00)
[2023-04-09] MEDS ORDERED: SODIUM ZIRCONIUM CYCLOSILICATE (LOKELMA) 5 GM PACKET PO SCH (10:00)
[2023-04-09] MEDS ORDERED: ASPIRIN 81 MG CHEWABLE TABLETS PO SCH (10:00)
[2023-04-09] MEDS ORDERED: BICTEGRAV/EMTRICIT/TENOFOV (BIKTARVY) 50-200-25 MG TABLET PO SCH (10:00)
[2023-04-09] MEDS: FLUTICASONE/UMECLIDIN/VILANTER(200-62.5-25 TRELEGY ELLIPTA) INAHLER IH SCH (11:02)
[2023-04-09] MEDS ORDERED: NYSTATIN 500,000 UNITS/5 ML SUSPENSION PO ONE (12:45)
[2023-04-09 18:50] VITALS: RESP 20
[2023-04-09] MEDS: ATORVASTATIN CA 20 MG TABLET (FP) PO SCH (21:40)
[2023-04-10 00:51] VITALS: BP 112/68; PULSE 90; TEMP 98.5
[2023-04-10] MEDS ORDERED: methylPREDNISolone NA SUCC 40 MG/1 ML VIAL IVPUSH SCH (10:00)
== END 2023-04-10 03:30 | disposition home or self-care (01) ==
LOC: JER 09:38 → JERBED 15:44 → J4W 19:46
PROVIDERS: ADMIT Internal Medicine; ATTEND Internal Medicine
PROC: 3E0F7GC Introduction of Other Therapeutic Substance into Respiratory Tract, Via Natural or Artificial Opening (ICD-10-PCS; principal; 2023-04-08)
PROC: 3E023GC Introduction of Other Therapeutic Substance into Muscle, Percutaneous Approach (ICD-10-PCS; 2023-04-08)
PROC: 3E033GC Introduction of Other Therapeutic Substance into Peripheral Vein, Percutaneous Approach (ICD-10-PCS; 2023-04-08)
DX: J96.11 Chronic respiratory failure with hypoxia (principal); I10 Essential (primary) hypertension; E78.5 Hyperlipidemia, unspecified; J44.9 Chronic obstructive pulmonary disease, unspecified; Z85.118 Personal history of other malignant neoplasm of bronchus and lung; R77.8 Other specified abnormalities of plasma proteins; B20 Human immunodeficiency virus [HIV] disease; Z99.81 Dependence on supplemental oxygen; R55 Syncope and collapse; Z87.891 Personal history of nicotine dependence
CPT/HCPCS: 0241U-QW; 36415; 71045-TC-FY; 80053; 82962; 83735; 84100; 84484; 85025; 93005; 93010; 93306-TC; 94640; 96372; 96374; 97116-GP; 97162-GP; 99285-25; G0378

== ENCOUNTER 2023-04-13 11:40 | Observation (INO) | payer OTHER ==
[2023-04-13 13:32] LABS: BASO % 0.7 % (0-2.0); EOS % 0.5 % (0-4.5); HEMATOCRIT 40.1 % (35.4-49); HEMOGLOBIN 12.6 GM/dL (11.7-16.9); LYMPH % 10.8 % (8-40); MCH 30.2 pg (25.7-33.7); MCHC 31.4 g/dl (32.0-35.9); MEAN PLT VOLUME 8.7 fl (7.5-11.1); MONO % 7.1 % (3.8-10.2); NEUT % 80.9 % (42.8-82.8); PLATELET COUNT 223 10^3/uL (134-434); RBC 4.18 M/mm3 (4.00-5.60); RDW 13.2 % (11.9-15.9); WHITE BLOOD COUNT 12.5 K/mm3 (4.0-10.0)
[2023-04-13 13:52] LABS: POTASSIUM 4.2 mmol/L (3.5-5.1)
[2023-04-13 13:54] LABS: CALCIUM 9.8 mg/dL (8.5-10.1)
[2023-04-13 13:55] LABS: ALBUMIN 3.5 g/dl (3.4-5.0); BLOOD UREA NITROGEN 13.4 mg/dL (7-18)
[2023-04-13 13:58] LABS: CREATININE 0.8 mg/dL (0.55-1.3)
[2023-04-13 14:00] LABS: TOT PROT 6.5 g/dl (6.4-8.2)
[2023-04-13] MEDS ORDERED: PATIENT'S OWN MEDICATION (NON-FORMULARY) (Ipratropium/Albuterol Sulfate 1 PUFF Inhaler) IH PRN (14:19)
[2023-04-13] MEDS ORDERED: ALBUTEROL SO4 0.083% IH SOL 2.5 MG/3 ML VIAL.NEB. NEB PRN (14:19)
[2023-04-13] MEDS ORDERED: ACETAMINOPHEN 325 MG TABLET (FP) PO PRN (14:23)
[2023-04-13] MEDS: NYSTATIN 500,000 UNITS/5 ML SUSPENSION PO SCH (18:30)
[2023-04-13] MEDS ORDERED: HEPARIN NA (PORCINE) 5,000 UNITS/ML 1ML VIAL ONE (23:46)
[2023-04-13] MEDS ORDERED: ATORVASTATIN CA 20 MG TABLET (FP) ONE (23:46)
[2023-04-14] MEDS: NYSTATIN 500,000 UNITS/5 ML SUSPENSION PO SCH ×4 (00:20→19:13)
[2023-04-14] MEDS: HEPARIN NA (PORCINE) 5,000 UNITS/ML 1ML VIAL SQ SCH ×3 (00:20→21:50)
[2023-04-14] MEDS: ATORVASTATIN CA 20 MG TABLET (FP) PO SCH ×2 (00:20→21:50)
[2023-04-14] MEDS: BICTEGRAV/EMTRICIT/TENOFOV (BIKTARVY) 50-200-25 MG TABLET PO SCH (09:36)
[2023-04-14] MEDS: PANTOPRAZOLE 20 MG TABLET PO SCH (09:37)
[2023-04-14] MEDS: HYDROCHLOROTHIAZIDE 12.5 MG CAPSULE (FP) PO SCH (09:37)
[2023-04-14] MEDS: predniSONE 10 MG TABLET (UD) PO SCH (09:37)
[2023-04-14] MEDS: SODIUM ZIRCONIUM CYCLOSILICATE (LOKELMA) 5 GM PACKET PO SCH (09:37)
[2023-04-14] MEDS: BUDESONIDE/FORMETEROL FUMARATE 160/4.5 mcg INHALER IH SCH (21:51)
[2023-04-15] MEDS: NYSTATIN 500,000 UNITS/5 ML SUSPENSION PO SCH ×4 (00:11→17:21)
[2023-04-15] MEDS: BICTEGRAV/EMTRICIT/TENOFOV (BIKTARVY) 50-200-25 MG TABLET PO SCH (10:11)
[2023-04-15] MEDS: predniSONE 10 MG TABLET (UD) PO SCH (10:11)
[2023-04-15] MEDS: PANTOPRAZOLE 20 MG TABLET PO SCH (10:11)
[2023-04-15] MEDS: HYDROCHLOROTHIAZIDE 12.5 MG CAPSULE (FP) PO SCH (10:11)
[2023-04-15] MEDS: SODIUM ZIRCONIUM CYCLOSILICATE (LOKELMA) 5 GM PACKET PO SCH (10:12)
[2023-04-15] MEDS: BUDESONIDE/FORMETEROL FUMARATE 160/4.5 mcg INHALER IH SCH ×2 (10:12→22:26)
[2023-04-15] MEDS: HEPARIN NA (PORCINE) 5,000 UNITS/ML 1ML VIAL SQ SCH ×2 (10:12→22:23)
[2023-04-15 15:34] VITALS: BMI 19.0
[2023-04-15] MEDS: FLUTICASONE/UMECLIDIN/VILANTER(200-62.5-25 TRELEGY ELLIPTA) INAHLER IH SCH (19:33)
[2023-04-15] MEDS: ATORVASTATIN CA 20 MG TABLET (FP) PO SCH (22:25)
[2023-04-16] MEDS: NYSTATIN 500,000 UNITS/5 ML SUSPENSION PO SCH ×3 (00:46→11:31)
[2023-04-16] MEDS: SODIUM ZIRCONIUM CYCLOSILICATE (LOKELMA) 5 GM PACKET PO SCH (09:56)
[2023-04-16] MEDS: predniSONE 10 MG TABLET (UD) PO SCH (09:56)
[2023-04-16] MEDS: PANTOPRAZOLE 20 MG TABLET PO SCH (09:56)
[2023-04-16] MEDS: HYDROCHLOROTHIAZIDE 12.5 MG CAPSULE (FP) PO SCH (09:56)
[2023-04-16] MEDS: HEPARIN NA (PORCINE) 5,000 UNITS/ML 1ML VIAL SQ SCH (09:56)
[2023-04-16] MEDS: BICTEGRAV/EMTRICIT/TENOFOV (BIKTARVY) 50-200-25 MG TABLET PO SCH (09:56)
[2023-04-16] MEDS: BUDESONIDE/FORMETEROL FUMARATE 160/4.5 mcg INHALER IH SCH (09:57)
[2023-04-16 11:59] VITALS: RESP 20
[2023-04-16 13:34] VITALS: BP 139/84; PULSE 86; TEMP 98.8
== END 2023-04-16 14:40 | disposition home health service (06) ==
LOC: JER 11:40 → JERBED 14:10 → J8W 04-14 14:24
PROVIDERS: ADMIT Internal Medicine; ATTEND Nurse Practitioner Family
PROC: 3E0F7GC Introduction of Other Therapeutic Substance into Respiratory Tract, Via Natural or Artificial Opening (ICD-10-PCS; principal; 2023-04-13)
PROC: 3E023GC Introduction of Other Therapeutic Substance into Muscle, Percutaneous Approach (ICD-10-PCS; 2023-04-13)
DX: R06.02 Shortness of breath (principal); Z91.198 Patient's noncompliance with other medical treatment and regimen for other reason; J44.9 Chronic obstructive pulmonary disease, unspecified; Z99.81 Dependence on supplemental oxygen; B20 Human immunodeficiency virus [HIV] disease; E78.5 Hyperlipidemia, unspecified; Z85.118 Personal history of other malignant neoplasm of bronchus and lung; Z29.9 Encounter for prophylactic measures, unspecified; Z87.891 Personal history of nicotine dependence; N43.2 Other hydrocele
CPT/HCPCS: 36415; 71045-TC-FY; 80053; 84484; 85025; 93005; 93010; 94640; 94761; 96372; 99285-25; G0378; J1644

== ENCOUNTER 2023-06-13 09:57 | Emergency (ER) | payer OTHER ==
[2023-06-13 10:23] VITALS: BP 144/76; RESP 16; TEMP 98.3; BMI 20.5
[2023-06-13] MEDS ORDERED: ALBUTEROL SO4 2.5/IPRATROPIUM 0.5 INH SOL 3 ML VIAL.NEB. NEB ONE ×2 (10:31→10:39)
[2023-06-13 11:06] VITALS: PULSE 81
== END 2023-06-13 16:26 | disposition home or self-care (01) ==
LOC: JER 09:57
PROC: 3E0F7GC Introduction of Other Therapeutic Substance into Respiratory Tract, Via Natural or Artificial Opening (ICD-10-PCS; principal; 2023-06-13)
DX: R05.9 Cough, unspecified (principal); R06.02 Shortness of breath; J44.9 Chronic obstructive pulmonary disease, unspecified; Z20.822 Contact with and (suspected) exposure to COVID-19
CPT/HCPCS: 0241U-QW; 71045-TC-FY; 93005; 93010; 94640; 99285-25

== ENCOUNTER 2023-06-14 19:18 | Emergency (ER) | payer OTHER ==
[2023-06-14 19:50] VITALS: BP 110/80; PULSE 98; RESP 17; TEMP 98.1; BMI 22.3
[2023-06-14] MEDS ORDERED: ALBUTEROL SO4 2.5/IPRATROPIUM 0.5 INH SOL 3 ML VIAL.NEB. NEB ONE ×2 (20:23→21:01)
[2023-06-14] MEDS ORDERED: methylPREDNISolone NA SUCC 125 MG/2 ML VIAL IVPB ONE (20:24)
[2023-06-14] MEDS ORDERED: DEXAMETHASONE 4 MG TABLET (FP) PO ONE (20:56)
[2023-06-14] MEDS ORDERED: DEXAMETHASONE 4 MG TABLET (FP) ONE (21:02)
== END 2023-06-15 00:57 | disposition home or self-care (01) ==
LOC: JER 19:18
PROC: 3E0F7GC Introduction of Other Therapeutic Substance into Respiratory Tract, Via Natural or Artificial Opening (ICD-10-PCS; principal; 2023-06-14)
DX: J44.9 Chronic obstructive pulmonary disease, unspecified (principal); R06.02 Shortness of breath; R05.9 Cough, unspecified; Z20.822 Contact with and (suspected) exposure to COVID-19
CPT/HCPCS: 0241U-QW; 71046-TC-FY; 93005; 93010; 94640; 99285-25

== ENCOUNTER 2023-06-17 00:40 | Inpatient (IN) | payer OTHER ==
[2023-06-17 01:14] VITALS: BMI 20.5
[2023-06-17 04:15] LABS: HEMATOCRIT 40.1 % (35.4-49); MCH 30.4 pg (25.7-33.7); MCHC 32.3 g/dl (32.0-35.9); MEAN PLT VOLUME 7.3 fl (7.5-11.1); PLATELET COUNT 357 10^3/uL (134-434); RBC 4.27 M/mm3 (4.00-5.60); RDW 12.9 % (11.9-15.9); WHITE BLOOD COUNT 13.4 K/mm3 (4.0-10.0)
[2023-06-17 04:39] LABS: CHLORIDE 89 mmol/L (98-107); POTASSIUM 4.1 mmol/L (3.5-5.1); SODIUM 140 mmol/L (136-145)
[2023-06-17 04:41] LABS: ALBUMIN 3.6 g/dl (3.4-5.0); BLOOD UREA NITROGEN 23.2 mg/dL (7-18); CALCIUM 9.8 mg/dL (8.5-10.1); GLUCOSE,RANDOM 107 mg/dL (74-106)
[2023-06-17 04:44] LABS: CREATININE 0.8 mg/dL (0.55-1.3); SGPT/ALT 15 U/L (13-61)
[2023-06-17 04:45] LABS: SGOT/AST 29 U/L (15-37)
[2023-06-17 04:46] LABS: BILIRUBIN,TOTAL 0.2 mg/dL (0.2-1); TOT PROT 7.3 g/dl (6.4-8.2)
[2023-06-17 04:47] LABS: ALK PHOS 142 U/L (45-117)
[2023-06-17 04:49] LABS: N-TERMINAL BNP 77.5 pg/ml (5-125)
[2023-06-17 05:09] LABS: ANION GAP 7 mmol/L (4-13); CO2 > 45 mmol/L (21-32)
[2023-06-17 09:19] LABS: ANISOCYTOSIS 2+; MACROCYTOSIS 0; TOXIC GRANULATION 2+
[2023-06-17] MEDS ORDERED: HEPARIN NA (PORCINE) 5,000 UNITS/ML 1ML VIAL SQ SCH (14:00)
[2023-06-17] MEDS ORDERED: ALBUTEROL SO4 2.5/IPRATROPIUM 0.5 INH SOL 3 ML VIAL.NEB. NEB SCH (14:00)
[2023-06-17] MEDS ORDERED: HEPARIN NA (PORCINE) 5,000 UNITS/ML 1ML VIAL ONE (14:04)
[2023-06-17] MEDS ORDERED: ALBUTEROL SO4 2.5/IPRATROPIUM 0.5 INH SOL 3 ML VIAL.NEB. NEB ONE (14:04)
[2023-06-17 14:30] LABS: EPI CELLS 17 /uL (0-25.1); HYALINE CASTS 2 /uL (0-3.1); PH,URINE 6.5 (5.0-8.0); URINE APPEARANCE CLEAR; URINE BACTERIA 403 /uL (0-1359); URINE BILIRUBIN NEGATIVE (NEGATIVE); URINE COLOR YELLOW; URINE GLUCOSE (UA) NEGATIVE (NEGATIVE); URINE KETONE NEGATIVE (NEGATIVE); URINE LEUK ESTERASE TRACE (NEGATIVE); URINE NITRITE NEGATIVE (NEGATIVE); URINE PROTEIN TRACE (NEGATIVE); URINE WBC 33 /uL (0-25.8)
[2023-06-17 15:35] LABS: URINE RBC 93 /uL (0-23.9)
[2023-06-17 18:03] LABS: ARTERIAL BLD GAS O2 SATURATION 96.4 % (95-98); ARTERIAL BLOOD GAS BASE EXCESS 18.7 mmol/L (-2-2); ARTERIAL BLOOD GAS PO2 93.3 mmHg (80-100)
[2023-06-17 18:07] LABS: ALLENS TEST POSITIVE
[2023-06-17] MEDS ORDERED: FLU VACCINE (FLULAVAL) PF 60 MCG/0.5 ML SYRINGE 2023-2024 IM ONE (20:00)
[2023-06-17] MEDS: ALBUTEROL SO4 2.5/IPRATROPIUM 0.5 INH SOL 3 ML VIAL.NEB. NEB SCH (20:05)
[2023-06-17] MEDS: ATORVASTATIN CA 20 MG TABLET (FP) PO SCH (22:05)
[2023-06-18] MEDS: ALBUTEROL SO4 2.5/IPRATROPIUM 0.5 INH SOL 3 ML VIAL.NEB. NEB SCH ×4 (08:10→20:17)
[2023-06-18] MEDS ORDERED: HYDROCHLOROTHIAZIDE 12.5 MG CAPSULE (FP) PO SCH (10:00)
[2023-06-18] MEDS: BICTEGRAV/EMTRICIT/TENOFOV (BIKTARVY) 50-200-25 MG TABLET PO SCH (11:16)
[2023-06-18] MEDS: ENOXAPARIN NA (PORCINE) 40 MG/0.4 ML DISP.SYRIN SQ SCH (11:16)
[2023-06-18] MEDS: predniSONE 20 MG TABLET (UD) PO SCH (15:58)
[2023-06-18] MEDS: ATORVASTATIN CA 20 MG TABLET (FP) PO SCH (21:10)
[2023-06-19] MEDS: ALBUTEROL SO4 2.5/IPRATROPIUM 0.5 INH SOL 3 ML VIAL.NEB. NEB SCH ×4 (07:48→20:05)
[2023-06-19 08:47] LABS: HEMATOCRIT 35.6 % (35.4-49); HEMOGLOBIN 11.1 GM/dL (11.7-16.9); MCH 29.5 pg (25.7-33.7); MCHC 31.1 g/dl (32.0-35.9); MEAN CELL VOLUME 95.1 fl (80-96); MEAN PLT VOLUME 7.6 fl (7.5-11.1); PLATELET COUNT 354 10^3/uL (134-434); RBC 3.75 M/mm3 (4.00-5.60); RDW 12.7 % (11.9-15.9); WHITE BLOOD COUNT 16.5 K/mm3 (4.0-10.0)
[2023-06-19 09:07] LABS: POTASSIUM 3.8 mmol/L (3.5-5.1)
[2023-06-19 09:10] LABS: CALCIUM 9.4 mg/dL (8.5-10.1)
[2023-06-19 09:11] LABS: ALBUMIN 3.2 g/dl (3.4-5.0); BLOOD UREA NITROGEN 14.7 mg/dL (7-18)
[2023-06-19 09:13] LABS: BILIRUBIN,TOTAL 0.2 mg/dL (0.2-1)
[2023-06-19 09:14] LABS: CREATININE 0.7 mg/dL (0.55-1.3)
[2023-06-19 09:15] LABS: TOT PROT 6.7 g/dl (6.4-8.2)
[2023-06-19] MEDS: predniSONE 20 MG TABLET (UD) PO SCH (11:11)
[2023-06-19] MEDS: BICTEGRAV/EMTRICIT/TENOFOV (BIKTARVY) 50-200-25 MG TABLET PO SCH (11:11)
[2023-06-19] MEDS: ENOXAPARIN NA (PORCINE) 40 MG/0.4 ML DISP.SYRIN SQ SCH (11:11)
[2023-06-19 17:02] LABS: ARTERIAL BLD GAS O2 SATURATION 95.9 % (95-98); ARTERIAL BLOOD GAS BASE EXCESS 16.3 mmol/L (-2-2); ARTERIAL BLOOD GAS PO2 84.2 mmHg (80-100); ARTERIAL BLOOD GAS pH 7.405 (7.350-7.450)
[2023-06-19 17:06] LABS: ALLENS TEST POSITIVE
[2023-06-19] MEDS: ATORVASTATIN CA 20 MG TABLET (FP) PO SCH (21:37)
[2023-06-20] MEDS: ALBUTEROL SO4 2.5/IPRATROPIUM 0.5 INH SOL 3 ML VIAL.NEB. NEB SCH ×4 (07:35→20:05)
[2023-06-20 09:07] LABS: HEMATOCRIT 33.3 % (35.4-49); HEMOGLOBIN 10.9 GM/dL (11.7-16.9); MCH 30.7 pg (25.7-33.7); MCHC 32.7 g/dl (32.0-35.9); MEAN CELL VOLUME 93.7 fl (80-96); MEAN PLT VOLUME 7.4 fl (7.5-11.1); PLATELET COUNT 327 10^3/uL (134-434); RBC 3.55 M/mm3 (4.00-5.60); RDW 12.8 % (11.9-15.9); WHITE BLOOD COUNT 15.4 K/mm3 (4.0-10.0)
[2023-06-20] MEDS: predniSONE 20 MG TABLET (UD) PO SCH (09:07)
[2023-06-20] MEDS: ENOXAPARIN NA (PORCINE) 40 MG/0.4 ML DISP.SYRIN SQ SCH (09:08)
[2023-06-20] MEDS: BICTEGRAV/EMTRICIT/TENOFOV (BIKTARVY) 50-200-25 MG TABLET PO SCH (09:08)
[2023-06-20 09:26] LABS: POTASSIUM 4.2 mmol/L (3.5-5.1)
[2023-06-20 09:29] LABS: CALCIUM 9.4 mg/dL (8.5-10.1)
[2023-06-20 09:30] LABS: ALBUMIN 3.1 g/dl (3.4-5.0)
[2023-06-20 09:31] LABS: BLOOD UREA NITROGEN 15.2 mg/dL (7-18)
[2023-06-20 09:34] LABS: CREATININE 0.7 mg/dL (0.55-1.3)
[2023-06-20 09:35] LABS: BILIRUBIN,TOTAL 0.2 mg/dL (0.2-1); TOT PROT 6.3 g/dl (6.4-8.2)
[2023-06-20] MEDS: DOXYCYCLINE HYCLATE 100 MG CAPSULE PO SCH (17:55)
[2023-06-20] MEDS: ATORVASTATIN CA 20 MG TABLET (FP) PO SCH (21:17)
[2023-06-21] MEDS: ALBUTEROL SO4 2.5/IPRATROPIUM 0.5 INH SOL 3 ML VIAL.NEB. NEB SCH ×4 (07:30→20:27)
[2023-06-21 08:35] LABS: HEMATOCRIT 33.2 % (35.4-49); HEMOGLOBIN 10.3 GM/dL (11.7-16.9); MCH 29.8 pg (25.7-33.7); MCHC 31.1 g/dl (32.0-35.9); MEAN CELL VOLUME 95.8 fl (80-96); MEAN PLT VOLUME 7.6 fl (7.5-11.1); PLATELET COUNT 319 10^3/uL (134-434); RBC 3.47 M/mm3 (4.00-5.60); RDW 12.7 % (11.9-15.9)
[2023-06-21 08:46] LABS: CHLORIDE 98 mmol/L (98-107); POTASSIUM 4.7 mmol/L (3.5-5.1); SODIUM 141 mmol/L (136-145)
[2023-06-21 08:51] LABS: BLOOD UREA NITROGEN 20.5 mg/dL (7-18); CALCIUM 9.2 mg/dL (8.5-10.1); GLUCOSE,RANDOM 99 mg/dL (74-106)
[2023-06-21 08:55] LABS: CREATININE 0.7 mg/dL (0.55-1.3)
[2023-06-21 09:12] LABS: ANION GAP -2 mmol/L (4-13); CO2 > 45 mmol/L (21-32)
[2023-06-21] MEDS: ENOXAPARIN NA (PORCINE) 40 MG/0.4 ML DISP.SYRIN SQ SCH (09:16)
[2023-06-21] MEDS: predniSONE 20 MG TABLET (UD) PO SCH (09:16)
[2023-06-21] MEDS: BICTEGRAV/EMTRICIT/TENOFOV (BIKTARVY) 50-200-25 MG TABLET PO SCH (09:16)
[2023-06-21] MEDS: DOXYCYCLINE HYCLATE 100 MG CAPSULE PO SCH ×2 (09:16→17:21)
[2023-06-21] MEDS: ATORVASTATIN CA 20 MG TABLET (FP) PO SCH (21:51)
[2023-06-22] MEDS: ALBUTEROL SO4 2.5/IPRATROPIUM 0.5 INH SOL 3 ML VIAL.NEB. NEB PRN (04:53)
[2023-06-22] MEDS: ALBUTEROL SO4 2.5/IPRATROPIUM 0.5 INH SOL 3 ML VIAL.NEB. NEB SCH ×4 (07:21→20:25)
[2023-06-22 07:44] LABS: HEMATOCRIT 31.7 % (35.4-49); HEMOGLOBIN 9.8 GM/dL (11.7-16.9); MCH 29.8 pg (25.7-33.7); MEAN PLT VOLUME 7.5 fl (7.5-11.1); PLATELET COUNT 294 10^3/uL (134-434); RBC 3.31 M/mm3 (4.00-5.60); RDW 12.9 % (11.9-15.9); WHITE BLOOD COUNT 13.5 K/mm3 (4.0-10.0)
[2023-06-22 08:08] LABS: POTASSIUM 4.2 mmol/L (3.5-5.1)
[2023-06-22 08:09] LABS: CALCIUM 9.1 mg/dL (8.5-10.1)
[2023-06-22 08:10] LABS: BLOOD UREA NITROGEN 16.5 mg/dL (7-18)
[2023-06-22 08:13] LABS: CREATININE 0.7 mg/dL (0.55-1.3)
[2023-06-22] MEDS: BENZONATATE 200 MG CAPSULE PO PRN (08:40)
[2023-06-22] MEDS: BICTEGRAV/EMTRICIT/TENOFOV (BIKTARVY) 50-200-25 MG TABLET PO SCH (09:13)
[2023-06-22] MEDS: predniSONE 20 MG TABLET (UD) PO SCH (09:14)
[2023-06-22] MEDS: ENOXAPARIN NA (PORCINE) 40 MG/0.4 ML DISP.SYRIN SQ SCH (09:14)
[2023-06-22] MEDS: DOXYCYCLINE HYCLATE 100 MG CAPSULE PO SCH ×2 (09:14→17:12)
[2023-06-22] MEDS: ATORVASTATIN CA 20 MG TABLET (FP) PO SCH (22:15)
[2023-06-23] MEDS: ALBUTEROL SO4 2.5/IPRATROPIUM 0.5 INH SOL 3 ML VIAL.NEB. NEB SCH ×4 (08:45→20:20)
[2023-06-23] MEDS: BICTEGRAV/EMTRICIT/TENOFOV (BIKTARVY) 50-200-25 MG TABLET PO SCH (10:12)
[2023-06-23] MEDS: ENOXAPARIN NA (PORCINE) 40 MG/0.4 ML DISP.SYRIN SQ SCH (10:12)
[2023-06-23] MEDS: predniSONE 20 MG TABLET (UD) PO SCH (10:13)
[2023-06-23] MEDS: DOXYCYCLINE HYCLATE 100 MG CAPSULE PO SCH ×2 (10:14→18:12)
[2023-06-23] MEDS: ATORVASTATIN CA 20 MG TABLET (FP) PO SCH (21:32)
[2023-06-24] MEDS: ALBUTEROL SO4 2.5/IPRATROPIUM 0.5 INH SOL 3 ML VIAL.NEB. NEB SCH ×4 (07:57→20:20)
[2023-06-24] MEDS: ENOXAPARIN NA (PORCINE) 40 MG/0.4 ML DISP.SYRIN SQ SCH (10:31)
[2023-06-24] MEDS: predniSONE 20 MG TABLET (UD) PO SCH (10:32)
[2023-06-24] MEDS: BICTEGRAV/EMTRICIT/TENOFOV (BIKTARVY) 50-200-25 MG TABLET PO SCH (10:32)
[2023-06-24] MEDS: DOXYCYCLINE HYCLATE 100 MG CAPSULE PO SCH ×2 (10:33→17:07)
[2023-06-24] MEDS: ATORVASTATIN CA 20 MG TABLET (FP) PO SCH (21:08)
[2023-06-25] MEDS: ALBUTEROL SO4 2.5/IPRATROPIUM 0.5 INH SOL 3 ML VIAL.NEB. NEB SCH ×4 (07:35→20:37)
[2023-06-25] MEDS: BICTEGRAV/EMTRICIT/TENOFOV (BIKTARVY) 50-200-25 MG TABLET PO SCH (09:49)
[2023-06-25] MEDS: predniSONE 20 MG TABLET (UD) PO SCH (09:49)
[2023-06-25] MEDS: DOXYCYCLINE HYCLATE 100 MG CAPSULE PO SCH ×2 (09:54→17:43)
[2023-06-25] MEDS: ATORVASTATIN CA 20 MG TABLET (FP) PO SCH (22:05)
[2023-06-26] MEDS: ALBUTEROL SO4 2.5/IPRATROPIUM 0.5 INH SOL 3 ML VIAL.NEB. NEB SCH (07:14)
[2023-06-26] MEDS: predniSONE 20 MG TABLET (UD) PO SCH (10:17)
[2023-06-26] MEDS: BICTEGRAV/EMTRICIT/TENOFOV (BIKTARVY) 50-200-25 MG TABLET PO SCH (10:18)
[2023-06-26] MEDS: DOXYCYCLINE HYCLATE 100 MG CAPSULE PO SCH ×2 (10:20→17:57)
[2023-06-26] MEDS: ATORVASTATIN CA 20 MG TABLET (FP) PO SCH (22:53)
[2023-06-27] MEDS: ALBUTEROL SO4 2.5/IPRATROPIUM 0.5 INH SOL 3 ML VIAL.NEB. NEB PRN (07:51)
[2023-06-27 09:17] LABS: BASO % 0.2 % (0-2.0); EOS % 0.8 % (0-4.5); HEMATOCRIT 38.4 % (35.4-49); HEMOGLOBIN 11.9 GM/dL (11.7-16.9); LYMPH % 22.3 % (8-40); MCH 29.7 pg (25.7-33.7); MEAN CELL VOLUME 95.7 fl (80-96); MEAN PLT VOLUME 8.6 fl (7.5-11.1); NEUT % 66.7 % (42.8-82.8); PLATELET COUNT 333 10^3/uL (134-434); RBC 4.01 M/mm3 (4.00-5.60); RDW 13.3 % (11.9-15.9); WHITE BLOOD COUNT 11.7 K/mm3 (4.0-10.0)
[2023-06-27 09:43] LABS: POTASSIUM 4.7 mmol/L (3.5-5.1)
[2023-06-27 09:50] LABS: ALBUMIN 3.3 g/dl (3.4-5.0); CALCIUM 9.9 mg/dL (8.5-10.1)
[2023-06-27 09:51] LABS: BLOOD UREA NITROGEN 16.6 mg/dL (7-18)
[2023-06-27 09:53] LABS: CREATININE 0.6 mg/dL (0.55-1.3)
[2023-06-27 09:55] LABS: BILIRUBIN,TOTAL 0.3 mg/dL (0.2-1); TOT PROT 6.3 g/dl (6.4-8.2)
[2023-06-27] MEDS: BICTEGRAV/EMTRICIT/TENOFOV (BIKTARVY) 50-200-25 MG TABLET PO SCH (10:00)
[2023-06-27] MEDS: predniSONE 20 MG TABLET (UD) PO SCH (10:00)
[2023-06-27] MEDS ORDERED: ALBUTEROL SO4 2.5/IPRATROPIUM 0.5 INH SOL 3 ML VIAL.NEB. NEB ONE (20:01)
[2023-06-27] MEDS: ATORVASTATIN CA 20 MG TABLET (FP) PO SCH (22:33)
[2023-06-28] MEDS: MULTIVITAMINS (DAILY MVI) TABLET (FP) PO SCH (09:34)
[2023-06-28] MEDS: BICTEGRAV/EMTRICIT/TENOFOV (BIKTARVY) 50-200-25 MG TABLET PO SCH (09:34)
[2023-06-28] MEDS: predniSONE 20 MG TABLET (UD) PO SCH (09:34)
[2023-06-28] MEDS: HEPARIN NA (PORCINE) 5,000 UNITS/ML 1ML VIAL SQ SCH ×2 (15:05→22:27)
[2023-06-28] MEDS: ALBUTEROL SO4 0.083% IH SOL 2.5 MG/3 ML VIAL.NEB. NEB PRN ×2 (15:45→20:00)
[2023-06-28] MEDS: ATORVASTATIN CA 20 MG TABLET (FP) PO SCH (22:27)
[2023-06-29] MEDS: BICTEGRAV/EMTRICIT/TENOFOV (BIKTARVY) 50-200-25 MG TABLET PO SCH (09:35)
[2023-06-29] MEDS: HEPARIN NA (PORCINE) 5,000 UNITS/ML 1ML VIAL SQ SCH ×2 (09:36→21:40)
[2023-06-29] MEDS: MULTIVITAMINS (DAILY MVI) TABLET (FP) PO SCH (09:36)
[2023-06-29] MEDS: predniSONE 20 MG TABLET (UD) PO SCH (09:36)
[2023-06-29] MEDS: ALBUTEROL SO4 0.083% IH SOL 2.5 MG/3 ML VIAL.NEB. NEB PRN ×2 (17:00→20:55)
[2023-06-29] MEDS: ATORVASTATIN CA 20 MG TABLET (FP) PO SCH (21:40)
[2023-06-30] MEDS: BICTEGRAV/EMTRICIT/TENOFOV (BIKTARVY) 50-200-25 MG TABLET PO SCH (10:59)
[2023-06-30] MEDS: predniSONE 20 MG TABLET (UD) PO SCH (10:59)
[2023-06-30] MEDS: HEPARIN NA (PORCINE) 5,000 UNITS/ML 1ML VIAL SQ SCH ×2 (10:59→22:08)
[2023-06-30] MEDS: MULTIVITAMINS (DAILY MVI) TABLET (FP) PO SCH (10:59)
[2023-06-30] MEDS ORDERED: predniSONE 10 MG TABLET (UD) PO SCH (12:13)
[2023-06-30] MEDS: NYSTATIN 500,000 UNITS/5 ML SUSPENSION PO SCH ×2 (12:50→17:40)
[2023-06-30] MEDS: ATORVASTATIN CA 20 MG TABLET (FP) PO SCH (22:10)
[2023-07-01] MEDS: NYSTATIN 500,000 UNITS/5 ML SUSPENSION PO SCH ×4 (00:10→18:06)
[2023-07-01] MEDS: ALBUTEROL SO4 0.083% IH SOL 2.5 MG/3 ML VIAL.NEB. NEB PRN (05:20)
[2023-07-01] MEDS: BENZONATATE 200 MG CAPSULE PO PRN (06:13)
[2023-07-01] MEDS: MULTIVITAMINS (DAILY MVI) TABLET (FP) PO SCH (09:43)
[2023-07-01] MEDS: HEPARIN NA (PORCINE) 5,000 UNITS/ML 1ML VIAL SQ SCH (09:43)
[2023-07-01] MEDS: BICTEGRAV/EMTRICIT/TENOFOV (BIKTARVY) 50-200-25 MG TABLET PO SCH (11:51)
[2023-07-01 15:59] VITALS: BP 137/70; PULSE 81; RESP 16; TEMP 98.7
== END 2023-07-01 20:40 | disposition home or self-care (01) | DRG 190 ==
LOC: JER 00:40 → JERBED 05:49 → J7W 14:40 → OBSVTOIN 06-19 16:45
PROVIDERS: ADMIT Internal Medicine
DX: J44.1 Chronic obstructive pulmonary disease with (acute) exacerbation (principal); G93.41 Metabolic encephalopathy; J96.22 Acute and chronic respiratory failure with hypercapnia; E44.0 Moderate protein-calorie malnutrition; J96.11 Chronic respiratory failure with hypoxia; I10 Essential (primary) hypertension; E78.5 Hyperlipidemia, unspecified; E87.8 Other disorders of electrolyte and fluid balance, not elsewhere classified; R42 Dizziness and giddiness; R62.7 Adult failure to thrive; Z68.20 Body mass index [BMI] 20.0-20.9, adult; Z85.118 Personal history of other malignant neoplasm of bronchus and lung; Z99.81 Dependence on supplemental oxygen
CPT/HCPCS: 0241U-QW; 36415; 36600; 70450-TC; 71045-TC-FY; 71046-TC-FY; 80048; 80053; 81003; 82607; 82746; 82803; 83880; 84484; 85025; 85027; 90686; 93005; 93010; 94640; 94660; 97116-GP; 97162-GP; 99285-25; G0008; G0378; J1644